=== PATIENT | female | born 1955 | race Caucasian/White ===

== ENCOUNTER → 2016-05-06 | Outpatient (CLI) | payer OTHER ==
[~2016-05-06] MED LIST: ALLE25CA OR; BACL10TA2 PO; BUPIVACAINE HCL 0.25% 10 ML VIAL As Ordered ONE; BUPIVACAINE HCL 0.25% 30 ML VIAL As Ordered ONE; CALC500T49 OR; CARI350T; CRANBERRY TABLETS PO; DESONIDE TOP; IBUP800T OR; IBUP80TA PO; LIDO5DIS; LIDO5DIS TD; Nasonex; Omega 3 PO; RED RICE YEAST; SING10TA31 PO; SING10TA32 PO; SOMA250T; THERGRAN; TRIAMCINOLONE ACETONIDE SUSP 40 MG/ML VIAL (J3301) As Ordered ONE; VIT D 2000 PO; [UNRECOGNIZED DRUG - OTHER]; [UNRECOGNIZED DRUG - OTHER] PO; patanol OU
--- NOTE | 2016-05-17 00:13 | ECWPNPC ---
PATIENT NAME: ZAKIA BLAKE : 1955 GENDER: FEMALE VISIT DATE: 05/06/2016 DISCHARGE DATE: 05/06/16 1117 VISIT LOCKED DATE TIME: PHYSICIAN: JAVAD VILLALOBOS RESOURCE: JAVAD VILLALOBOS REASON FOR APPOINTMENT 1. TPI W/C HISTORY OF PRESENT ILLNESS HISTORY OF PRESENT ILLNESS: PAIN THE PATIENT DESCRIBES THE PAIN... FALL RISK SCREENING: SCREENING :NO FALLS IN THE PAST YEAR CURRENT MEDICATIONS TAKING CALCIUM 500 MG TABLET ORALLY DAILY, NOTES: 05-05-16699 TAKING BENADRYL 25 MG TABLET 1 TABLET NEEDED ORALLY EVERY 6 HRS, NOTES: NONE LATELY TAKING IBUPROFEN 800 MG TABLET 1 TABLET NEEDED ORALLY THREE TIMES A DAY, NOTES: 1NONE LATELY TAKING SINGULAIR 10 MG TABLET 1 TABLET ORALLY ONCE A DAY, NOTES: 05-06-16529 TAKING VITAMIN D 1000 UNIT CAPSULE 1 CAPSULE ORALLY ONCE A DAY, NOTES: 05-05-16699 TAKING CRANBERRY TABLET 1 TAB ORALLY DAILY, NOTES: 05-05-16699 TAKING DESONIDE CREAM 1 APPLICATION TO AFFECTED AREA EXTERNALLY TWICE A DAY, NOTES: 05-05-16699 TAKING PATANOL SOLUTION 1 DROP INTO AFFECTED EYE OPHTHALMIC DIRECTED, NOTES: NONE LATELY TAKING ST [place] WORT TABLET 2 TABLET ORALLY ONCE A DAY, NOTES: 05-05-16699 TAKING BACLOFEN 10 MG TABLET ORALLY BID PRN FOR SPASMS, NOTES: NONE LATELY NOT-TAKING BACLOFEN 10 MG TABLET 1 TAB ORALLY THREE TIMES A DAY MEDICATION LIST REVIEWED AND RECONCILED WITH THE PATIENT PAST MEDICAL HISTORY ASTHMA GERD ALLERGIES WHEAT: NAUSEA/VOMITING LACTOSE: NAUSEA/VOMITING: ALLERGY BANDAIDS: RASH: ALLERGY FLEXERIL: HIVES: ALLERGY ANTIBIOTIC: RASH: ALLERGY NITROFURANTOIN: RASH: ALLERGY SOCIAL HISTORY GENERAL: TOBACCO USE ARE YOU A:NONSMOKER LEARNING BARRIERS / SPECIAL NEEDS ORIENTED TO PLAN OF CARE: PATIENT, PAIN MANAGEMENT PATIENT, ORIENTED TO PLAN OF CARE: PATIENT, PAIN MANAGEMENT PATIENT. NEW PATIENT PAIN DIARY TODAY'S VISITNOTES FROM 0-10, WHAT LEVEL IS YOUR PAIN TODAY?0 PAIN CLINIC PFS, CLERGY, PUBLIC HEALTH REFERRALS PFS REFERRAL NEEDED?NO CLERGY REFERRAL NEEDED?NO PUBLIC HEALTH REFERRAL NEEDED?NO WAS THE PROVIDER NOTIFIED OF ANY PERTINENT INFO?NO PFS REFERRAL NEEDED?NO CLERGY REFERRAL NEEDED?NO PUBLIC HEALTH REFERRAL NEEDED?NO WAS THE PROVIDER NOTIFIED OF ANY PERTINENT INFO?NO REVIEW OF SYSTEMS CONSTITUTIONAL: ANY CHANGE IN YOUR MEDICAL CONDITION? NO . CHILLS NO . FEVER NO . INFECTION: DO YOU HAVE NEW INFECTIONS? NO . DO YOU HAVE HISTORY OF MRSA? NO . MUSCULOSKELETAL: ANY NEW PATTERNS OF PAIN OR NUMBNESS? NO . GASTROENTEROLOGY: ANY NEW CHANGE IN BOWEL CONTROL? NO . GENITOURINARY: ANY NEW CHANGE IN BLADDER CONTROL? NO . IS THERE A CHANCE YOU COULD BE ? NO . HEMATOLOGY/LYMPH: DO YOU TAKE ANY BLOOD THINNERS? (FOR EXAMPLE- COUMADIN, PLAVIX, AGGRENOX, PLATEL, PRADAXA, OR XARELTO) NO . WHEN WAS YOUR LAST DOSE? DATE: TIME: . NEUROLOGY: HAVE YOU FALLEN IN THE PAST 6 MONTHS? NO . ANY NEW EXTREMITY NUMBNESS OR WEAKNESS? NO . CARDIOLOGY: DO YOU HAVE A PACEMAKER OR DEFIBRILLATOR? NO . RESPIRATORY: HAVE YOU BEEN SICK IN THE PAST WEEK? NO . FEVER NO . FLU LIKE SYMPTOMS? NO . COUGH NO . INTEGUMENTARY: DO YOU HAVE ANY RASHES OR OPEN SORES? NO . ALLERGIC/IMMUNO: ARE YOU ALLERGIC TO SHELLFISH OR IV DYE? NO . ANY NEW ALLERGIES? NO . PSYCHIATRIC: DO YOU HAVE THOUGHTS OF HURTING YOURSELF OR SOMEONE ELSE? NO . ARE YOU ABUSED, NEGLECTED, OR IN AN UNSAFE ENVIRONMENT? NO . ENDOCRINOLOGY: ARE YOU DIABETIC? NO . OTHER: DO YOU NEED ANY PRESCRIPTIONS? NO . IF YES, PLEASE LIST: ____ . ANY NEW PROBLEMS WITH YOUR MEDICATIONS? NO . WHEN DID YOU LAST EAT? ____1900 05-05-16 . WHEN DID YOU LAST DRINK? ____0530 05-06-16 WATER . WHAT DID YOU LAST DRINK? ____WATER . NAME OF PERSON DRIVING YOU HOME? ____ . DO YOU HAVE ANY OTHER QUESTIONS OR CONCERNS NO . REVIEWED BY: PROVIDER: . VITAL SIGNS WT 149 LBS, HT 61 1/2, BMI 27.69 INDEX, BP 134/65 MM HG, HR 59 /MIN, RR 16 /MIN, TEMP 97.9 F, OXYGEN SAT % 96%, NA INITIALS SC 09:55, REVIEWED BY: KG. ASSESSMENTS MYALGIA - M79.1 (PRIMARY) PROCEDURES PN TRIGGER POINT INJECTION WITH STEROIDS PRE PROCEDURE DIAGNOSIS 1. MYALGIA 2. PAIN AT BILATERAL THORACIC AREA AND BILATERAL LOW BACK AREA POST PROCEDURE DIAGNOSIS 1. MYALGIA 2. PAIN AT BILATERAL THORACIC AREA AND BILATERAL LOW BACK AREA PROCEDURE TRIGGER POINT INJECTION AT BILATERAL THORACIC AREA AND BILATERAL LOW BACK AREA SURGEON DR. JAVAD VILLALOBOS PROCESSING SUPERVISOR NONE ANESTHESIA LOCAL PRE PROCEDURE NOTE THE PATIENT HAS A HISTORY OF CHRONIC PAIN AT THE BILATERAL THORACIC AREA AND BILATERAL LOW BACK AREA. I EVALUATE THE PATIENT AND REVIEWED THE CHART. THERE IS EVIDENCE OF BANDS OF TISSUE WITH RESTRICTION OF MOVEMENT AND PRESENCE OF TRIGGER POINT AT THE AFFECTED AREA. I WENT OVER THE RISKS, ALTERNATIVES, AND BENEFITS ASSOCIATED WITH THIS PROCEDURE. THE PATIENT WOULD LIKE TO PROCEED AND GIVE CONSENT TO PERFORMED THE PROCEDURE. THE PATIENT DENIES UNEXPLAINABLE WEIGHT LOSS, FEVER, CHILLS, OR NEW CHANGES IN URINARY OR BOWEL CONTROL DESCRIPTION OF PROCEDURE THE PATIENT WAS BROUGHT TO THE PROCEDURE ROOM AND PLACED IN THE SITTING POSITION. THE AREA WAS CLEANED WITH ALCOHOL. THE PROCEDURE WAS DONE USING ASEPTIC STERILE TECHNIQUE. I CHECKED LATERALITY AND THE LEVEL WHERE THE PROCEDURE WAS GOING TO BE PERFORMED WITH THE PATIENT AND THE SUPPORTING STAFF AT THE MOMENT OF THE TIME OUT IN THE PROCEDURE ROOM. USING A 25-GAUGE NEEDLE, TRIGGER POINTS WERE INJECTED AT THE BILATERAL THORACIC AREA AND BILATERAL LOW BACK AREA WITH A TOTAL OF 40 ML OF BUPIVACAINE 0.25% AND KENALOG 40 MG. THERE WAS NO EVIDENCE OF BLOOD, PARESTHESIA OR CEREBROSPINAL FLUID DURING THE PROCEDURE. THE PATIENT WAS SENT TO THE RECOVERY ROOM. THE PATIENT WAS MOVING THE EXTREMITIES AND DOING WELL. THERE WAS NO COMPLICATION DURING THE PROCEDURE POST PROCEDURE NOTE THE PATIENT WILL BE SEEN IN A FOLLOW UP IN THE NEXT FEW WEEKS. INSTRUCTIONS WERE GIVEN, QUESTIONS WERE ANSWERED, AND THE PATIENT EXPRESSED UNDERSTANDING AND AGREES WITH THE PLAN. INSTRUCTIONS WERE GIVEN, QUESTIONS WERE ANSWERED, PATIENT REPORTS UNDERSTANDING AND AGREES WITH THE PLAN. I, MICHAEL QUINONEZ, DOCUMENTED THE ABOVE INFORMATION ACTING A SCRIBE FOR DR. VILLALOBOS. I HAVE REVIEWED THE ABOVE DOCUMENT, WRITTEN BY MICHAEL QUINONEZ SCRIBArchana AND I VERIFY THAT IT IS ACCURATE. PROCEDURE CODES 81625 INJECT TRIGGER POINTS 3/> FOLLOW UP 3 WEEKS ELECTRONICALLY SIGNED BY JAVAD VILLALOBOS MD ON 05/16/2016 AT 07:42 PM EST DISCLAIMER : THIS IS A VISIT SUMMARY EXTRACTED FROM THE [employer] CHART. IT IS NOT A COPY OF THE [employer] PROGRESS NOTE. [facility]
== END ==
LOC: M PAIN 10:00
PROVIDERS: ATTEND Anesthesiology
DX: G89.29 Other chronic pain (principal); M79.1 Myalgia; M54.6 Pain in thoracic spine; M54.5 Low back pain; K21.9 Gastro-esophageal reflux disease without esophagitis; J45.909 Unspecified asthma, uncomplicated; E73.9 Lactose intolerance, unspecified; L23.1 Allergic contact dermatitis due to adhesives; Z91.018 Allergy to other foods; Z88.1 Allergy status to other antibiotic agents; Z88.8 Allergy status to other drugs, medicaments and biological substances; Z79.1 Long term (current) use of non-steroidal anti-inflammatories (NSAID); Z79.899 Other long term (current) drug therapy
CPT/HCPCS: 20553; J3301

== ENCOUNTER → 2016-06-17 | Outpatient (CLI) | payer OTHER ==
[~2016-06-17] MED LIST changes: -BUPIVACAINE HCL 0.25% 10 ML VIAL As Ordered ONE; -BUPIVACAINE HCL 0.25% 30 ML VIAL As Ordered ONE; -TRIAMCINOLONE ACETONIDE SUSP 40 MG/ML VIAL (J3301) As Ordered ONE
--- NOTE | 2016-06-26 23:25 | ECWPNPC ---
PATIENT NAME: ZAKIA BLAKE : 1955 GENDER: FEMALE VISIT DATE: 06/17/2016 DISCHARGE DATE: 06/17/16 1504 VISIT LOCKED DATE TIME: PHYSICIAN: JAVAD VILLALOBOS RESOURCE: JAVAD VILLALOBOS REASON FOR APPOINTMENT 1. W/C POST PROCEDURE HISTORY OF PRESENT ILLNESS HISTORY OF PRESENT ILLNESS: PAIN THE PATIENT DESCRIBES THE PAIN... 60 YEAR OLD FEMALE PATIENT WITH HISTORY OF CHRONIC THORACIC AND LUMBAR PAIN. PATIENT DESCRIBES THE PAIN ACHING AND THROBBING WITH A PAIN SCORE OF 3/10 ON TODAY'S VISIT. PATIENT WAS INJURED IN A WORK RELATED ACCIDENT ON 07-28-1998 WORKING FOR [employer]. 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 PATIENT RECEIVED A TPI ON 05-06-2016 AND REPORTS OF GETTING GOOD PAIN RELIEF FROM THE INJECTION, BUT THE PAIN IS SLOWLY STARTING TO COME BACK. PATIENT REPORTS THAT SHE DOES HAVE DIFFICULTIES SLEEPING AT NIGHT DUE TO THE DISCOMFORT FROM THE PAIN. PATIENT STATES THAT SOMETIMES SHE GETS A JERKING FEELING FROM HER LEGS AND THE LEFT LEG WOULD BE THE WORST. PATIENT STATES THAT TODAY SHE HAS RADIATING PAIN FROM HER GOING DOWN HER LEFT LEG, SOMETIMES IT WOULD BE BOTH LEGS, BUT MOSTLY IS OCCURS ON THE LEFT LEG. PATIENT STATES THAT HER LOW BACK HURTS THE MOST TODAY. PATIENT STATES THAT WEARING A BRA IS PAINFUL AND CAUSES HER PAIN IN HER MID BACK. PATIENT DENIES UNEXPLAINABLE WEIGHT LOSS, FEVER, CHILLS, NEW CHANGES ON HER URINARY OR BOWEL CONTROL. FALL RISK SCREENING: SCREENING :NO FALLS IN THE PAST YEAR CURRENT MEDICATIONS TAKING CALCIUM 500 MG TABLET ORALLY DAILY, NOTES: 05-05-16699 TAKING BENADRYL 25 MG TABLET 1 TABLET NEEDED ORALLY EVERY 6 HRS, NOTES: NONE LATELY TAKING IBUPROFEN 800 MG TABLET 1 TABLET NEEDED ORALLY THREE TIMES A DAY, NOTES: 1NONE LATELY TAKING SINGULAIR 10 MG TABLET 1 TABLET ORALLY ONCE A DAY, NOTES: 05-06-16529 TAKING VITAMIN D 1000 UNIT CAPSULE 1 CAPSULE ORALLY ONCE A DAY, NOTES: 05-05-16699 TAKING CRANBERRY TABLET 1 TAB ORALLY DAILY, NOTES: 05-05-16699 TAKING DESONIDE CREAM 1 APPLICATION TO AFFECTED AREA EXTERNALLY TWICE A DAY, NOTES: 05-05-16699 TAKING PATANOL SOLUTION 1 DROP INTO AFFECTED EYE OPHTHALMIC DIRECTED, NOTES: NONE LATELY TAKING ST [place] WORT TABLET 2 TABLET ORALLY ONCE A DAY, NOTES: 05-05-16699 TAKING BACLOFEN 10 MG TABLET ORALLY BID PRN FOR SPASMS, NOTES: NONE LATELY NOT-TAKING BACLOFEN 10 MG TABLET 1 TAB ORALLY THREE TIMES A DAY MEDICATION LIST REVIEWED AND RECONCILED WITH THE PATIENT PAST MEDICAL HISTORY ASTHMA GERD ALLERGIES WHEAT: NAUSEA/VOMITING LACTOSE: NAUSEA/VOMITING: ALLERGY BANDAIDS: RASH: ALLERGY FLEXERIL: HIVES: ALLERGY ANTIBIOTIC: RASH: ALLERGY NITROFURANTOIN: RASH: ALLERGY SURGICAL HISTORY CHOLECYSTECTOMY 2004 CYSTOCELE / RECTOCELE 2007 TUBAL LIGATION 1989 SPLEENECTOMY 1977 FAMILY HISTORY NO FAMILY HISTORY DOCUMENTED. SOCIAL HISTORY GENERAL: TOBACCO USE ARE YOU A:NONSMOKER LEARNING BARRIERS / SPECIAL NEEDS ORIENTED TO PLAN OF CARE: PATIENT, PAIN MANAGEMENT PATIENT, ORIENTED TO PLAN OF CARE: PATIENT, PAIN MANAGEMENT PATIENT. NEW PATIENT PAIN DIARY TODAY'S VISITNOTES FROM 0-10, WHAT LEVEL IS YOUR PAIN TODAY?0 PAIN CLINIC PFS, CLERGY, PUBLIC HEALTH REFERRALS PFS REFERRAL NEEDED?NO CLERGY REFERRAL NEEDED?NO PUBLIC HEALTH REFERRAL NEEDED?NO WAS THE PROVIDER NOTIFIED OF ANY PERTINENT INFO?NO PFS REFERRAL NEEDED?NO CLERGY REFERRAL NEEDED?NO PUBLIC HEALTH REFERRAL NEEDED?NO WAS THE PROVIDER NOTIFIED OF ANY PERTINENT INFO?NO HOSPITALIZATION/MAJOR DIAGNOSTIC PROCEDURE NO HOSPITALIZATION HISTORY. REVIEW OF SYSTEMS CONSTITUTIONAL: ANY CHANGE IN YOUR MEDICAL CONDITION? NO . CHILLS NO . FEVER NO . INFECTION: DO YOU HAVE NEW INFECTIONS? NO . DO YOU HAVE HISTORY OF MRSA? NO . MUSCULOSKELETAL: ANY NEW PATTERNS OF PAIN OR NUMBNESS? NO . GASTROENTEROLOGY: ANY NEW CHANGE IN BOWEL CONTROL? NO . GENITOURINARY: ANY NEW CHANGE IN BLADDER CONTROL? NO . IS THERE A CHANCE YOU COULD BE ? NO . HEMATOLOGY/LYMPH: DO YOU TAKE ANY BLOOD THINNERS? (FOR EXAMPLE- COUMADIN, PLAVIX, AGGRENOX, PLATEL, PRADAXA, OR XARELTO) NO . WHEN WAS YOUR LAST DOSE? DATE: TIME: . NEUROLOGY: HAVE YOU FALLEN IN THE PAST 6 MONTHS? NO . ANY NEW EXTREMITY NUMBNESS OR WEAKNESS? NO . CARDIOLOGY: DO YOU HAVE A PACEMAKER OR DEFIBRILLATOR? NO . RESPIRATORY: HAVE YOU BEEN SICK IN THE PAST WEEK? NO . FEVER NO . FLU LIKE SYMPTOMS? NO . COUGH NO . INTEGUMENTARY: DO YOU HAVE ANY RASHES OR OPEN SORES? NO . ALLERGIC/IMMUNO: ARE YOU ALLERGIC TO SHELLFISH OR IV DYE? NO . ANY NEW ALLERGIES? NO . PSYCHIATRIC: DO YOU HAVE THOUGHTS OF HURTING YOURSELF OR SOMEONE ELSE? NO . ARE YOU ABUSED, NEGLECTED, OR IN AN UNSAFE ENVIRONMENT? NO . ENDOCRINOLOGY: ARE YOU DIABETIC? NO . OTHER: DO YOU NEED ANY PRESCRIPTIONS? NO . IF YES, PLEASE LIST: ____ . ANY NEW PROBLEMS WITH YOUR MEDICATIONS? NO . WHEN DID YOU LAST EAT? ____ . WHEN DID YOU LAST DRINK? ____ . WHAT DID YOU LAST DRINK? ____ . NAME OF PERSON DRIVING YOU HOME? ____ . DO YOU HAVE ANY OTHER QUESTIONS OR CONCERNS NO . REVIEWED BY: PROVIDER: JAVAD VILLALOBOS MD . VITAL SIGNS WT 153.6 LBS, HT 61 1/2, BMI 28.55 INDEX, BP 141/66 MM HG, HR 60 /MIN, RR 16 /MIN, TEMP 98.1 F, OXYGEN SAT % 96, NA INITIALS TL 1315, REVIEWED BY: VD. EXAMINATION : PATIENT IS ALERT O X 3 AND COOPERATIVE. PATIENT LEFT LEG IS WEAKER AT FLEXION AND EXTENSION COMPARED TO THE RIGHT LEG. THERE IS TENDERNESS AND PAIN IN THE FACET JOINTS IN THE LUMBAR PARASPINAL MUSCLE GROUP. THERE IS AN INDENTATION IN THE LEFT THORACIC AREA IN THE T5. MRI OF THE LUMBAR SPINE DONE ON 10-17-2012 SHOWS DISC BULGING. 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 BLAKE'S PAIN MANAGEMENT CASE. AT THIS TIME I WILL REFILL BACLOFEN TODAY. I DISCUSSED WITH THE PATIENT THAT I WILL LIKE TO TALK TO DR. SPENCER ABOUT THE READINGS ON HER THORACIC MRI. AFTER REVIEWING THE LUMBAR MRI AND THE EXAMINATION OF THE PATIENT, SHE IS A GOOD CANDIDATE FOR A LUMBAR EPIDURAL AT L5-S1. WE DISCUSSED THE RISK, BENEFITS, AND ALTERNATIVES AND THE PATIENT WOULD LIKE TO PROCEED. PATIENT WILL BE BOOKED PENDING APPROVAL. PATIENT TO FOLLOW UP WITH ME IN 2 MONTHS. INSTRUCTIONS WERE GIVEN, QUESTIONS WERE ANSWERED, PATIENT REPORTS UNDERSTANDING AND AGREES WITH THE PLAN. IMICHAEL, DOCUMENTED THE ABOVE INFORMATION ACTING A SCRIBE FOR DR. VILLALOBOS. I HAVE REVIEWED THE ABOVE DOCUMENT, WRITTEN BY MICHAEL QUINONEZ SCRIBE AND I VERIFY THAT IT IS ACCURATE. OTHERS REFILL BACLOFEN TABLET, 10 MG, 1 TAB, ORALLY, BID PRN FOR SPASMS AND PAIN, 30 DAY(S), 60, REFILLS 2, NOTES: NONE LATELY PROCEDURES PN WORKMANS' COMP OPINION IN YOUR OPINION, WAS THE INCIDENT THAT THE PATIENT DESCRIBED THE COMPETENT MEDICAL CAUSE OF THIS INJURY/ILLNESS? YES ARE THE PATIENT'S COMPLAINTS CONSISTENT WITH HIS/HER HISTORY OF THE INJURY/ILLNESS? YES IS THE PATIENT'S HISTORY OF THE INJURY/ILLNESS CONSISTENT WITH YOUR OBJECTIVE FINDING? YES WHAT IS THE PERCENTAGE OF TEMPORARY IMPAIRMENT? MODERATE TO MARKED = 66.7% IS THE PATIENT WORKING? 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 IT IS NOT A COPY OF THE [employer] PROGRESS NOTE. MTDD
== END ==
LOC: M PAIN 13:20
PROVIDERS: ATTEND Anesthesiology
DX: Z09 Encounter for follow-up examination after completed treatment for conditions other than malignant neoplasm (principal); G89.29 Other chronic pain; M51.16 Intervertebral disc disorders with radiculopathy, lumbar region; M51.17 Intervertebral disc disorders with radiculopathy, lumbosacral region; K21.9 Gastro-esophageal reflux disease without esophagitis; J45.909 Unspecified asthma, uncomplicated; Z91.018 Allergy to other foods; E73.9 Lactose intolerance, unspecified; L23.1 Allergic contact dermatitis due to adhesives; Z88.8 Allergy status to other drugs, medicaments and biological substances; Z88.1 Allergy status to other antibiotic agents; Z79.1 Long term (current) use of non-steroidal anti-inflammatories (NSAID); Z79.899 Other long term (current) drug therapy

== ENCOUNTER → 2016-08-10 | Outpatient (CLI) | payer OTHER ==
[~2016-08-10] MED LIST changes: +ISOVUE-M 300 61% 15ML VIAL (Q9967) As Ordered ONE; +LIDOCAINE 1% SDV INJ 30 ML VIAL As Ordered ONE; +diazePAM 5 MG TAB As Ordered ONE; +methylPREDNISolone SUSP 40 MG/ML (DEPO-medrol) VIAL (J1030) As Ordered ONE; +oxyCODONE 5MG TAB As Ordered ONE
--- NOTE | 2016-08-10 18:11 | REP ---
FLUOROSCOPIC GUIDED SPINAL INJECTION: The films were reviewed with Dr. Coleman. The patient has a history of back pain. The portable C-Arm is provided in the OR for Dr. Harris for fluoroscopic guidance. Four intraoperative spot films were obtained for needle placement verification for lumbar epidural injection. The films are on the PACs system and are available for review. 12 seconds of fluoroscopy time was utilized for this procedure. Reviewed by LOI Lopes 08/11/2016 09:43 AEdited and Signed by Polo Coleman MD 08/11/2016 04:42 P
--- NOTE | 2016-08-15 23:54 | ECWPNPC ---
PATIENT NAME: ZAKIA BLAKE : 1955 GENDER: FEMALE VISIT DATE: 08/10/2016 DISCHARGE DATE: 08/10/16 1228 VISIT LOCKED DATE TIME: PHYSICIAN: JAVAD VILLALOBOS RESOURCE: JAVAD VILLALOBOS REASON FOR APPOINTMENT 1. W/C LESI HISTORY OF PRESENT ILLNESS HISTORY OF PRESENT ILLNESS: PAIN THE PATIENT DESCRIBES THE PAIN... FALL RISK SCREENING: SCREENING :NO FALLS IN THE PAST YEAR CURRENT MEDICATIONS TAKING BACLOFEN 10 MG TABLET 1 TAB ORALLY BID PRN FOR SPASMS AND PAIN, NOTES: 08/09 9PM TAKING CALCIUM 500 MG TABLET ORALLY DAILY, NOTES: 08/09 7AM TAKING BENADRYL 25 MG TABLET 1 TABLET NEEDED ORALLY EVERY 6 HRS, NOTES: NONE LATELY TAKING IBUPROFEN 800 MG TABLET 1 TABLET NEEDED ORALLY THREE TIMES A DAY, NOTES: 08/10 2AM TAKING SINGULAIR 10 MG TABLET 1 TABLET ORALLY ONCE A DAY, NOTES: 08/09 7AM TAKING VITAMIN D 1000 UNIT CAPSULE 1 CAPSULE ORALLY ONCE A DAY, NOTES: 08/09 7AM TAKING CRANBERRY TABLET 1 TAB ORALLY DAILY, NOTES: 2 WEEKS TAKING DESONIDE CREAM 1 APPLICATION TO AFFECTED AREA EXTERNALLY TWICE A DAY, NOTES: 08/10 7AM TAKING PATANOL SOLUTION 1 DROP INTO AFFECTED EYE OPHTHALMIC DIRECTED, NOTES: 08/[address] [place] WORT TABLET 2 TABLET ORALLY ONCE A DAY, NOTES: 08/09 7AM NOT-TAKING BACLOFEN 10 MG TABLET 1 TAB ORALLY THREE TIMES A DAY MEDICATION LIST REVIEWED AND RECONCILED WITH THE PATIENT PAST MEDICAL HISTORY ASTHMA GERD ALLERGIES WHEAT: NAUSEA/VOMITING LACTOSE: NAUSEA/VOMITING: ALLERGY BANDAIDS: RASH: ALLERGY FLEXERIL: HIVES: ALLERGY ANTIBIOTIC: RASH: ALLERGY NITROFURANTOIN: RASH: ALLERGY REVIEW OF SYSTEMS CONSTITUTIONAL: ANY CHANGE IN YOUR MEDICAL CONDITION? NO . CHILLS NO . FEVER NO . INFECTION: DO YOU HAVE NEW INFECTIONS? NO . DO YOU HAVE HISTORY OF MRSA? NO . MUSCULOSKELETAL: ANY NEW PATTERNS OF PAIN OR NUMBNESS? NO . GASTROENTEROLOGY: ANY NEW CHANGE IN BOWEL CONTROL? NO . GENITOURINARY: ANY NEW CHANGE IN BLADDER CONTROL? NO . IS THERE A CHANCE YOU COULD BE ? NO . HEMATOLOGY/LYMPH: DO YOU TAKE ANY BLOOD THINNERS? (FOR EXAMPLE- COUMADIN, PLAVIX, AGGRENOX, PLATEL, PRADAXA, OR XARELTO) NO . WHEN WAS YOUR LAST DOSE? DATE: TIME: . NEUROLOGY: HAVE YOU FALLEN IN THE PAST 6 MONTHS? NO . ANY NEW EXTREMITY NUMBNESS OR WEAKNESS? NO . CARDIOLOGY: DO YOU HAVE A PACEMAKER OR DEFIBRILLATOR? NO . RESPIRATORY: HAVE YOU BEEN SICK IN THE PAST WEEK? NO . FEVER NO . FLU LIKE SYMPTOMS? NO . COUGH NO . INTEGUMENTARY: DO YOU HAVE ANY RASHES OR OPEN SORES? NO . ALLERGIC/IMMUNO: ARE YOU ALLERGIC TO SHELLFISH OR IV DYE? NO . ANY NEW ALLERGIES? NO . PSYCHIATRIC: DO YOU HAVE THOUGHTS OF HURTING YOURSELF OR SOMEONE ELSE? NO . ARE YOU ABUSED, NEGLECTED, OR IN AN UNSAFE ENVIRONMENT? NO . ENDOCRINOLOGY: ARE YOU DIABETIC? NO . OTHER: DO YOU NEED ANY PRESCRIPTIONS? NO . IF YES, PLEASE LIST: ____ . ANY NEW PROBLEMS WITH YOUR MEDICATIONS? NO . WHEN DID YOU LAST EAT? 08/09 6PM . WHEN DID YOU LAST DRINK? 08/10 7AM . WHAT DID YOU LAST DRINK? WATER . NAME OF PERSON DRIVING YOU HOME? CHARBEL HADLEY . DO YOU HAVE ANY OTHER QUESTIONS OR CONCERNS NO . REVIEWED BY: PROVIDER: . VITAL SIGNS WT 153.0 LBS, HT 61 1/2, BMI 28.44 INDEX, BP 140/67 MM HG, HR 59 /MIN, RR 16 /MIN, TEMP 97.1 F, OXYGEN SAT % 96%, SAFE IN ENV? (Y/N) Y, NA INITIALS TL 1020, REVIEWED BY: DS. ASSESSMENTS INTERVERTEBRAL DISC DISORDERS WITH RADICULOPATHY, LUMBOSACRAL REGION - M51.17 (PRIMARY) PROCEDURES PRE PROCEDURE DIAGNOSIS LUMBOSACRAL RADICULOPATHY, LUMBOSACRAL DISC DISORDER WITH RADICULOPATHY POST PROCEDURE DIAGNOSIS LUMBOSACRAL RADICULOPATHY , LUMBOSACRAL DISC DISORDER WITH RADICULOPATHY PROCEDURE LUMBAR EPIDURAL STEROID INJECTION UNDER FLUOROSCOPIC GUIDANCE SURGEON DR. JAVAD VILLALOBOS CASING FINISHER AND STUFFER NONE ANESTHESIA LOCAL PRE PROCEDURE NOTE THE PATIENT HAS A HISTORY OF CHRONIC LOW BACK PAIN. I EVALUATE THE PATIENT AND REVIEWED THE CHART. I WENT OVER THE RISKS, ALTERNATIVES, AND BENEFITS ASSOCIATED WITH THIS PROCEDURE. THE PATIENT WOULD LIKE TO PROCEED AND GIVE CONSENT TO PERFORMED THE PROCEDURE. THE PATIENT DENIES UNEXPLAINABLE WEIGHT LOSS, FEVER, CHILLS, OR NEW CHANGES IN URINARY OR BOWEL CONTROL. DESCRIPTION OF PROCEDURE THE PATIENT WAS BROUGHT TO THE PROCEDURE ROOM AND PLACED IN THE PRONE POSITION. THE LUMBOSACRAL AREA WAS CLEANED WITH BETADINE SOLUTION AND DRAPED ASEPTICALLY. THE PROCEDURE WAS DONE UNDER STERILE CONDITIONS. I CHECKED LATERALITY AND THE LEVEL WHERE THE PROCEDURE WAS GOING TO BE PERFORMED WITH THE PATIENT AND THE SUPPORTING STAFF AT THE MOMENT OF THE TIME OUT IN THE PROCEDURE ROOM. UNDER FLUOROSCOPIC GUIDANCE, THE TARGET POINT WAS SELECTED AT THE INTERLAMINAR LEVEL OF L5-S1. LIDOCAINE WAS USED TO NUMB THE SKIN AND THE SUBCUTANEOUS TISSUE BELOW IT. EPIDURAL TUOHY NEEDLE, 17-GAUGE, WAS ADVANCED UNDER FLUOROSCOPIC GUIDANCE AND FOLLOWING PATIENT FEEDBACK UNTIL THE EPIDURAL SPACE WAS REACHED, 7 CM DEEP INTO THE SKIN BY THE LOSS OF RESISTANCE TECHNIQUE. ISOVUE M DYE 30%, 0.25 ML, WAS INJECTED SHOWING ADEQUATE SPREAD OF THE DYE. THEN, A SOLUTION OF 3 ML OF NORMAL SALINE WITH DEPO-MEDROL 60 MG WAS INJECTED SLOWLY FOLLOWING PATIENT FEEDBACK. THERE WAS NO EVIDENCE OF BLOOD, PARESTHESIA OR CEREBROSPINAL FLUID DURING THE PROCEDURE. THE PATIENT WAS SENT TO THE RECOVERY ROOM. THE PATIENT WAS MOVING THE EXTREMITIES AND DOING WELL. THERE WAS NO COMPLICATION DURING THE PROCEDURE. FLUOROSCOPY TIME WAS 12 SECONDS. POST PROCEDURE NOTE THE PATIENT WILL BE SEEN IN A FOLLOW UP IN THE NEXT FEW WEEKS. INSTRUCTIONS WERE GIVEN, QUESTIONS WERE ANSWERED, AND THE PATIENT EXPRESSED UNDERSTANDING AND AGREES WITH THE PLAN. I, MICHAEL QUINONEZ, DOCUMENTED THE ABOVE INFORMATION ACTING A SCRIBE FOR DR. VILLALOBOS. I HAVE REVIEWED THE ABOVE DOCUMENT, WRITTEN BY MICHAEL QUINONEZ SCRIBArchana AND I VERIFY THAT IT IS ACCURATE. PN WORKMANS' COMP OPINION IN YOUR OPINION, WAS THE INCIDENT THAT THE PATIENT DESCRIBED THE COMPETENT MEDICAL CAUSE OF THIS INJURY/ILLNESS? YES ARE THE PATIENT'S COMPLAINTS CONSISTENT WITH HIS/HER HISTORY OF THE INJURY/ILLNESS? YES IS THE PATIENT'S HISTORY OF THE INJURY/ILLNESS CONSISTENT WITH YOUR OBJECTIVE FINDING? YES WHAT IS THE PERCENTAGE OF TEMPORARY IMPAIRMENT? MODERATE TO MARKED = 66.7% IS THE PATIENT WORKING? YES DOCTOR ON SITE: JAVAD HATHAWAY MD DIAGNOSTIC IMAGING [facility] FLUORO GUIDE SPINE INJECTION (PAIN)[id number] PROCEDURE CODES 19900 LUMBAR/SACRAL W/ IMAGING [id number] RADXPS IN END [id number] PXD DISPOSITION & COMMUNICATION FOLLOW UP 3 WEEKS ELECTRONICALLY SIGNED BY JAVAD VILLALOBOS MD ON 08/15/2016 AT 05:34 PM EDT DISCLAIMER : THIS IS A VISIT SUMMARY EXTRACTED FROM THE [employer] CHART. IT IS NOT A COPY OF THE [employer] PROGRESS NOTE. SACHA
== END | disposition home or self-care (01) ==
LOC: M PAIN 10:20
PROVIDERS: ATTEND Anesthesiology
DX: G89.29 Other chronic pain (principal); M51.17 Intervertebral disc disorders with radiculopathy, lumbosacral region; J45.909 Unspecified asthma, uncomplicated; K21.9 Gastro-esophageal reflux disease without esophagitis; Z79.899 Other long term (current) drug therapy; Z88.1 Allergy status to other antibiotic agents; Z88.8 Allergy status to other drugs, medicaments and biological substances; L23.1 Allergic contact dermatitis due to adhesives; Z91.018 Allergy to other foods; E73.9 Lactose intolerance, unspecified
CPT/HCPCS: 62323; J1030; Q9967

== ENCOUNTER → 2016-09-10 | Outpatient (CLI) | payer OTHER ==
[~2016-09-10] MED LIST changes: -ISOVUE-M 300 61% 15ML VIAL (Q9967) As Ordered ONE; -LIDOCAINE 1% SDV INJ 30 ML VIAL As Ordered ONE; -diazePAM 5 MG TAB As Ordered ONE; -methylPREDNISolone SUSP 40 MG/ML (DEPO-medrol) VIAL (J1030) As Ordered ONE; -oxyCODONE 5MG TAB As Ordered ONE
--- NOTE | 2016-09-21 02:19 | ECWPNPC ---
PATIENT NAME: ZAKIA BLAKE : 1955 GENDER: FEMALE VISIT DATE: 09/10/2016 DISCHARGE DATE: 09/10/16 1518 VISIT LOCKED DATE TIME: PHYSICIAN: JAVAD VILLALOBOS RESOURCE: JAVAD VILLALOBOS REASON FOR APPOINTMENT 1. POST PROCEDURE HISTORY OF PRESENT ILLNESS HISTORY OF PRESENT ILLNESS: PAIN THE PATIENT DESCRIBES THE PAIN... 61 YEAR OLD FEMALE PATIENT WITH HISTORY OF CHRONIC THORACIC AND LUMBAR PAIN. PATIENT DESCRIBES THE PAIN ACHING, STABBING, TENDER, THROBBING, AND HAVING IT ALL THE TIME WITH A PAIN SCORE OF 5/10 ON TODAY'S VISIT. PATIENT WAS INJURED IN A WORK RELATED ACCIDENT ON 07-28-1998 WORKING FOR [employer]. 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 PATIENT RECEIVED A LUMBER EPIDURAL ON 08-10-2016 AND STATES THAT THE INJECTION ONLY WORK FOR A DAY OR TWO WITH COMPLETE PAIN RELIEF, BUT THE PAIN RETURNED ON THE THIRD DAY. PATIENT REPORTS THAT HER BACK HURTS THE MOST TODAY. PATIENT REPORTS THAT SHE HAS HAD TRIGGER POINT INJECTIONS IN THE PAST AND IT PROVIDED GOOD PAIN RELIEF FOR 3 TO 4 MONTHS WITH INCREASED MOBILITY AND FUNCTIONALITY. PATIENT DENIES UNEXPLAINABLE WEIGHT LOSS, FEVER, CHILLS, NEW CHANGES ON HER URINARY OR BOWEL CONTROL. FALL RISK SCREENING: SCREENING :NO FALLS IN THE PAST YEAR CURRENT MEDICATIONS TAKING BACLOFEN 10 MG TABLET 1 TAB ORALLY BID PRN FOR SPASMS AND PAIN, NOTES: 08/09 9PM TAKING CALCIUM 500 MG TABLET ORALLY DAILY, NOTES: 08/09 7AM TAKING BENADRYL 25 MG TABLET 1 TABLET NEEDED ORALLY EVERY 6 HRS, NOTES: NONE LATELY TAKING IBUPROFEN 800 MG TABLET 1 TABLET NEEDED ORALLY THREE TIMES A DAY, NOTES: 08/10 2AM TAKING SINGULAIR 10 MG TABLET 1 TABLET ORALLY ONCE A DAY, NOTES: 08/09 7AM TAKING VITAMIN D 1000 UNIT CAPSULE 1 CAPSULE ORALLY ONCE A DAY, NOTES: 08/09 7AM TAKING CRANBERRY TABLET 1 TAB ORALLY DAILY, NOTES: 2 WEEKS TAKING DESONIDE CREAM 1 APPLICATION TO AFFECTED AREA EXTERNALLY TWICE A DAY, NOTES: 08/10 7AM TAKING PATANOL SOLUTION 1 DROP INTO AFFECTED EYE OPHTHALMIC DIRECTED, NOTES: 08/[address] [place] WORT TABLET 2 TABLET ORALLY ONCE A DAY, NOTES: 08/09 7AM NOT-TAKING BACLOFEN 10 MG TABLET 1 TAB ORALLY THREE TIMES A DAY MEDICATION LIST REVIEWED AND RECONCILED WITH THE PATIENT PAST MEDICAL HISTORY ASTHMA GERD ALLERGIES WHEAT: NAUSEA/VOMITING LACTOSE: NAUSEA/VOMITING: ALLERGY BANDAIDS: RASH: ALLERGY FLEXERIL: HIVES: ALLERGY ANTIBIOTIC: RASH: ALLERGY NITROFURANTOIN: RASH: ALLERGY SURGICAL HISTORY NO SURGICAL HISTORY DOCUMENTED. FAMILY HISTORY NO FAMILY HISTORY DOCUMENTED. SOCIAL HISTORY GENERAL: TOBACCO USE ARE YOU A:NONSMOKER LEARNING BARRIERS / SPECIAL NEEDS ORIENTED TO PLAN OF CARE: PATIENT, PAIN MANAGEMENT PATIENT, ORIENTED TO PLAN OF CARE: PATIENT, PAIN MANAGEMENT PATIENT. NEW PATIENT PAIN DIARY TODAY'S VISITNOTES FROM 0-10, WHAT LEVEL IS YOUR PAIN TODAY?0 PAIN CLINIC PFS, CLERGY, PUBLIC HEALTH REFERRALS PFS REFERRAL NEEDED?NO CLERGY REFERRAL NEEDED?NO PUBLIC HEALTH REFERRAL NEEDED?NO WAS THE PROVIDER NOTIFIED OF ANY PERTINENT INFO?NO PFS REFERRAL NEEDED?NO CLERGY REFERRAL NEEDED?NO PUBLIC HEALTH REFERRAL NEEDED?NO WAS THE PROVIDER NOTIFIED OF ANY PERTINENT INFO?NO HOSPITALIZATION/MAJOR DIAGNOSTIC PROCEDURE NO HOSPITALIZATION HISTORY. REVIEW OF SYSTEMS CONSTITUTIONAL: ANY CHANGE IN YOUR MEDICAL CONDITION? NO . CHILLS NO . FEVER NO . INFECTION: DO YOU HAVE NEW INFECTIONS? NO . DO YOU HAVE HISTORY OF MRSA? NO . MUSCULOSKELETAL: ANY NEW PATTERNS OF PAIN OR NUMBNESS? NO . GASTROENTEROLOGY: ANY NEW CHANGE IN BOWEL CONTROL? NO . GENITOURINARY: ANY NEW CHANGE IN BLADDER CONTROL? NO . IS THERE A CHANCE YOU COULD BE ? NO . HEMATOLOGY/LYMPH: DO YOU TAKE ANY BLOOD THINNERS? (FOR EXAMPLE- COUMADIN, PLAVIX, AGGRENOX, PLATEL, PRADAXA, OR XARELTO) NO . WHEN WAS YOUR LAST DOSE? DATE: TIME: . NEUROLOGY: HAVE YOU FALLEN IN THE PAST 6 MONTHS? NO . ANY NEW EXTREMITY NUMBNESS OR WEAKNESS? NO . CARDIOLOGY: DO YOU HAVE A PACEMAKER OR DEFIBRILLATOR? NO . RESPIRATORY: HAVE YOU BEEN SICK IN THE PAST WEEK? NO . FEVER NO . FLU LIKE SYMPTOMS? NO . COUGH NO . INTEGUMENTARY: DO YOU HAVE ANY RASHES OR OPEN SORES? NO . ALLERGIC/IMMUNO: ARE YOU ALLERGIC TO SHELLFISH OR IV DYE? NO . ANY NEW ALLERGIES? NO . PSYCHIATRIC: DO YOU HAVE THOUGHTS OF HURTING YOURSELF OR SOMEONE ELSE? NO . ARE YOU ABUSED, NEGLECTED, OR IN AN UNSAFE ENVIRONMENT? NO . ENDOCRINOLOGY: ARE YOU DIABETIC? NO . OTHER: DO YOU NEED ANY PRESCRIPTIONS? NO . IF YES, PLEASE LIST: ____ . ANY NEW PROBLEMS WITH YOUR MEDICATIONS? NO . WHEN DID YOU LAST EAT? ____ . WHEN DID YOU LAST DRINK? ____ . WHAT DID YOU LAST DRINK? ____ . NAME OF PERSON DRIVING YOU HOME? ____ . DO YOU HAVE ANY OTHER QUESTIONS OR CONCERNS NO . REVIEWED BY: PROVIDER: JAVAD VILLALOBOS MD . VITAL SIGNS WT 162.4 LBS, HT 61 1/2, BMI 30.18 INDEX, BP 130/59 MM HG, HR 84 /MIN, RR 16 /MIN, TEMP 97.7 F, OXYGEN SAT % 96%, NA INITIALS TL 1411, REVIEWED BY: KGPATIENT WAS WEIGHED ON PMC SCALE- TL. EXAMINATION : PATIENT IS ALERT O X 3 AND COOPERATIVE. THERE IS TENDERNESS IN THE LOW BACK AND MID BACK WITH BANDS OF TISSUES, RESTRICTION OF MOVEMENT, AND PRESENCE OF TRIGGER POINTS. MRI OF THE LUMBAR SPINE DONE ON 10-17-2012 SHOWS DISC. ASSESSMENTS MYALGIA - M79.1 (PRIMARY) TREATMENT MYALGIA NOTES: WE DISCUSSED SEVERAL ISSUES WITH MS. BLAKE'S PAIN MANAGEMENT CASE. AT THIS TIME THE PATIENT WILL CONTINUE ON THE SAME MEDICATION REGIMEN BEFORE. AFTER EXAMINING THE PATIENT, SHE IS A GOOD CANDIDATE FOR A BILATERAL THORACIC AND LOW BACK TRIGGER POINT INJECTION. WE DISCUSSED THE RISK, BENEFITS, AND ALTERNATIVES AND THE PATIENT WOULD LIKE TO PROCEED. PATIENT WILL BE BOOKED PENDING APPROVAL. PATIENT WILL FOLLOW UP WITH ME IN 3 MONTHS. INSTRUCTIONS WERE GIVEN, QUESTIONS WERE ANSWERED, PATIENT REPORTS UNDERSTANDING AND AGREES WITH THE PLAN. I, MICHAEL QUINONEZ, DOCUMENTED THE ABOVE INFORMATION ACTING A SCRIBE FOR DR. VILLALOBOS. I HAVE REVIEWED THE ABOVE DOCUMENT, WRITTEN BY MICHAEL JESSICA AND I VERIFY THAT IT IS ACCURATE. OTHERS NOTES: TRIGGER POINT INJECTION MATERIAL WAS PRINTED,TRIGGER POINT INJECTION: YOUR EXPERIENCE MATERIAL WAS PRINTED. PROCEDURES PN WORKMANS' COMP OPINION IN YOUR OPINION, WAS THE INCIDENT THAT THE PATIENT DESCRIBED THE COMPETENT MEDICAL CAUSE OF THIS INJURY/ILLNESS? YES ARE THE PATIENT'S COMPLAINTS CONSISTENT WITH HIS/HER HISTORY OF THE INJURY/ILLNESS? YES IS THE PATIENT'S HISTORY OF THE INJURY/ILLNESS CONSISTENT WITH YOUR OBJECTIVE FINDING? YES WHAT IS THE PERCENTAGE OF TEMPORARY IMPAIRMENT? MODERATE TO MARKED = 66.7% IS THE PATIENT WORKING? YES , ANY RESTRICTIONS? COMPLIANCE INVESTIGATOR DOCTOR ON SITE: JAVAD HATHAWAY MD PREVENTIVE MEDICINE PAIN CLINIC TEACHING: PROCEDURE TEACHING PRINTED INFORMATION ON TPI'S GIVEN TO AND REVIEWED WITH PT. ALONG WITH PRE-PROCEDURE INSTRUCTIONS AND SHE VERBALIZED UNDERSTANDING. AD. PROCEDURE CODES FA211 ESTABILISHED PATIENT [facility] FACILITY CHARGE G8730 PAIN ASSESS POS TOOL F/U PLAN DOC G8427 DOC MEDS VERIFIED W/PT OR RE DISPOSITION & COMMUNICATION FOLLOW UP 3 MONTHS ELECTRONICALLY SIGNED BY JAVAD VILLALOBOS MD ON 09/20/2016 AT 07:52 PM EDT DISCLAIMER : THIS IS A VISIT SUMMARY EXTRACTED FROM THE [employer] CHART. IT IS NOT A COPY OF THE [employer] PROGRESS NOTE. SACHA
== END | disposition home or self-care (01) ==
LOC: M PAIN 14:20
PROVIDERS: ATTEND Anesthesiology
DX: G89.29 Other chronic pain (principal); M79.1 Myalgia; J45.909 Unspecified asthma, uncomplicated; K21.9 Gastro-esophageal reflux disease without esophagitis; Z79.899 Other long term (current) drug therapy; E73.9 Lactose intolerance, unspecified; Z91.018 Allergy to other foods; Z88.1 Allergy status to other antibiotic agents; Z88.8 Allergy status to other drugs, medicaments and biological substances; L23.1 Allergic contact dermatitis due to adhesives

== ENCOUNTER → 2016-10-01 | Outpatient (CLI) | payer OTHER ==
[~2016-10-01] MED LIST changes: +BUPIVACAINE HCL 0.25% 10 ML VIAL As Ordered ONE; +BUPIVACAINE HCL 0.25% 30 ML VIAL As Ordered ONE; +TRIAMCINOLONE ACETONIDE SUSP 40 MG/ML VIAL (J3301) As Ordered ONE
--- NOTE | 2016-10-12 23:05 | ECWPNPC ---
PATIENT NAME: ZAKIA BLAKE : 1955 GENDER: FEMALE VISIT DATE: 10/01/2016 DISCHARGE DATE: 10/01/16945 VISIT LOCKED DATE TIME: PHYSICIAN: JAVAD VILLALOBOS RESOURCE: JAVAD VILLALOBOS REASON FOR APPOINTMENT 1. THOR AND LUM BAR HISTORY OF PRESENT ILLNESS HISTORY OF PRESENT ILLNESS: PAIN THE PATIENT DESCRIBES THE PAIN... FALL RISK SCREENING: SCREENING :NO FALLS IN THE PAST YEAR CURRENT MEDICATIONS TAKING BACLOFEN 10 MG TABLET 1 TAB ORALLY BID PRN FOR SPASMS AND PAIN, NOTES: 09/30/162099 TAKING CALCIUM 500 MG TABLET ORALLY DAILY, NOTES: 09/30/16599 TAKING BENADRYL 25 MG TABLET 1 TABLET NEEDED ORALLY EVERY 6 HRS, NOTES: NONE LATELY TAKING IBUPROFEN 800 MG TABLET 1 TABLET NEEDED ORALLY THREE TIMES A DAY, NOTES: TUESDAY TAKING SINGULAIR 10 MG TABLET 1 TABLET ORALLY ONCE A DAY, NOTES: 10/01/16599 TAKING VITAMIN D 1000 UNIT CAPSULE 1 CAPSULE ORALLY ONCE A DAY, NOTES: 09/30/16599 TAKING CRANBERRY TABLET 1 TAB ORALLY DAILY, NOTES: 09/30/16599 TAKING DESONIDE CREAM 1 APPLICATION TO AFFECTED AREA EXTERNALLY TWICE A DAY, NOTES: 10/01/16629 TAKING PATANOL SOLUTION 1 DROP INTO AFFECTED EYE OPHTHALMIC DIRECTED, NOTES: [address] [place] WORT TABLET 2 TABLET ORALLY ONCE A DAY, NOTES: 09/30/16599 NOT-TAKING BACLOFEN 10 MG TABLET 1 TAB ORALLY THREE TIMES A DAY MEDICATION LIST REVIEWED AND RECONCILED WITH THE PATIENT PAST MEDICAL HISTORY ASTHMA GERD DISCOID LUPUS ALLERGIES WHEAT: NAUSEA/VOMITING LACTOSE: NAUSEA/VOMITING: ALLERGY BANDAIDS: RASH: ALLERGY FLEXERIL: HIVES: ALLERGY ANTIBIOTIC: RASH: ALLERGY NITROFURANTOIN: RASH: ALLERGY SURGICAL HISTORY SPLENECTOMY CHOLECYSTECTOMY HYSTERECTOMY REVIEW OF SYSTEMS REVIEWED BY: PROVIDER: . CONSTITUTIONAL: ANY CHANGE IN YOUR MEDICAL CONDITION? NO . CHILLS NO . FEVER NO . INFECTION: DO YOU HAVE NEW INFECTIONS? NO . DO YOU HAVE HISTORY OF MRSA? NO . MUSCULOSKELETAL: ANY NEW PATTERNS OF PAIN OR NUMBNESS? NO . GASTROENTEROLOGY: ANY NEW CHANGE IN BOWEL CONTROL? NO . GENITOURINARY: ANY NEW CHANGE IN BLADDER CONTROL? NO . IS THERE A CHANCE YOU COULD BE ? NO . HEMATOLOGY/LYMPH: DO YOU TAKE ANY BLOOD THINNERS? (FOR EXAMPLE- COUMADIN, PLAVIX, AGGRENOX, PLATEL, PRADAXA, OR XARELTO) NO . WHEN WAS YOUR LAST DOSE? DATE: TIME: . NEUROLOGY: HAVE YOU FALLEN IN THE PAST 6 MONTHS? NO . ANY NEW EXTREMITY NUMBNESS OR WEAKNESS? NO . CARDIOLOGY: DO YOU HAVE A PACEMAKER OR DEFIBRILLATOR? NO . RESPIRATORY: HAVE YOU BEEN SICK IN THE PAST WEEK? NO . FEVER NO . FLU LIKE SYMPTOMS? NO . COUGH NO . INTEGUMENTARY: DO YOU HAVE ANY RASHES OR OPEN SORES? NO . ALLERGIC/IMMUNO: ARE YOU ALLERGIC TO SHELLFISH OR IV DYE? NO . ANY NEW ALLERGIES? NO . PSYCHIATRIC: DO YOU HAVE THOUGHTS OF HURTING YOURSELF OR SOMEONE ELSE? NO . ARE YOU ABUSED, NEGLECTED, OR IN AN UNSAFE ENVIRONMENT? NO . ENDOCRINOLOGY: ARE YOU DIABETIC? NO . OTHER: DO YOU NEED ANY PRESCRIPTIONS? NO . IF YES, PLEASE LIST: ____ . ANY NEW PROBLEMS WITH YOUR MEDICATIONS? NO . WHEN DID YOU LAST EAT? 09/30/16 1730 . WHEN DID YOU LAST DRINK? 10/01/16 0600A . WHAT DID YOU LAST DRINK? WATER . NAME OF PERSON DRIVING YOU HOME? CHARBEL HADLEY . DO YOU HAVE ANY OTHER QUESTIONS OR CONCERNS NO . VITAL SIGNS WT 158 LBS, HT 61 1/2, BMI 29.37 INDEX, BP 131/65 MM HG, HR 55 /MIN, RR 16 /MIN, TEMP 96.6 F, OXYGEN SAT % 97, SAFE IN ENV? (Y/N) Y, REVIEWED BY: EM. ASSESSMENTS MYALGIA - M79.1 (PRIMARY) PROCEDURES PN TRIGGER POINT INJECTION WITH STEROIDS PRE PROCEDURE DIAGNOSIS 1. MYALGIA 2. PAIN AT BILATERAL THORACIC AREA AND BILATERAL LOWER BACK AREA POST PROCEDURE DIAGNOSIS 1. MYALGIA 2. PAIN AT BILATERAL THORACIC AREA AND BILATERAL LOWER BACK AREA PROCEDURE TRIGGER POINT INJECTION AT BILATERAL THORACIC AREA AND BILATERAL LOWER BACK AREA SURGEON DR. JAVAD VILLALOBOS FRENCH WEAVER NONE ANESTHESIA LOCAL PRE PROCEDURE NOTE THE PATIENT HAS A HISTORY OF CHRONIC PAIN AT THE RIGHT AND LEFT THORACIC AREA AND RIGHT AND LEFT LOWER BACK AREA. I EVALUATE THE PATIENT AND REVIEWED THE CHART. THERE IS EVIDENCE OF BANDS OF TISSUE WITH RESTRICTION OF MOVEMENT AND PRESENCE OF TRIGGER POINT AT THE AFFECTED AREA. I WENT OVER THE RISKS, ALTERNATIVES, AND BENEFITS ASSOCIATED WITH THIS PROCEDURE. THE PATIENT WOULD LIKE TO PROCEED AND GIVE CONSENT TO PERFORMED THE PROCEDURE. THE PATIENT DENIES UNEXPLAINABLE WEIGHT LOSS, FEVER, CHILLS, OR NEW CHANGES IN URINARY OR BOWEL CONTROL DESCRIPTION OF PROCEDURE THE PATIENT WAS BROUGHT TO THE PROCEDURE ROOM AND PLACED IN THE SITTING POSITION. THE AREA WAS CLEANED WITH ALCOHOL. THE PROCEDURE WAS DONE USING ASEPTIC STERILE TECHNIQUE. I CHECKED LATERALITY AND THE LEVEL WHERE THE PROCEDURE WAS GOING TO BE PERFORMED WITH THE PATIENT AND THE SUPPORTING STAFF AT THE MOMENT OF THE TIME OUT IN THE PROCEDURE ROOM. USING A 25-GAUGE NEEDLE, TRIGGER POINTS WERE INJECTED AT THE RIGHT AND LEFT THORACIC AREA AND RIGHT AND LEFT LOWER BACK AREA WITH A TOTAL OF 40 ML OF BUPIVACAINE 0.25% AND KENALOG 40 MG. THERE WAS NO EVIDENCE OF BLOOD, PARESTHESIA OR CEREBROSPINAL FLUID DURING THE PROCEDURE. THE PATIENT WAS SENT TO THE RECOVERY ROOM. THE PATIENT WAS MOVING THE EXTREMITIES AND DOING WELL. THERE WAS NO COMPLICATION DURING THE PROCEDURE POST PROCEDURE NOTE THE PATIENT WILL BE SEEN IN A FOLLOW UP IN THE NEXT FEW WEEKS. INSTRUCTIONS WERE GIVEN, QUESTIONS WERE ANSWERED, AND THE PATIENT EXPRESSED UNDERSTANDING AND AGREES WITH THE PLAN. I, NEERAJ HEATON, DOCUMENTED THE ABOVE INFORMATION ACTING A SCRIBE FOR DR. VILLALOBOS. I HAVE REVIEWED THE ABOVE DOCUMENT, WRITTEN BY NEERAJ JESSICA AND I VERIFY THAT IT IS ACCURATE PN WORKMANS' COMP OPINION IN YOUR OPINION, WAS THE INCIDENT THAT THE PATIENT DESCRIBED THE COMPETENT MEDICAL CAUSE OF THIS INJURY/ILLNESS? YES ARE THE PATIENT'S COMPLAINTS CONSISTENT WITH HIS/HER HISTORY OF THE INJURY/ILLNESS? YES IS THE PATIENT'S HISTORY OF THE INJURY/ILLNESS CONSISTENT WITH YOUR OBJECTIVE FINDING? YES WHAT IS THE PERCENTAGE OF TEMPORARY IMPAIRMENT? MODERATE TO MARKED = 66.7% IS THE PATIENT WORKING? NO DOCTOR ON SITE: JAVAD HATHAWAY MD PROCEDURE CODES 36151 INJECT TRIGGER POINTS 3/> DISPOSITION & COMMUNICATION FOLLOW UP 3 WEEKS ELECTRONICALLY SIGNED BY JAVAD VILLALOBOS MD ON 10/12/2016 AT 08:49 PM EDT DISCLAIMER : THIS IS A VISIT SUMMARY EXTRACTED FROM THE [employer] CHART. IT IS NOT A COPY OF THE [employer] PROGRESS NOTE. SACHA
== END | disposition home or self-care (01) ==
LOC: M PAIN 08:30
PROVIDERS: ATTEND Anesthesiology
DX: G89.29 Other chronic pain (principal); M79.1 Myalgia; J45.909 Unspecified asthma, uncomplicated; K21.9 Gastro-esophageal reflux disease without esophagitis; L93.0 Discoid lupus erythematosus; Z79.899 Other long term (current) drug therapy; Z88.1 Allergy status to other antibiotic agents; Z88.8 Allergy status to other drugs, medicaments and biological substances; Z91.018 Allergy to other foods; E73.9 Lactose intolerance, unspecified; L23.1 Allergic contact dermatitis due to adhesives
CPT/HCPCS: 20553; J3301

== ENCOUNTER → 2016-10-22 | Outpatient (CLI) | payer OTHER ==
[~2016-10-22] MED LIST changes: -BUPIVACAINE HCL 0.25% 10 ML VIAL As Ordered ONE; -BUPIVACAINE HCL 0.25% 30 ML VIAL As Ordered ONE; -TRIAMCINOLONE ACETONIDE SUSP 40 MG/ML VIAL (J3301) As Ordered ONE
--- NOTE | 2016-11-04 00:40 | ECWPNPC ---
PATIENT NAME: ZAKIA BLAKE : 1955 GENDER: FEMALE VISIT DATE: 10/22/2016 DISCHARGE DATE: 10/22/16 1504 VISIT LOCKED DATE TIME: PHYSICIAN: JAVDA VILLALOBOS RESOURCE: JAVAD VILLALOBOS REASON FOR APPOINTMENT 1. THORACIC AND LOW BACK PAIN HISTORY OF PRESENT ILLNESS HISTORY OF PRESENT ILLNESS: PAIN THE PATIENT DESCRIBES THE PAIN... 61 YEAR OLD FEMALE PATIENT WITH HISTORY OF CHRONIC LOW BACK AND THORACIC PAIN. PATIENT DESCRIBES THE PAIN ACHING AND TENDER WITH THE PAIN COMING AND GOING WITH A CURRENT PAIN SCORE OF 2/10. PATIENT RECEIVED TRIGGER POINT INJECTIONS ON 10/01/16 AND REPORTS DOING VERY WELL FROM THE INJECTION. PATIENT STATES SHE HAS HAD OVER 50% RELIEF FROM THE INJECTION WITH AN INCREASE IN MOBILITY AND FUNCTIONALITY. PATIENT IS CURRENTLY USING BACLOFEN AND IBUPROFEN WHICH SHE HAS DECREASED IN USE SINCE THE INJECTION. PATIENT DENIES UNEXPLAINABLE WEIGHT LOSS, FEVER, CHILLS, NEW CHANGES ON HER URINARY OR BOWEL CONTROL. FALL RISK SCREENING: SCREENING :NO FALLS IN THE PAST YEAR CURRENT MEDICATIONS TAKING BACLOFEN 10 MG TABLET 1 TAB ORALLY BID PRN FOR SPASMS AND PAIN TAKING CALCIUM 500 MG TABLET ORALLY DAILY TAKING BENADRYL 25 MG TABLET 1 TABLET NEEDED ORALLY EVERY 6 HRS TAKING IBUPROFEN 800 MG TABLET 1 TABLET NEEDED ORALLY THREE TIMES A DAY TAKING SINGULAIR 10 MG TABLET 1 TABLET ORALLY ONCE A DAY TAKING VITAMIN D 1000 UNIT CAPSULE 1 CAPSULE ORALLY ONCE A DAY TAKING CRANBERRY TABLET 1 TAB ORALLY DAILY TAKING DESONIDE CREAM 1 APPLICATION TO AFFECTED AREA EXTERNALLY TWICE A DAY TAKING PATANOL SOLUTION 1 DROP INTO AFFECTED EYE OPHTHALMIC DIRECTED TAKING ST [place] WORT TABLET 2 TABLET ORALLY ONCE A DAY NOT-TAKING BACLOFEN 10 MG TABLET 1 TAB ORALLY THREE TIMES A DAY MEDICATION LIST REVIEWED AND RECONCILED WITH THE PATIENT PAST MEDICAL HISTORY ASTHMA GERD DISCOID LUPUS ALLERGIES WHEAT: NAUSEA/VOMITING LACTOSE: NAUSEA/VOMITING: ALLERGY BANDAIDS: RASH: ALLERGY FLEXERIL: HIVES: ALLERGY ANTIBIOTIC: RASH: ALLERGY NITROFURANTOIN: RASH: ALLERGY REVIEW OF SYSTEMS REVIEWED BY: PROVIDER: JAVAD VILLALOBOS MD . CONSTITUTIONAL: ANY CHANGE IN YOUR MEDICAL CONDITION? NO . CHILLS NO . FEVER NO . INFECTION: DO YOU HAVE NEW INFECTIONS? NO . DO YOU HAVE HISTORY OF MRSA? NO . MUSCULOSKELETAL: ANY NEW PATTERNS OF PAIN OR NUMBNESS? NO . GASTROENTEROLOGY: ANY NEW CHANGE IN BOWEL CONTROL? NO . GENITOURINARY: ANY NEW CHANGE IN BLADDER CONTROL? NO . IS THERE A CHANCE YOU COULD BE ? NO . HEMATOLOGY/LYMPH: DO YOU TAKE ANY BLOOD THINNERS? (FOR EXAMPLE- COUMADIN, PLAVIX, AGGRENOX, PLATEL, PRADAXA, OR XARELTO) NO . WHEN WAS YOUR LAST DOSE? DATE: TIME: . NEUROLOGY: HAVE YOU FALLEN IN THE PAST 6 MONTHS? NO . ANY NEW EXTREMITY NUMBNESS OR WEAKNESS? NO . CARDIOLOGY: DO YOU HAVE A PACEMAKER OR DEFIBRILLATOR? NO . RESPIRATORY: HAVE YOU BEEN SICK IN THE PAST WEEK? NO . FEVER NO . FLU LIKE SYMPTOMS? NO . COUGH YES . INTEGUMENTARY: DO YOU HAVE ANY RASHES OR OPEN SORES? NO . ALLERGIC/IMMUNO: ARE YOU ALLERGIC TO SHELLFISH OR IV DYE? NO . ANY NEW ALLERGIES? NO . PSYCHIATRIC: DO YOU HAVE THOUGHTS OF HURTING YOURSELF OR SOMEONE ELSE? NO . ARE YOU ABUSED, NEGLECTED, OR IN AN UNSAFE ENVIRONMENT? NO . ENDOCRINOLOGY: ARE YOU DIABETIC? NO . OTHER: DO YOU NEED ANY PRESCRIPTIONS? NO . IF YES, PLEASE LIST: ____ . ANY NEW PROBLEMS WITH YOUR MEDICATIONS? NO . WHEN DID YOU LAST EAT? ____ . WHEN DID YOU LAST DRINK? ____ . WHAT DID YOU LAST DRINK? ____ . NAME OF PERSON DRIVING YOU HOME? ____ . DO YOU HAVE ANY OTHER QUESTIONS OR CONCERNS NO . VITAL SIGNS WT 157.0 LBS, HT 61 1/2, BMI 29.18 INDEX, BP 140/67 MM HG, HR 81 /MIN, RR 16 /MIN, TEMP 97.7 F, OXYGEN SAT % 96%, NA INITIALS TL 1428, REVIEWED BY: CM. EXAMINATION : PATIENT IS ALERT O X 3 AND COOPERATIVE. THERE IS TENDERNESS IN THE LOW BACK AND MID BACK WITH BANDS OF TISSUES, RESTRICTION OF MOVEMENT, AND PRESENCE OF TRIGGER POINTS. MRI OF THE LUMBAR SPINE DONE ON 10/17/2012 SHOWS DISC BULGING AT L4-L5. ASSESSMENTS MYALGIA - M79.1 (PRIMARY) INTERVERTEBRAL DISC DISORDERS WITH RADICULOPATHY, LUMBAR REGION - M51.16 INTERVERTEBRAL DISC DISORDERS WITH RADICULOPATHY, LUMBOSACRAL REGION - M51.17 TREATMENT MYALGIA NOTES: WE DISCUSSED SEVERAL ISSUES WITH MRS. BLAKE'S PAIN MANAGEMENT CASE. AT THIS TIME THE PATIENT WILL CONTINUE WITH THE SAME MEDICATION REGIME BEFORE. PATIENT IS USING BACLOFEN FOR THE MUSCLE SPASMS AND IBUPROFEN FOR THE INFLAMMATION. PATIENT IS DOING VERY WELL FROM THE TRIGGER POINT INJECTION DONE ONE 10/01/16 AND REPORTS SHE DOES NOT NEED ANY INTERVENTIONS AT THIS TIME. PATIENT STATES SHE HAS DECREASED THE USE OF MEDICATION DUE TO THE PAIN RELIEF. PATIENT WILL RETURN TO THE CLINIC IN 2 MONTHS. INSTRUCTIONS WERE GIVEN, QUESTIONS WERE ANSWERED, PATIENT REPORTS UNDERSTANDING AND AGREES WITH THE PLAN. I, NEERAJ HEATON, DOCUMENTED THE ABOVE INFORMATION ACTING A SCRIBE FOR DR. VILLALOBOS. I HAVE REVIEWED THE ABOVE DOCUMENT, WRITTEN BY NEERAJ SANDYIBArchana AND I VERIFY THAT IT IS ACCURATE. OTHERS REFILL BACLOFEN TABLET, 10 MG, 1 TAB, ORALLY, BID PRN FOR SPASMS AND PAIN, 30 DAY(S), 60, REFILLS 2, NOTES: 09/30/16 2100 PROCEDURES PN WORKMANS' COMP OPINION IN YOUR OPINION, WAS THE INCIDENT THAT THE PATIENT DESCRIBED THE COMPETENT MEDICAL CAUSE OF THIS INJURY/ILLNESS? YES ARE THE PATIENT'S COMPLAINTS CONSISTENT WITH HIS/HER HISTORY OF THE INJURY/ILLNESS? YES IS THE PATIENT'S HISTORY OF THE INJURY/ILLNESS CONSISTENT WITH YOUR OBJECTIVE FINDING? YES WHAT IS THE PERCENTAGE OF TEMPORARY IMPAIRMENT? MODERATE TO MARKED = 66.7% IS THE PATIENT WORKING? NO DOCTOR ON SITE: JAVAD HATHAWAY MD PROCEDURE CODES FA211 ESTABILISHED PATIENT [facility] FACILITY CHARGE G8427 DOC MEDS VERIFIED W/PT OR RE G8730 PAIN ASSESS POS TOOL F/U PLAN DOC DISPOSITION & COMMUNICATION FOLLOW UP 6 WEEKS ELECTRONICALLY SIGNED BY JAVAD VILLALOBOS MD ON 11/03/2016 AT 08:38 PM EDT DISCLAIMER : THIS IS A VISIT SUMMARY EXTRACTED FROM THE [employer] CHART. IT IS NOT A COPY OF THE [employer] PROGRESS NOTE. SACHA
== END | disposition home or self-care (01) ==
LOC: M PAIN 14:20
PROVIDERS: ATTEND Anesthesiology
DX: G89.29 Other chronic pain (principal); M79.1 Myalgia; M51.16 Intervertebral disc disorders with radiculopathy, lumbar region; M51.17 Intervertebral disc disorders with radiculopathy, lumbosacral region; J45.909 Unspecified asthma, uncomplicated; K21.9 Gastro-esophageal reflux disease without esophagitis; L93.0 Discoid lupus erythematosus; Z79.899 Other long term (current) drug therapy; Z91.018 Allergy to other foods; Z88.1 Allergy status to other antibiotic agents; Z88.8 Allergy status to other drugs, medicaments and biological substances

== ENCOUNTER → 2017-01-07 | Outpatient (CLI) | payer OTHER ==
--- NOTE | 2017-01-27 00:45 | ECWPNPC ---
PATIENT NAME: ZAKIA BLAKE : 1955 GENDER: FEMALE VISIT DATE: 01/07/2017 DISCHARGE DATE: 01/07/17 1419 VISIT LOCKED DATE TIME: PHYSICIAN: KEN CASTELLANO RESOURCE: KEN CASTELLANO REASON FOR APPOINTMENT 1. MEDS HISTORY OF PRESENT ILLNESS HISTORY OF PRESENT ILLNESS: HERE FOR POST PROCEDURE F/U.HAD TPI 623-16 OF LUMBAR SPINE. REPORTED >75 % IMPROVEMENT IN PAIN FOR ONE MOS. THEN PAIN HAS GRADUALLY INCREASED.CHIEF AREA OF PAIN IS LEFT LOW BACK W RADIATION INTO LEFT THIGH. WE ARE TREATING CHRONIC PAIN ASSOCIATED W WORK RELATED INJURRY 1998.USING BACLOFEN 10MG PRN AND IBUPROFEN FOR SEVERE INTENSE PAIN WITH GOOD EFFECT.WORSE AREA OF PAIN IS THORACIC AND LUMBAR SPINE.RATING PAIN VAS 3/10. PAIN THE PATIENT DESCRIBES THE PAIN... THE PATIENT DESCRIBES THE PAIN... THE PATIENT DESCRIBES THE PAIN... FALL RISK SCREENING: SCREENING :NO FALLS IN THE PAST YEAR CURRENT MEDICATIONS TAKING BACLOFEN 10 MG TABLET 1 TAB ORALLY BID PRN FOR SPASMS AND PAIN, NOTES: 09/30/16 2100 TAKING CALCIUM 500 MG TABLET ORALLY DAILY TAKING BENADRYL 25 MG TABLET 1 TABLET NEEDED ORALLY EVERY 6 HRS TAKING IBUPROFEN 800 MG TABLET 1 TABLET NEEDED ORALLY THREE TIMES A DAY TAKING SINGULAIR 10 MG TABLET 1 TABLET ORALLY ONCE A DAY TAKING VITAMIN D 1000 UNIT CAPSULE 1 CAPSULE ORALLY ONCE A DAY TAKING DESONIDE CREAM 1 APPLICATION TO AFFECTED AREA EXTERNALLY TWICE A DAY TAKING PATANOL SOLUTION 1 DROP INTO AFFECTED EYE OPHTHALMIC DIRECTED TAKING ST [place] WORT TABLET 2 TABLET ORALLY ONCE A DAY NOT-TAKING CRANBERRY TABLET 1 TAB ORALLY DAILY NOT-TAKING BACLOFEN 10 MG TABLET 1 TAB ORALLY THREE TIMES A DAY MEDICATION LIST REVIEWED AND RECONCILED WITH THE PATIENT PAST MEDICAL HISTORY ASTHMA GERD DISCOID LUPUS ALLERGIES WHEAT: NAUSEA/VOMITING LACTOSE: NAUSEA/VOMITING: ALLERGY BANDAIDS: RASH: ALLERGY FLEXERIL: HIVES: ALLERGY NITROFURANTOIN: RASH: ALLERGY SOCIAL HISTORY GENERAL: TOBACCO USE ARE YOU A:NONSMOKER ADDITIONAL FINDINGS: TOBACCO [id number] FOR PERSONAL REASONS LEARNING BARRIERS / SPECIAL NEEDS ORIENTED TO PLAN OF CARE: PATIENT, PAIN MANAGEMENT PATIENT, ORIENTED TO PLAN OF CARE: PATIENT, PAIN MANAGEMENT PATIENT. NEW PATIENT PAIN DIARY TODAY'S VISIT NOTES, FROM 0-10, WHAT LEVEL IS YOUR PAIN TODAY? 0. PAIN CLINIC PFS, CLERGY, PUBLIC HEALTH REFERRALS PFS REFERRAL NEEDED?NO CLERGY REFERRAL NEEDED?NO PUBLIC HEALTH REFERRAL NEEDED?NO WAS THE PROVIDER NOTIFIED OF ANY PERTINENT INFO?YES HAS THE PATIENT BEEN EDUCATED REGARDING HIS/HER PLAN OF CARE?YES HAS THE PATIENT BEEN EDUCATED REGARDING PAIN, THE RISK FOR PAIN, THE IMPORTANCE OF EFFECTIVE PAIN MANAGEMENT, AND THE PAIN ASSESSMENT PROCESS?YES REVIEW OF SYSTEMS REVIEWED BY: PROVIDER: KEN LEO . CONSTITUTIONAL: ANY CHANGE IN YOUR MEDICAL CONDITION? NO . CHILLS NO . FEVER NO . INFECTION: DO YOU HAVE NEW INFECTIONS? NO . DO YOU HAVE HISTORY OF MRSA? NO . MUSCULOSKELETAL: ANY NEW PATTERNS OF PAIN OR NUMBNESS? NO . GASTROENTEROLOGY: ANY NEW CHANGE IN BOWEL CONTROL? NO . GENITOURINARY: ANY NEW CHANGE IN BLADDER CONTROL? NO . IS THERE A CHANCE YOU COULD BE ? NO . HEMATOLOGY/LYMPH: DO YOU TAKE ANY BLOOD THINNERS? (FOR EXAMPLE- COUMADIN, PLAVIX, AGGRENOX, PLATEL, PRADAXA, OR XARELTO) NO . WHEN WAS YOUR LAST DOSE? DATE: TIME: . NEUROLOGY: HAVE YOU FALLEN IN THE PAST 6 MONTHS? NO . ANY NEW EXTREMITY NUMBNESS OR WEAKNESS? NO . CARDIOLOGY: DO YOU HAVE A PACEMAKER OR DEFIBRILLATOR? NO . RESPIRATORY: HAVE YOU BEEN SICK IN THE PAST WEEK? NO . FEVER NO . FLU LIKE SYMPTOMS? NO . COUGH NO . INTEGUMENTARY: DO YOU HAVE ANY RASHES OR OPEN SORES? NO . ALLERGIC/IMMUNO: ARE YOU ALLERGIC TO SHELLFISH OR IV DYE? NO . ANY NEW ALLERGIES? NO . PSYCHIATRIC: DO YOU HAVE THOUGHTS OF HURTING YOURSELF OR SOMEONE ELSE? NO . ARE YOU ABUSED, NEGLECTED, OR IN AN UNSAFE ENVIRONMENT? NO . ENDOCRINOLOGY: ARE YOU DIABETIC? NO . OTHER: DO YOU NEED ANY PRESCRIPTIONS? NO . IF YES, PLEASE LIST: ____ . ANY NEW PROBLEMS WITH YOUR MEDICATIONS? NO . WHEN DID YOU LAST EAT? ____ . WHEN DID YOU LAST DRINK? ____ . WHAT DID YOU LAST DRINK? ____ . NAME OF PERSON DRIVING YOU HOME? ____ . DO YOU HAVE ANY OTHER QUESTIONS OR CONCERNS NO . VITAL SIGNS WT 154 LBS, HT 61 1/2, BMI 28.62 INDEX, BP 115/62 MM HG, HR 74 /MIN, RR 16 /MIN, TEMP 98.9 F, OXYGEN SAT % 97%, SAFE IN ENV? (Y/N) Y, REVIEWED BY: EILEEN. EXAMINATION GENERAL EXAMINATION: LUNGS:LUNG SOUNDS ARE CLEAR . HEART:HEART RATE REGULAR . MUSCULOSKELETAL:*, MUSCLE STRENGTH TESTING 5/5 BILATERAL, PALPATION: POSITIVE FOR PAIN OVER L/S SPINE. POSITIVE FOR PAIN OVER L/S PARSPINALS, TRIGGER POINTS:, ELICITED WITH PALPATION OVER MID THORACIC MUSCLES .TRIGGER POINTS , ELICITED WITH PALPATION OVER LUMBAR PARAVERTEBRAL MUSCLES . . ASSESSMENTS CHRONIC BILATERAL LOW BACK PAIN WITHOUT SCIATICA - M54.5 (PRIMARY) CHRONIC BILATERAL THORACIC BACK PAIN - M54.6 TREATMENT CHRONIC BILATERAL LOW BACK PAIN WITHOUT SCIATICA NOTES: W/C REQUEST TPI-THORACIC/LUMBAR. PROCEDURES PN WORKMANS' COMP OPINION IN YOUR OPINION, WAS THE INCIDENT THAT THE PATIENT DESCRIBED THE COMPETENT MEDICAL CAUSE OF THIS INJURY/ILLNESS? YES IN YOUR OPINION, WAS THE INCIDENT THAT THE PATIENT DESCRIBED THE COMPETENT MEDICAL CAUSE OF THIS INJURY/ILLNESS? YES ARE THE PATIENT'S COMPLAINTS CONSISTENT WITH HIS/HER HISTORY OF THE INJURY/ILLNESS? YES ARE THE PATIENT'S COMPLAINTS CONSISTENT WITH HIS/HER HISTORY OF THE INJURY/ILLNESS? YES IS THE PATIENT'S HISTORY OF THE INJURY/ILLNESS CONSISTENT WITH YOUR OBJECTIVE FINDING? YES IS THE PATIENT'S HISTORY OF THE INJURY/ILLNESS CONSISTENT WITH YOUR OBJECTIVE FINDING? YES WHAT IS THE PERCENTAGE OF TEMPORARY IMPAIRMENT? MODERATE TO MARKED = 66.7% , MODERATE TO MARKED = 66.7% WHAT IS THE PERCENTAGE OF TEMPORARY IMPAIRMENT? MODERATE TO MARKED = 66.7% , MODERATE TO MARKED = 66.7% IS THE PATIENT WORKING? NO , NO IS THE PATIENT WORKING? NO , NO DOCTOR ON SITE: JAVAD HATHAWAY MD DOCTOR ON SITE: JAVAD HATHAWAY MD PROCEDURE CODES FA211 ESTABILISHED PATIENT [facility] CHARGE DISPOSITION & COMMUNICATION FOLLOW UP 2WK POST (REASON: W/C REQUEST TPI-THORACIC/LUMBAR) ELECTRONICALLY SIGNED BY FELIPA HARRISON ON 01/26/2017 AT 07:52 PM EDT DISCLAIMER : THIS IS A VISIT SUMMARY EXTRACTED FROM THE [employer] CHART. IT IS NOT A COPY OF THE [employer] PROGRESS NOTE. SACHA
== END ==
LOC: M PAIN 13:45
PROVIDERS: ATTEND Nurse Practitioner Family
DX: M54.5 Low back pain (principal); M54.6 Pain in thoracic spine; G89.29 Other chronic pain; Z79.899 Other long term (current) drug therapy

== ENCOUNTER → 2017-02-24 | Outpatient (CLI) | payer OTHER ==
--- NOTE | 2017-03-15 00:45 | ECWPNPC ---
PATIENT NAME: ZAKIA BLAKE : 1955 GENDER: FEMALE VISIT DATE: 02/24/2017 DISCHARGE DATE: 02/24/17921 VISIT LOCKED DATE TIME: PHYSICIAN: JAVAD VILLALOBOS RESOURCE: JAVAD VILLALOBOS REASON FOR APPOINTMENT 1. BACK PAIN W/C HISTORY OF PRESENT ILLNESS HISTORY OF PRESENT ILLNESS: PAIN THE PATIENT DESCRIBES THE PAIN... 61 YEAR OLD FEMALE PATIENT WITH HISTORY OF CHRONIC THORACIC AND LOW BACK PAIN. PATIENT DESCRIBES THE PAIN ACHING, SHARP, TENDER, THROBBING, SHOOTING, AND HAVING IT ALL THE TIME WITH A PAIN SCORE OF 6/10. PATIENT WAS HURT IN A WORK RELATED INJURY ON 07/28/1998 WHILE WORKING AT [employer]. PATIENT RECEIVED A TRIGGER POINT INJECTION ON 10/01/16 AND REPORTS HAVING 4 MONTHS OF OVER 50% RELIEF FROM THE PAIN WITH INCREASED MOBILITY AND FUNCTIONALITY BUT THE PAIN IS STARTING TO RETURN AT THIS TIME. PATIENT REPORTS IT WAS EASIER TO DO THINGS ABOUT THE HOUSE SUCH CLEANING, DISHES, AND SWEEPING. CURRENTLY THE PATIENT IS USING IBUPROFEN AND BACLOFEN FOR PAIN MANAGEMENT AND STATES THAT THE MEDICATION AIDS IN PAIN RELIEF AT THIS TIME. PATIENT DENIES UNEXPLAINABLE WEIGHT LOSS, FEVER, CHILLS, NEW CHANGES ON HER URINARY OR BOWEL CONTROL. FALL RISK SCREENING: SCREENING :NO FALLS IN THE PAST YEAR CURRENT MEDICATIONS TAKING BACLOFEN 10 MG TABLET 1 TAB ORALLY BID PRN FOR SPASMS AND PAIN, NOTES: 09/30/16 2100 TAKING CALCIUM 500 MG TABLET ORALLY DAILY TAKING BENADRYL 25 MG TABLET 1 TABLET NEEDED ORALLY EVERY 6 HRS TAKING IBUPROFEN 800 MG TABLET 1 TABLET NEEDED ORALLY THREE TIMES A DAY TAKING SINGULAIR 10 MG TABLET 1 TABLET ORALLY ONCE A DAY TAKING VITAMIN D 1000 UNIT CAPSULE 1 CAPSULE ORALLY ONCE A DAY TAKING DESONIDE CREAM 1 APPLICATION TO AFFECTED AREA EXTERNALLY TWICE A DAY TAKING PATANOL SOLUTION 1 DROP INTO AFFECTED EYE OPHTHALMIC DIRECTED TAKING ST [place] WORT TABLET 2 TABLET ORALLY ONCE A DAY DISCONTINUED CRANBERRY TABLET 1 TAB ORALLY DAILY DISCONTINUED BACLOFEN 10 MG TABLET 1 TAB ORALLY THREE TIMES A DAY MEDICATION LIST REVIEWED AND RECONCILED WITH THE PATIENT PAST MEDICAL HISTORY ASTHMA GERD DISCOID LUPUS ALLERGIES WHEAT: NAUSEA/VOMITING LACTOSE: NAUSEA/VOMITING: ALLERGY BANDAIDS: RASH: ALLERGY FLEXERIL: HIVES: ALLERGY NITROFURANTOIN: RASH: ALLERGY SOCIAL HISTORY GENERAL: TOBACCO USE ARE YOU A:NONSMOKER ADDITIONAL FINDINGS: TOBACCO [id number] FOR PERSONAL REASONS LEARNING BARRIERS / SPECIAL NEEDS ORIENTED TO PLAN OF CARE: PATIENT, PAIN MANAGEMENT PATIENT, ORIENTED TO PLAN OF CARE: PATIENT, PAIN MANAGEMENT PATIENT. NEW PATIENT PAIN DIARY TODAY'S VISIT NOTES, FROM 0-10, WHAT LEVEL IS YOUR PAIN TODAY? 0. PAIN CLINIC PFS, CLERGY, PUBLIC HEALTH REFERRALS PFS REFERRAL NEEDED?NO CLERGY REFERRAL NEEDED?NO PUBLIC HEALTH REFERRAL NEEDED?NO WAS THE PROVIDER NOTIFIED OF ANY PERTINENT INFO?YES HAS THE PATIENT BEEN EDUCATED REGARDING HIS/HER PLAN OF CARE?YES HAS THE PATIENT BEEN EDUCATED REGARDING PAIN, THE RISK FOR PAIN, THE IMPORTANCE OF EFFECTIVE PAIN MANAGEMENT, AND THE PAIN ASSESSMENT PROCESS?YES REVIEW OF SYSTEMS REVIEWED BY: PROVIDER: JAVAD VILLALOBOS MD . CONSTITUTIONAL: ANY CHANGE IN YOUR MEDICAL CONDITION? NO . CHILLS NO . FEVER NO . INFECTION: DO YOU HAVE NEW INFECTIONS? NO . DO YOU HAVE HISTORY OF MRSA? NO . MUSCULOSKELETAL: ANY NEW PATTERNS OF PAIN OR NUMBNESS? NO . GASTROENTEROLOGY: ANY NEW CHANGE IN BOWEL CONTROL? NO . GENITOURINARY: ANY NEW CHANGE IN BLADDER CONTROL? YES . IS THERE A CHANCE YOU COULD BE ? NO . HEMATOLOGY/LYMPH: DO YOU TAKE ANY BLOOD THINNERS? (FOR EXAMPLE- COUMADIN, PLAVIX, AGGRENOX, PLATEL, PRADAXA, OR XARELTO) NO . WHEN WAS YOUR LAST DOSE? DATE: TIME: . NEUROLOGY: HAVE YOU FALLEN IN THE PAST 6 MONTHS? NO . ANY NEW EXTREMITY NUMBNESS OR WEAKNESS? NO . CARDIOLOGY: DO YOU HAVE A PACEMAKER OR DEFIBRILLATOR? NO . RESPIRATORY: HAVE YOU BEEN SICK IN THE PAST WEEK? NO . FEVER NO . FLU LIKE SYMPTOMS? NO . COUGH NO . INTEGUMENTARY: DO YOU HAVE ANY RASHES OR OPEN SORES? NO . ALLERGIC/IMMUNO: ARE YOU ALLERGIC TO SHELLFISH OR IV DYE? NO . ANY NEW ALLERGIES? NO . PSYCHIATRIC: DO YOU HAVE THOUGHTS OF HURTING YOURSELF OR SOMEONE ELSE? NO . ARE YOU ABUSED, NEGLECTED, OR IN AN UNSAFE ENVIRONMENT? NO . ENDOCRINOLOGY: ARE YOU DIABETIC? NO . OTHER: DO YOU NEED ANY PRESCRIPTIONS? NO . IF YES, PLEASE LIST: ____ . ANY NEW PROBLEMS WITH YOUR MEDICATIONS? NO . WHEN DID YOU LAST EAT? ____ . WHEN DID YOU LAST DRINK? ____ . WHAT DID YOU LAST DRINK? ____ . NAME OF PERSON DRIVING YOU HOME? ____ . DO YOU HAVE ANY OTHER QUESTIONS OR CONCERNS NO . VITAL SIGNS WT 157.0 LBS, HT 61 1/2, BMI 29.18 INDEX, BP 128/65 MM HG, HR 77 /MIN, RR 16 /MIN, TEMP 97.2 F, OXYGEN SAT % 96%, SAFE IN ENV? (Y/N) YES, NA INITIALS TL 1537, REVIEWED BY: ALEJANDRA. EXAMINATION : PATIENT IS ALERT O X 3 AND COOPERATIVE. THERE IS TENDERNESS IN THE LOW BACK AND MID BACK WITH BANDS OF TISSUES, RESTRICTION OF MOVEMENT, AND PRESENCE OF TRIGGER POINTS. PATIENT ABLE TO BEND TO 30 DEGREES AND FLEX 5 DEGREES WITH DISCOMFORT. MRI OF THE LUMBAR SPINE DONE ON 10/17/2012 SHOWS DISC BULGING AT L4-L5. 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 BLAKE'S PAIN MANAGEMENT CASE. AT THIS TIME THE PATIENT WILL CONTINUE TO USE THE BACLOFEN FOR MUSCLE SPASMS AND IBUPROFEN FOR INFLAMMATION. PATIENT WAS REMINDED TO USE THE IBUPROFEN WITH FOOD TO AVOID GASTROINTESTINAL ISSUES. DUE TO THE PATIENT HAVING LONG LASTING RELIEF FROM THE TRIGGER POINT INJECTION I WOULD LIEK TO REPEAT THE INJECTION. PATIENT HAS OVER 4 MONTHS OF OVER 50% RELIEF FROM THE INJECTION WITH INCREASED MOBILITY AND FUNCTIONALITY AND WAS ABLE TO REDUCE THE USE OF MEDICATION DURING THAT TIME. WE DISCUSSED THE RISKS, BENENFITS, AND ALTNERATIVES OF THE INJECTION AND THE PATIENT WOULD LIKE TO PROCEED. INSTRUCTIONS WERE GIVEN, QUESTIONS WERE ANSWERED, PATIENT REPORTS UNDERSTANDING AND AGREES WITH THE PLAN. I, NEERAJ HEATON, DOCUMENTED THE ABOVE INFORMATION ACTING A SCRIBE FOR DR. VILLALOBOS. I HAVE REVIEWED THE ABOVE DOCUMENT, WRITTEN BY NEERAJ JESSICA AND I VERIFY THAT IT IS ACCURATE. PROCEDURE CODES G8427 DOC MEDS VERIFIED W/PT OR RE G8730 PAIN ASSESS POS TOOL F/U PLAN DOC DISPOSITION & COMMUNICATION FOLLOW UP TPI AFTER APPROVAL ELECTRONICALLY SIGNED BY JAVAD VILLALOBOS MD ON 03/14/2017 AT 06:34 PM EST DISCLAIMER : THIS IS A VISIT SUMMARY EXTRACTED FROM THE [employer] CHART. IT IS NOT A COPY OF THE [employer] PROGRESS NOTE. MTDD
== END ==
LOC: M PAIN 15:00
PROVIDERS: ATTEND Anesthesiology
DX: M79.1 Myalgia (principal); M51.17 Intervertebral disc disorders with radiculopathy, lumbosacral region; M51.16 Intervertebral disc disorders with radiculopathy, lumbar region; G89.29 Other chronic pain; Z79.899 Other long term (current) drug therapy; Z88.8 Allergy status to other drugs, medicaments and biological substances; Z91.018 Allergy to other foods; Z91.011 Allergy to milk products; Z91.048 Other nonmedicinal substance allergy status

== ENCOUNTER → 2017-03-30 | Outpatient (CLI) | payer OTHER | LOC: M PAIN 14:45 | DX: G89.29 Other chronic pain (principal); M51.16 Intervertebral disc disorders with radiculopathy, lumbar region; M51.17 Intervertebral disc disorders with radiculopathy, lumbosacral region; M79.1 Myalgia; J45.909 Unspecified asthma, uncomplicated; L23.1 Allergic contact dermatitis due to adhesives; Z88.8 Allergy status to other drugs, medicaments and biological substances; Z91.011 Allergy to milk products; Z91.018 Allergy to other foods; Z79.1 Long term (current) use of non-steroidal anti-inflammatories (NSAID); Z79.899 Other long term (current) drug therapy | CPT/HCPCS: G0463 ==

== ENCOUNTER → 2017-04-22 | Outpatient (CLI) | payer OTHER ==
[~2017-04-22] MED LIST changes: -ALLE25CA OR; -BACL10TA2 PO; +BUPIVACAINE HCL 0.25% 10 ML VIAL As Ordered; +BUPIVACAINE HCL 0.25% 30 ML VIAL As Ordered; -CALC500T49 OR; -CARI350T; -CRANBERRY TABLETS PO; -DESONIDE TOP; -IBUP800T OR; -IBUP80TA PO; -LIDO5DIS; -LIDO5DIS TD; -Nasonex; -Omega 3 PO; -RED RICE YEAST; -SING10TA31 PO; -SING10TA32 PO; -SOMA250T; -THERGRAN; +TRIAMCINOLONE ACETONIDE SUSP 40 MG/ML VIAL (J3301) As Ordered; -VIT D 2000 PO; -[UNRECOGNIZED DRUG - OTHER]; -[UNRECOGNIZED DRUG - OTHER] PO; -patanol OU
== END ==
LOC: M PAIN 10:20
DX: G89.29 Other chronic pain (principal); M54.6 Pain in thoracic spine; M54.5 Low back pain; M79.1 Myalgia; L93.0 Discoid lupus erythematosus; E73.9 Lactose intolerance, unspecified; Z88.8 Allergy status to other drugs, medicaments and biological substances; Z91.048 Other nonmedicinal substance allergy status; Z91.018 Allergy to other foods; Z79.899 Other long term (current) drug therapy
CPT/HCPCS: J3301

== ENCOUNTER → 2017-05-13 | Outpatient (CLI) | payer OTHER | LOC: M PAIN 10:15 | DX: M54.5 Low back pain (principal); M54.6 Pain in thoracic spine; J45.909 Unspecified asthma, uncomplicated; L93.0 Discoid lupus erythematosus; E73.9 Lactose intolerance, unspecified; Z79.899 Other long term (current) drug therapy; Z88.8 Allergy status to other drugs, medicaments and biological substances; Z91.018 Allergy to other foods; Z91.048 Other nonmedicinal substance allergy status | CPT/HCPCS: G0463 ==

== ENCOUNTER → 2017-07-15 | Outpatient (CLI) | payer OTHER | LOC: M PAIN 10:30 | DX: M54.5 Low back pain (principal); M54.6 Pain in thoracic spine; J45.909 Unspecified asthma, uncomplicated; M32.9 Systemic lupus erythematosus, unspecified; E73.9 Lactose intolerance, unspecified; Z88.8 Allergy status to other drugs, medicaments and biological substances; Z91.018 Allergy to other foods; Z91.09 Other allergy status, other than to drugs and biological substances | CPT/HCPCS: G0463 ==

== ENCOUNTER → 2017-09-12 | Outpatient (CLI) | payer OTHER | LOC: M PAIN 11:00 | DX: M54.5 Low back pain (principal); M54.6 Pain in thoracic spine; G89.29 Other chronic pain; J45.909 Unspecified asthma, uncomplicated; L93.0 Discoid lupus erythematosus; E73.9 Lactose intolerance, unspecified; Z79.899 Other long term (current) drug therapy; Z88.2 Allergy status to sulfonamides; Z88.8 Allergy status to other drugs, medicaments and biological substances; Z91.09 Other allergy status, other than to drugs and biological substances; Z91.018 Allergy to other foods | CPT/HCPCS: G0463 ==

== ENCOUNTER → 2017-10-05 | Outpatient (CLI) | payer OTHER | LOC: M PAIN 12:45 | DX: G89.29 Other chronic pain (principal); M79.1 Myalgia; K21.9 Gastro-esophageal reflux disease without esophagitis; J45.909 Unspecified asthma, uncomplicated; Z79.899 Other long term (current) drug therapy; Z88.8 Allergy status to other drugs, medicaments and biological substances; Z91.018 Allergy to other foods; Z91.048 Other nonmedicinal substance allergy status; Z91.011 Allergy to milk products | CPT/HCPCS: J3301 ==

== ENCOUNTER → 2017-10-21 | Outpatient (CLI) | payer OTHER | LOC: M PAIN 08:30 | DX: M54.5 Low back pain (principal); M54.6 Pain in thoracic spine; J45.909 Unspecified asthma, uncomplicated; K29.70 Gastritis, unspecified, without bleeding; Z79.899 Other long term (current) drug therapy; Z88.2 Allergy status to sulfonamides; Z88.3 Allergy status to other anti-infective agents; Z88.8 Allergy status to other drugs, medicaments and biological substances; Z91.018 Allergy to other foods; Z90.49 Acquired absence of other specified parts of digestive tract; Z90.710 Acquired absence of both cervix and uterus | CPT/HCPCS: G0463 ==

== ENCOUNTER → 2018-01-13 | Outpatient (CLI) | payer OTHER | LOC: M PAIN 09:15 | DX: M54.5 Low back pain (principal); M54.6 Pain in thoracic spine; J45.909 Unspecified asthma, uncomplicated; K21.9 Gastro-esophageal reflux disease without esophagitis; F44.9 Dissociative and conversion disorder, unspecified; L93.0 Discoid lupus erythematosus; Z79.899 Other long term (current) drug therapy; Z88.2 Allergy status to sulfonamides; Z88.8 Allergy status to other drugs, medicaments and biological substances; Z91.048 Other nonmedicinal substance allergy status | CPT/HCPCS: G0463 ==

== ENCOUNTER → 2018-02-28 | Outpatient (CLI) | payer OTHER | LOC: M PAIN 10:00 | DX: M79.18 Myalgia, other site (principal); J45.909 Unspecified asthma, uncomplicated; K21.9 Gastro-esophageal reflux disease without esophagitis; L93.0 Discoid lupus erythematosus; K51.90 Ulcerative colitis, unspecified, without complications; K44.9 Diaphragmatic hernia without obstruction or gangrene; K29.70 Gastritis, unspecified, without bleeding; K57.92 Diverticulitis of intestine, part unspecified, without perforation or abscess without bleeding; Z90.49 Acquired absence of other specified parts of digestive tract; Z90.710 Acquired absence of both cervix and uterus; Z79.899 Other long term (current) drug therapy; Z88.2 Allergy status to sulfonamides; Z88.8 Allergy status to other drugs, medicaments and biological substances; Z91.048 Other nonmedicinal substance allergy status; Z91.018 Allergy to other foods | CPT/HCPCS: J3301 ==

== ENCOUNTER → 2018-05-16 | Outpatient (CLI) | payer OTHER ==
[~2018-05-16] MED LIST changes: +ALLE25CA OR; +BACL10TA2 PO; -BUPIVACAINE HCL 0.25% 10 ML VIAL As Ordered; -BUPIVACAINE HCL 0.25% 30 ML VIAL As Ordered; +CALC500T49 OR; +CARI350T; +CRANBERRY TABLETS PO; +DESONIDE TOP; +IBUP800T OR; +IBUP80TA PO; +LIDO5DIS; +LIDO5DIS TD; +Nasonex; +Omega 3 PO; +RED RICE YEAST; +SING10TA31 PO; +SING10TA32 PO; +SOMA250T; +THERGRAN; -TRIAMCINOLONE ACETONIDE SUSP 40 MG/ML VIAL (J3301) As Ordered; +VIT D 2000 PO; +[UNRECOGNIZED DRUG - OTHER]; +[UNRECOGNIZED DRUG - OTHER] PO; +patanol OU
--- NOTE | 2018-06-01 00:25 | ECWPNPC ---
PATIENT NAME: ZAKIA BLAKE : 1955 GENDER: FEMALE VISIT DATE: 05/16/2018 DISCHARGE DATE: 05/16/18 1205 VISIT LOCKED DATE TIME: PHYSICIAN: KEN CASTELLANO RESOURCE: KEN CASTELLANO REASON FOR APPOINTMENT 1. WC POST TPI HISTORY OF PRESENT ILLNESS HISTORY OF PRESENT ILLNESS: HERE FOR EXACERBATION OF LOW BACK PAIN.THIS BEGAN A FEW WEEKS AGO AND HAS PROGRESSIVELY GOTTEN WORSE.RATING PAIN VAS 8/10.PAIN IS LOCATED ACROSS LOW BACK R>L.THIS IS A WORK RELATED INJURY WITH DOI:[id number].HAS RESPONDED WELL TO TPI IN PAST. PAIN THE PATIENT DESCRIBES THE PAIN... THE PATIENT DESCRIBES THE PAIN... THE PATIENT DESCRIBES THE PAIN... PAIN THE PATIENT DESCRIBES THE PAIN... THE PATIENT DESCRIBES THE PAIN... THE PATIENT DESCRIBES THE PAIN... FALL RISK SCREENING: SCREENING :NO FALLS IN THE PAST YEAR CURRENT MEDICATIONS TAKING BENADRYL 25 MG TABLET 1 TABLET NEEDED ORALLY EVERY 6 HRS, NOTES: NONE RECENTLY TAKING CALCIUM 500 MG TABLET 1 TABLET ORALLY DAILY, NOTES: 02/27 1200 TAKING VITAMIN D 1000 UNIT CAPSULE 1 CAPSULE ORALLY ONCE A DAY, NOTES: 02/27 1200 TAKING PATANOL SOLUTION 1 DROP INTO AFFECTED EYE OPHTHALMIC DIRECTED, NOTES: NONE RECENT TAKING ST [place] WORT TABLET 2 TABLET ORALLY ONCE A DAY, NOTES: 02/27 08 TAKING DESONIDE CREAM 1 APPLICATION TO AFFECTED AREA EXTERNALLY TWICE A DAY, NOTES: 02/28 0730 TAKING RANITIDINE HCL 150 MG CAPSULE 1 CAP ORALLY TWICE A DAY, NOTES: 02/27 2830 TAKING BACLOFEN 10 MG TABLET 1 TAB ORALLY BID PRN FOR SPASMS AND PAIN, NOTES: 02/280 TAKING SINGULAIR 10 MG TABLET 1 TABLET ORALLY ONCE A DAY, NOTES: 02/28 06 TAKING CLARITIN 10 MG TABLET 1 TABLET ORALLY ONCE A DAY NEEDED, NOTES: 02/28 800 MEDICATION LIST REVIEWED AND RECONCILED WITH THE PATIENT PAST MEDICAL HISTORY ASTHMA GERD DISCOID LUPUS DIVERTICULITIS ULCERATIVE COLITIS HIATAL HERNIA GASTRITIS THORACIC AND LUMBAR PAIN ALLERGIES WHEAT: NAUSEA/VOMITING LACTOSE: NAUSEA/VOMITING: ALLERGY BANDAIDS: RASH: ALLERGY FLEXERIL: HIVES: ALLERGY NITROFURANTOIN: RASH: ALLERGY SULFA (FOR ALLERGY USE ONLY): RASH: ALLERGY SURGICAL HISTORY SPLENECTOMY 1978 CHOLECYSTECTOMY 2006 HYSTERECTOMY AND BLADDER SUSPENSION 2004 FAMILY HISTORY FATHER: , DIAGNOSED WITH DIABETES, HYPERTENSION, OTHER MOTHER: 90 YRS, CONGESTIVE HEART FAILURE, DIAGNOSED WITH HEART DISEASE 1 SON(S) , 1 DAUGHTER(S) - HEALTHY. DAD-PARKINSONS. SOCIAL HISTORY GENERAL: TOBACCO USE ARE YOU A:NONSMOKER ADDITIONAL FINDINGS: TOBACCO [id number] FOR PERSONAL REASONS ALCOHOL SCREENING DID YOU HAVE A DRINK CONTAINING ALCOHOL IN THE PAST YEAR?NO POINTS0 INTERPRETATIONNEGATIVE RECREATIONAL DRUG USE DRUG USE?NO CAFFEINE CAFFEINE USE?YES HOW OFTEN AND HOW MUCH? 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 EXERCISE: STRETCHES, WALKS. NEW PATIENT PAIN DIARY FROM 0-10, WHAT LEVEL IS YOUR PAIN TODAY?8 PAIN CLINIC PFS, CLERGY, PUBLIC HEALTH REFERRALS PFS REFERRAL NEEDED?NO CLERGY REFERRAL NEEDED?NO PUBLIC HEALTH REFERRAL NEEDED?NO WAS THE PROVIDER NOTIFIED OF ANY PERTINENT INFO? N/A HAS THE PATIENT BEEN EDUCATED REGARDING HIS/HER PLAN OF CARE?YES HAS THE PATIENT BEEN EDUCATED REGARDING PAIN, THE RISK FOR PAIN, THE IMPORTANCE OF EFFECTIVE PAIN MANAGEMENT, AND THE PAIN ASSESSMENT PROCESS?YES ADVANCE DIRECTIVE ADVANCE DIRECTIVE DISCUSSED WITH PATIENT:YES 05/16/18 PT HAS HCP [facility] [phone] [facility] 01/13/18 REVIEWED WITH PT. AD02/28/18 REVIEWED WITH PT. AD05/16/18 1140 REVIEWED WITH PT LAS. HOSPITALIZATION/MAJOR DIAGNOSTIC PROCEDURE SURGERIES/CHILDBIRTH REVIEW OF SYSTEMS REVIEWED BY: PROVIDER: KEN LEO . CONSTITUTIONAL: ANY CHANGE IN YOUR MEDICAL CONDITION? NO . CHILLS NO . FEVER NO . INFECTION: DO YOU HAVE NEW INFECTIONS? NO . DO YOU HAVE HISTORY OF MRSA? NO . MUSCULOSKELETAL: ANY NEW PATTERNS OF PAIN OR NUMBNESS? NO . GASTROENTEROLOGY: ANY NEW CHANGE IN BOWEL CONTROL? NO . GENITOURINARY: ANY NEW CHANGE IN BLADDER CONTROL? NO . IS THERE A CHANCE YOU COULD BE ? NO . HEMATOLOGY/LYMPH: DO YOU TAKE ANY BLOOD THINNERS? (FOR EXAMPLE- COUMADIN, PLAVIX, AGGRENOX, PLATEL, PRADAXA, OR XARELTO) NO . WHEN WAS YOUR LAST DOSE? DATE: TIME: . NEUROLOGY: HAVE YOU FALLEN IN THE PAST 12 MONTHS? NO . ANY NEW EXTREMITY NUMBNESS OR WEAKNESS? NO . CARDIOLOGY: DO YOU HAVE A PACEMAKER OR DEFIBRILLATOR? NO . RESPIRATORY: HAVE YOU BEEN SICK IN THE PAST WEEK? NO . FEVER NO . FLU LIKE SYMPTOMS? NO . COUGH NO . INTEGUMENTARY: DO YOU HAVE ANY RASHES OR OPEN SORES? NO . ALLERGIC/IMMUNO: ARE YOU ALLERGIC TO IV DYE? NO . ANY NEW ALLERGIES? NO . PSYCHIATRIC: DO YOU HAVE THOUGHTS OF HURTING YOURSELF OR SOMEONE ELSE? NO . ARE YOU ABUSED, NEGLECTED, OR IN AN UNSAFE ENVIRONMENT? NO . ENDOCRINOLOGY: ARE YOU DIABETIC? NO . OTHER: DO YOU NEED ANY PRESCRIPTIONS? NO . IF YES, PLEASE LIST: ____ . ANY NEW PROBLEMS WITH YOUR MEDICATIONS? NO . WHEN DID YOU LAST EAT? ____ . WHEN DID YOU LAST DRINK? ____ . WHAT DID YOU LAST DRINK? ____ . NAME OF PERSON DRIVING YOU HOME? ____ . DO YOU HAVE ANY OTHER QUESTIONS OR CONCERNS NO . VITAL SIGNS WT 133 LBS, HT 61 1/2, BMI 24.72 INDEX, BP 128/64 MM HG, HR 61 /MIN, RR 16 /MIN, TEMP 98.9 F, OXYGEN SAT % 95%, SAFE IN ENV? (Y/N) YES, NA INITIALS AW 1131, REVIEWED BY: EILEEN. EXAMINATION GENERAL EXAMINATION: LUNGS:LUNG SOUNDS ARE CLEAR . HEART:HEART RATE REGULAR . MUSCULOSKELETAL:*, MUSCLE STRENGTH TESTING 5/5 BILATERAL UPPER AND LOWER EXTREMITIES, PALPATION: + FOR PAIN OVER L/S SPINE. + FOR PAIN OVER L/S PARSPINALS, . , TRIGGER POINTS: ELICITED WITH PALPATION OVER LUMBAR PARAVERTEBRAL MUSCLES. RESTRICTION OF ROM IN THIS AREA. ASSESSMENTS MYALGIA, OTHER SITE - M79.18 (PRIMARY) TREATMENT MYALGIA, OTHER SITE NOTES: W/C REQUEST TPI BILAT THORACIC /LUMBAR. PROCEDURES PN WORKMANS' COMP OPINION IN YOUR OPINION, WAS THE INCIDENT THAT THE PATIENT DESCRIBED THE COMPETENT MEDICAL CAUSE OF THIS INJURY/ILLNESS? YES ARE THE PATIENT'S COMPLAINTS CONSISTENT WITH HIS/HER HISTORY OF THE INJURY/ILLNESS? YES IS THE PATIENT'S HISTORY OF THE INJURY/ILLNESS CONSISTENT WITH YOUR OBJECTIVE FINDING? YES WHAT IS THE PERCENTAGE OF TEMPORARY IMPAIRMENT? MODERATE TO MARKED = 66.7% IS THE PATIENT WORKING? NO DOCTOR ON SITE: JAVAD HATHAWAY MD PREVENTIVE MEDICINE PAIN CLINIC TEACHING: PROCEDURE TEACHING PROCEDURE TEACHING DONE, PT VERBALIZES UNDERSTANDING. LAS 05/16/18 1200 . PROCEDURE CODES FA211 ESTABILISHED PATIENT [facility] FACILITY CHARGE DISPOSITION & COMMUNICATION FOLLOW UP POST (REASON: W/C REQUEST TPI BILAT THORACIC /LUMBAR) ELECTRONICALLY SIGNED BY FELIPA WOOD ON 05/31/2018 AT 02:05 PM EST DISCLAIMER : THIS IS A VISIT SUMMARY EXTRACTED FROM THE [employer] CHART. IT IS NOT A COPY OF THE [employer] PROGRESS NOTE. SACHA
== END ==
LOC: M PAIN 10:45
PROVIDERS: ATTEND Nurse Practitioner Family
DX: M79.18 Myalgia, other site (principal); J45.909 Unspecified asthma, uncomplicated; L93.0 Discoid lupus erythematosus; K51.90 Ulcerative colitis, unspecified, without complications; K44.9 Diaphragmatic hernia without obstruction or gangrene; K21.9 Gastro-esophageal reflux disease without esophagitis; M54.5 Low back pain; M54.6 Pain in thoracic spine; Z79.899 Other long term (current) drug therapy; Z88.2 Allergy status to sulfonamides; Z88.8 Allergy status to other drugs, medicaments and biological substances; Z91.018 Allergy to other foods; Z91.048 Other nonmedicinal substance allergy status

== ENCOUNTER → 2018-07-03 | Outpatient (CLI) | payer OTHER ==
--- NOTE | 2018-07-16 23:36 | ECWPNPC ---
PATIENT NAME: ZAKIA BLAKE : 1955 GENDER: FEMALE VISIT DATE: 07/03/2018 DISCHARGE DATE: 07/03/18 1226 VISIT LOCKED DATE TIME: PHYSICIAN: JAVAD VILLALOBOS MD RESOURCE: JAVAD VILLALOBOS MD REASON FOR APPOINTMENT 1. W/C DENIAL HISTORY OF PRESENT ILLNESS HISTORY OF PRESENT ILLNESS: PAIN THE PATIENT DESCRIBES THE PAIN... 62 YEAR OLD FEMALE PATIENT WITH A HISTORY OF CHRONIC LOW BACK AND THORACIC PAIN. THE PATIENT DESCRIBES THE PAIN ACHING, BURNING, STABBING, SHOOTING, AND CONTINUOUS WITH A PAIN SCORE OF 8-10/10 DEPENDING ON PHYSICAL ACTIVITY. 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 THE PATIENT HAS RECEIVED TRIGGER POINT INJECTIONS IN THE PAST AND REPORTS HAVING MORE THAN 4 MONTHS OF PAIN RELIEF WITH INCREASED MOBILITY AND FUNCTIONALITY FOLLOWING THE INJECTION. THE PATIENT SAYS SHE HAS DIFFICULTY DOING DAILY ACTIVITIES SUCH WORKING, COOKING, AND CLEANING DUE TO THIS PAIN. PATIENT DENIES UNEXPLAINABLE WEIGHT LOSS, FEVER, CHILLS, NEW CHANGES ON HER URINARY OR BOWEL CONTROL. FALL RISK SCREENING: SCREENING : NO FALLS IN THE PAST YEAR. CURRENT MEDICATIONS TAKING BENADRYL 25 MG TABLET 1 TABLET NEEDED ORALLY EVERY 6 HRS TAKING CALCIUM 500 MG TABLET 1 TABLET ORALLY DAILY TAKING VITAMIN D 1000 UNIT CAPSULE 1 CAPSULE ORALLY ONCE A DAY TAKING PATANOL SOLUTION 1 DROP INTO AFFECTED EYE OPHTHALMIC DIRECTED TAKING ST [place] WORT TABLET 2 TABLET ORALLY ONCE A DAY TAKING DESONIDE CREAM 1 APPLICATION TO AFFECTED AREA EXTERNALLY TWICE A DAY TAKING RANITIDINE HCL 150 MG CAPSULE 1 CAP ORALLY TWICE A DAY TAKING BACLOFEN 10 MG TABLET 1 TAB ORALLY BID PRN FOR SPASMS AND PAIN TAKING SINGULAIR 10 MG TABLET 1 TABLET ORALLY ONCE A DAY TAKING CLARITIN 10 MG TABLET 1 TABLET ORALLY ONCE A DAY NEEDED, NOTES: TAKES NEEDED TAKING CIPROFLOXACIN HCL 500 MG TABLET 1 TABLET ORALLY EVERY 12 HRS MEDICATION LIST REVIEWED AND RECONCILED WITH THE PATIENT PAST MEDICAL HISTORY ASTHMA GERD DISCOID LUPUS DIVERTICULITIS ULCERATIVE COLITIS HIATAL HERNIA GASTRITIS THORACIC AND LUMBAR PAIN ALLERGIES WHEAT: NAUSEA/VOMITING LACTOSE: NAUSEA/VOMITING - ALLERGY BANDAIDS: RASH - ALLERGY FLEXERIL: HIVES - ALLERGY NITROFURANTOIN: RASH - ALLERGY SULFA (FOR ALLERGY USE ONLY): RASH - ALLERGY SURGICAL HISTORY SPLENECTOMY 1977 CHOLECYSTECTOMY 2006 HYSTERECTOMY AND BLADDER SUSPENSION 2004 FAMILY HISTORY FATHER: , DIAGNOSED WITH DIABETES, HYPERTENSION, OTHER MOTHER: 90 YRS, CONGESTIVE HEART FAILURE, HEART DISEASE 1 SON(S) , 1 DAUGHTER(S) - HEALTHY. DAD-PARKINSONS. SOCIAL HISTORY GENERAL: TOBACCO USE ARE YOU A:NONSMOKER ADDITIONAL FINDINGS: TOBACCO [id number] FOR PERSONAL REASONS LATEX QUESTIONNAIRE LATEX ALLERGY : HAVE YOU EVER DEVELOPED ANY TYPE OF REACTION AFTER HANDLING LATEX PRODUCTS SUCH RUBBER GLOVES, CONDOMS, DIAPHRAGMS, BALLOONS, SOCKS, OR UNDERWEAR?NO LATEX ALLERGY : HAVE YOU EVER DEVELOPED ANY TYPE OF REACTION DURING OR AFTER DENTAL APPOINTMENT, VAGINAL/RECTAL EXAMINATION, SURGICAL PROCEDURE, OR ANY OTHER EXPOSURE?NO LATEX RISK : HAVE YOU EVER HAD ANY DIFFICULTY BREATHING OR HIVES AFTER EATING OR HANDLING ANY FRUITS, OR VEGETABLES; SUCH KIWI, BANANAS, STONE FRUITS, OR CHESTNUTSNO LATEX RISK : DO YOU HAVE A PREVIOUS PERSONAL HISTORY OF MORE THAN NINE SURGERIES, SPINA BIFIDA, OR REPEATED CATHERTIZATIONS? NO LATEX RISK : ARE YOU FREQUENTLY EXPOSED TO LATEX PRODUCTS IN YOUR OCCUPATION?NO DATE ASKED : 07/03/2018 ALCOHOL SCREENING DID YOU HAVE A DRINK CONTAINING ALCOHOL IN THE PAST YEAR?NO POINTS0 INTERPRETATIONNEGATIVE RECREATIONAL DRUG USE DRUG USE?NO CAFFEINE CAFFEINE USE?YES HOW OFTEN AND HOW MUCH? 0-1 CUP PER DAY WORSHIP [id number] HINDU LANGUAGE LANGUAGES SPOKEN:CHADIAN LEARNING BARRIERS / SPECIAL NEEDS BARRIERS TO LEARNING?NO HEARING IMPAIRED?NO VISION IMPAIRED?YES :CORRECTIVE LENSES COGNITIVELY IMPAIRED?NO READINESS TO LEARN?YES LEARNING PREFERENCES?YES :TAPES/VIDEOS, BOOKLETS, HANDOUTS, DEMONSTRATION/VERBAL INSTRUCTION LEARNING CAPABILITIES PRESENT?YES EMOTIONAL BARRIERS?NO SPECIAL DEVICES?NO INFANTRYMAN NEEDED?NO DOMESTIC VIOLENCE DO YOU FEEL SAFE IN YOUR ENVIRONMENT?YES DIET: GLUTEN FREE, LACTOSE FREE. EXERCISE: STRETCHES, WALKS. NEW PATIENT PAIN DIARY FROM 0-10, WHAT LEVEL IS YOUR PAIN TODAY?8 PAIN CLINIC PFS, CLERGY, PUBLIC HEALTH REFERRALS PFS REFERRAL NEEDED?NO CLERGY REFERRAL NEEDED?NO PUBLIC HEALTH REFERRAL NEEDED?NO WAS THE PROVIDER NOTIFIED OF ANY PERTINENT INFO? N/A HAS THE PATIENT BEEN EDUCATED REGARDING HIS/HER PLAN OF CARE?YES HAS THE PATIENT BEEN EDUCATED REGARDING PAIN, THE RISK FOR PAIN, THE IMPORTANCE OF EFFECTIVE PAIN MANAGEMENT, AND THE PAIN ASSESSMENT PROCESS?YES ADVANCE DIRECTIVE ADVANCE DIRECTIVE DISCUSSED WITH PATIENT:YES 05/16/18 PT HAS HCP [facility] [phone] LAS 01/13/18 REVIEWED WITH PT. AD02/28/18 REVIEWED WITH PT. AD05/16/18 1140 REVIEWED WITH PT LASREVIEWED WITH PT 07/03/18 1029 BV. HOSPITALIZATION/MAJOR DIAGNOSTIC PROCEDURE SURGERIES/CHILDBIRTH REVIEW OF SYSTEMS REVIEWED BY: PROVIDER: JAVAD VILLALOBOS MD . CONSTITUTIONAL: ANY CHANGE IN YOUR MEDICAL CONDITION? NO . CHILLS NO . FEVER NO . INFECTION: DO YOU HAVE NEW INFECTIONS? YES, PT HAS BEEN ON CIPROFLOXACIN SINCE 06/29 FOR RESPIRATORY INFECTION AND UTI . DO YOU HAVE HISTORY OF MRSA? NO . MUSCULOSKELETAL: ANY NEW PATTERNS OF PAIN OR NUMBNESS? YES, PT HAS HAD INCREASE IN MUSCLE SPASMS AND PAIN. ALSO REPORTS INCREASED "LEG TWITCHING" AT NIGHT THAT KEEPS HER AWAKE. . GASTROENTEROLOGY: ANY NEW CHANGE IN BOWEL CONTROL? YES, PT COMPLAINS OF INCREASED DIARRHEA. STATES SHE HAS BEEN TAKING THE BACLOFEN FREQUENTLY TO CONTROL HER SPASMS AND SEEMS TO INCREASE OCCURANCE OF DIARRHEA. . GENITOURINARY: ANY NEW CHANGE IN BLADDER CONTROL? YES, PT COMPLAINS OF STRESS INCONTINENCE AND FREQUENCY. PT CURRENTLY ON ANTIBIOTICS FOR UTI . IS THERE A CHANCE YOU COULD BE ? NO . HEMATOLOGY/LYMPH: DO YOU TAKE ANY BLOOD THINNERS? (FOR EXAMPLE- COUMADIN, PLAVIX, AGGRENOX, PLATEL, PRADAXA, OR XARELTO) NO . WHEN WAS YOUR LAST DOSE? DATE: TIME: . NEUROLOGY: HAVE YOU FALLEN IN THE PAST 12 MONTHS? NO . ANY NEW EXTREMITY NUMBNESS OR WEAKNESS? NO . CARDIOLOGY: DO YOU HAVE A PACEMAKER OR DEFIBRILLATOR? NO . RESPIRATORY: HAVE YOU BEEN SICK IN THE PAST WEEK? YES, PT CURRENTLY TAKING ANTIBIOTICS FOR UTI AND RESPIRATORY INFECTION . FEVER NO . FLU LIKE SYMPTOMS? NO . COUGH NO . INTEGUMENTARY: DO YOU HAVE ANY RASHES OR OPEN SORES? NO . ALLERGIC/IMMUNO: ARE YOU ALLERGIC TO IV DYE? NO . ANY NEW ALLERGIES? NO . PSYCHIATRIC: DO YOU HAVE THOUGHTS OF HURTING YOURSELF OR SOMEONE ELSE? NO . ARE YOU ABUSED, NEGLECTED, OR IN AN UNSAFE ENVIRONMENT? NO . ENDOCRINOLOGY: ARE YOU DIABETIC? NO . OTHER: DO YOU NEED ANY PRESCRIPTIONS? NO . IF YES, PLEASE LIST: ____ . ANY NEW PROBLEMS WITH YOUR MEDICATIONS? NO . WHEN DID YOU LAST EAT? ____ . WHEN DID YOU LAST DRINK? ____ . WHAT DID YOU LAST DRINK? ____ . NAME OF PERSON DRIVING YOU HOME? ____ . DO YOU HAVE ANY OTHER QUESTIONS OR CONCERNS NO . VITAL SIGNS WT 134.8 LBS, HT 61 1/2, BMI 25.06 INDEX, BP 144/58 MM HG, HR 64 /MIN, RR 16 /MIN, TEMP 98.4 F, OXYGEN SAT % 98%, NA INITIALS AW 1022, REVIEWED BY: BV. EXAMINATION GENERAL EXAMINATION: PATIENT IS ALERT O X 3 AND COOPERATIVE. TENDERNESS IN THE THORACIC AND LOW BACK AREAS. PRESENCE OF TRIGGER POINTS AND BANDS OF TISSUE WITH RESTRICTION OF MOVEMENT OF THE BACK. ASSESSMENTS MYALGIA, OTHER SITE - M79.18 (PRIMARY) TREATMENT MYALGIA, OTHER SITE CLINICAL NOTES: WE DISCUSSED SEVERAL ISSUES WITH MRS. BLAKE'S PAIN MANAGEMENT CASE. DUE TO THE TRIGGER POINTS, BANDS OF TISSUE, AND RESTRICTION OF MOVEMENT AND THE PATIENT HAVING OVER 4 MONTHS OF PAIN RELIEF IN THE PAST, I WOULD LIKE TO MOVE FORWARD WITH A TRIGGER POINT INJECTION AT THIS TIME. WE DISCUSSED THE BENEFITS, RISKS, AND ALTERNATIVES OF THE INJECTION AND THE PATIENT WOULD LIKE TO PROCEED. THE PATIENT IS CURRENTLY WORKING AND SAYS SHE IS HAVING DIFFICULTIES TO WORK DUE TO THIS PAIN, SO I AM LOOKING TO INCREASE HER MOBILITY AND FUNCTIONALITY WITH THIS INJECTION. THE PATIENT WILL FOLLOW UP WITH A NURSE PRACTITIONER A FEW WEEKS AFTER THE INJECTION. INSTRUCTIONS WERE GIVEN, QUESTIONS WERE ANSWERED, PATIENT REPORTS UNDERSTANDING AND AGREES WITH THE PLAN. I, FIFI BLACKWOOD, DOCUMENTED THE ABOVE INFORMATION ACTING A SCRIBE FOR DR. VILLALOBOS. I HAVE REVIEWED THE ABOVE DOCUMENT, WRITTEN BY FIFI JESSICA AND I VERIFY THAT IT IS ACCURATE. . PROCEDURES PN WORKMANS' COMP OPINION IN YOUR OPINION, WAS THE INCIDENT THAT THE PATIENT DESCRIBED THE COMPETENT MEDICAL CAUSE OF THIS INJURY/ILLNESS? YES ARE THE PATIENT'S COMPLAINTS CONSISTENT WITH HIS/HER HISTORY OF THE INJURY/ILLNESS? YES IS THE PATIENT'S HISTORY OF THE INJURY/ILLNESS CONSISTENT WITH YOUR OBJECTIVE FINDING? YES WHAT IS THE PERCENTAGE OF TEMPORARY IMPAIRMENT? MODERATE TO MARKED = 66.7% IS THE PATIENT WORKING? YES DOCTOR ON SITE: JAVAD HATHAWAY MD PROCEDURE CODES FA211 ESTABILISHED PATIENT [facility] FACILITY CHARGE G8427 CURRENT MEDS W/DOSAGES DOCUMENTED G8730 PAIN ASSESS POS TOOL F/U PLAN DOC DISPOSITION & COMMUNICATION FOLLOW UP 3 WEEKS ELECTRONICALLY SIGNED BY JAVAD VILLALOBOS MD, ON 07/16/2018 AT 03:38 PM EDT DISCLAIMER : THIS IS A VISIT SUMMARY EXTRACTED FROM THE [employer] CHART. IT IS NOT A COPY OF THE [employer] PROGRESS NOTE. FELAD
== END ==
LOC: M PAIN 10:15
PROVIDERS: ATTEND Anesthesiology
DX: M79.18 Myalgia, other site (principal); M54.5 Low back pain; M54.6 Pain in thoracic spine; Z79.899 Other long term (current) drug therapy; Z88.8 Allergy status to other drugs, medicaments and biological substances; Z88.2 Allergy status to sulfonamides; Z91.048 Other nonmedicinal substance allergy status; Z91.018 Allergy to other foods; N39.3 Stress incontinence (female) (male); R35.0 Frequency of micturition

== ENCOUNTER → 2018-09-22 | Outpatient (CLI) | payer OTHER ==
--- NOTE | 2018-09-29 02:19 | ECWPNPC ---
PATIENT NAME: ZAKIA BLAKE : 1955 GENDER: FEMALE VISIT DATE: 09/22/2018 DISCHARGE DATE: 09/22/18 1209 VISIT LOCKED DATE TIME: PHYSICIAN: JAVAD VILLALOBOS MD RESOURCE: JAVAD VILLALOBOS MD REASON FOR APPOINTMENT 1. LOW BACK-WC HISTORY OF PRESENT ILLNESS HISTORY OF PRESENT ILLNESS: PAIN THE PATIENT DESCRIBES THE PAIN... 63 YEAR OLD FEMALE PATIENT WITH A HISTORY OF CHRONIC THORACIC AND LOW BACK PAIN. THE PATIENT DESCRIBES THE PAIN ACHING, BURNING, TENDER, STABBING, SHOOTING, AND CONTINUOUS WITH A PAIN SCORE OF 7-10/10 DEPENDING ON PHYSICAL ACTIVITY. 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 THE PATIENT SAYS THE PAIN IN HER LOW BACK IS CURRENTLY THE WORST. THE PATIENT SAYS THAT AFTER SHE SITS FOR A LONG PERIOD OF TIME SHE FEELS A "DISCONNECT" FROM HER LEGS AND HAS DIFFICULTY WALKING CAUSING HER TO STUMBLE INTO THINGS. THE PATIENT SAYS THAT SHE ALWAYS HAS TO MASSAGE HER BACK BECAUSE IT HELPS WITH SOME OF THE PAIN. THE PATIENT SAYS THAT SHE HAS DIFFICULTY WORKING BECAUSE SHE HAS TO SIT A DESK DURING THE DAY AND IS ONLY ABLE TO SIT FOR 5 MINUTES BEFORE SHE HAS TO GET UP AND MOVE AROUND, SO SHE HAS HAD TO PLACE ITEMS AWAY FROM HER DESK TO GIVE HER A REASON TO WALK AROUND. THE PATIENT STATES SHE ALSO HAS DIFFICULTY SLEEPING BECAUSE THE PAIN CAUSES HER TO WAKE UP EVERY HOUR. THE PATIENT EXPRESSES THAT SHE IS VERY ANXIOUS, FRUSTRATED, AND UNABLE TO CONCENTRATE BECAUSE HER PAIN HAS BEEN WORSENING. PATIENT DENIES UNEXPLAINABLE WEIGHT LOSS, FEVER, CHILLS, NEW CHANGES ON HER URINARY OR BOWEL CONTROL. FALL RISK SCREENING: SCREENING :NO FALLS REPORTED IN THE LAST YEAR CURRENT MEDICATIONS TAKING BENADRYL 25 MG TABLET 1 TABLET NEEDED ORALLY EVERY 6 HRS TAKING CALCIUM 500 MG TABLET 1 TABLET ORALLY DAILY TAKING VITAMIN D 1000 UNIT CAPSULE 1 CAPSULE ORALLY ONCE A DAY TAKING PATANOL SOLUTION 1 DROP INTO AFFECTED EYE OPHTHALMIC DIRECTED TAKING ST [place] WORT TABLET 2 TABLET ORALLY ONCE A DAY TAKING DESONIDE CREAM 1 APPLICATION TO AFFECTED AREA EXTERNALLY TWICE A DAY TAKING RANITIDINE HCL 150 MG CAPSULE 1 CAP ORALLY TWICE A DAY TAKING BACLOFEN 10 MG TABLET 1 TAB ORALLY BID PRN FOR SPASMS AND PAIN TAKING SINGULAIR 10 MG TABLET 1 TABLET ORALLY ONCE A DAY TAKING CLARITIN 10 MG TABLET 1 TABLET ORALLY ONCE A DAY NEEDED, NOTES: TAKES NEEDED TAKING MAY HAVE - - CBD OIL NOT-TAKING CIPROFLOXACIN HCL 500 MG TABLET 1 TABLET ORALLY EVERY 12 HRS MEDICATION LIST REVIEWED AND RECONCILED WITH THE PATIENT PAST MEDICAL HISTORY ASTHMA GERD DISCOID LUPUS DIVERTICULITIS ULCERATIVE COLITIS HIATAL HERNIA GASTRITIS THORACIC AND LUMBAR PAIN ALLERGIES WHEAT: NAUSEA/VOMITING LACTOSE: NAUSEA/VOMITING - ALLERGY BANDAIDS: RASH - ALLERGY FLEXERIL: HIVES - ALLERGY NITROFURANTOIN: RASH - ALLERGY SULFA (FOR ALLERGY USE ONLY): RASH - ALLERGY SURGICAL HISTORY SPLENECTOMY 1977 CHOLECYSTECTOMY 2006 HYSTERECTOMY AND BLADDER SUSPENSION 2004 FAMILY HISTORY FATHER: , DIAGNOSED WITH DIABETES, HYPERTENSION, OTHER MOTHER: 90 YRS, CONGESTIVE HEART FAILURE, HEART DISEASE 1 SON(S) , 1 DAUGHTER(S) - HEALTHY. DAD-PARKINSONS. SOCIAL HISTORY GENERAL: TOBACCO USE ARE YOU A:NONSMOKER ADDITIONAL FINDINGS: TOBACCO [id number] FOR PERSONAL REASONS DIET: GLUTEN FREE, LACTOSE FREE. LANGUAGE LANGUAGES SPOKEN:BRUNEIAN DOMESTIC VIOLENCE DO YOU FEEL SAFE IN YOUR ENVIRONMENT?YES NEW PATIENT PAIN DIARY FROM 0-10, WHAT LEVEL IS YOUR PAIN TODAY?8 RECREATIONAL DRUG USE DRUG USE?NO EXERCISE: STRETCHES, WALKS. LEARNING BARRIERS / SPECIAL NEEDS BARRIERS TO LEARNING?NO HEARING IMPAIRED?NO VISION IMPAIRED?YES :CORRECTIVE LENSES COGNITIVELY IMPAIRED?NO READINESS TO LEARN?YES LEARNING PREFERENCES?YES :TAPES/VIDEOS, BOOKLETS, HANDOUTS, DEMONSTRATION/VERBAL INSTRUCTION LEARNING CAPABILITIES PRESENT?YES EMOTIONAL BARRIERS?NO SPECIAL DEVICES?NO LEAD WEB APPLICATION DEVELOPER NEEDED?NO PAIN CLINIC PFS, CLERGY, PUBLIC HEALTH REFERRALS PFS REFERRAL NEEDED?NO CLERGY REFERRAL NEEDED?NO PUBLIC HEALTH REFERRAL NEEDED?NO WAS THE PROVIDER NOTIFIED OF ANY PERTINENT INFO? N/A HAS THE PATIENT BEEN EDUCATED REGARDING HIS/HER PLAN OF CARE?YES HAS THE PATIENT BEEN EDUCATED REGARDING PAIN, THE RISK FOR PAIN, THE IMPORTANCE OF EFFECTIVE PAIN MANAGEMENT, AND THE PAIN ASSESSMENT PROCESS?YES LATEX QUESTIONNAIRE LATEX ALLERGY : HAVE YOU EVER DEVELOPED ANY TYPE OF REACTION AFTER HANDLING LATEX PRODUCTS SUCH RUBBER GLOVES, CONDOMS, DIAPHRAGMS, BALLOONS, SOCKS, OR UNDERWEAR?NO LATEX ALLERGY : HAVE YOU EVER DEVELOPED ANY TYPE OF REACTION DURING OR AFTER DENTAL APPOINTMENT, VAGINAL/RECTAL EXAMINATION, SURGICAL PROCEDURE, OR ANY OTHER EXPOSURE?NO LATEX RISK : HAVE YOU EVER HAD ANY DIFFICULTY BREATHING OR HIVES AFTER EATING OR HANDLING ANY FRUITS, OR VEGETABLES; SUCH KIWI, BANANAS, STONE FRUITS, OR CHESTNUTSNO LATEX RISK : DO YOU HAVE A PREVIOUS PERSONAL HISTORY OF MORE THAN NINE SURGERIES, SPINA BIFIDA, OR REPEATED CATHERTIZATIONS? NO LATEX RISK : ARE YOU FREQUENTLY EXPOSED TO LATEX PRODUCTS IN YOUR OCCUPATION?NO DATE ASKED : 07/03/2018 CAFFEINE CAFFEINE USE?YES HOW OFTEN AND HOW MUCH? 0-1 CUP PER DAY ADVANCE DIRECTIVE ADVANCE DIRECTIVE DISCUSSED WITH PATIENT:YES 05/16/18 PT HAS HCP [facility] [phone] EILEEN DAHL [id number] ALEVISM ALCOHOL SCREENING DID YOU HAVE A DRINK CONTAINING ALCOHOL IN THE PAST YEAR?NO POINTS0 INTERPRETATIONNEGATIVE 01/13/18 REVIEWED WITH PT. AD02/28/18 REVIEWED WITH PT. AD05/16/18 1140 REVIEWED WITH PT LASREVIEWED WITH PT 07/03/18 1029 BVREVIEWED WITH PT 09/22/18 1055 BV. HOSPITALIZATION/MAJOR DIAGNOSTIC PROCEDURE SURGERIES/CHILDBIRTH REVIEW OF SYSTEMS REVIEWED BY: PROVIDER: JAVAD VILLALOBOS MD . CONSTITUTIONAL: ANY CHANGE IN YOUR MEDICAL CONDITION? NO . CHILLS NO . FEVER NO . INFECTION: DO YOU HAVE NEW INFECTIONS? NO . DO YOU HAVE HISTORY OF MRSA? NO . MUSCULOSKELETAL: ANY NEW PATTERNS OF PAIN OR NUMBNESS? INCREASING NUMBNESS AND WEAKNESS IN LEGS, LEFT>RIGHT. STATES THIS IS WORSE AT NIGHT. . GASTROENTEROLOGY: ANY NEW CHANGE IN BOWEL CONTROL? NO . GENITOURINARY: ANY NEW CHANGE IN BLADDER CONTROL? NO . IS THERE A CHANCE YOU COULD BE ? NO . HEMATOLOGY/LYMPH: DO YOU TAKE ANY BLOOD THINNERS? (FOR EXAMPLE- COUMADIN, PLAVIX, AGGRENOX, PLATEL, PRADAXA, OR XARELTO) NO . WHEN WAS YOUR LAST DOSE? DATE: TIME: . NEUROLOGY: HAVE YOU FALLEN IN THE PAST 12 MONTHS? YES, PT HAS HAD 2 FALLS SINCE LAST VISIT WITH US. STATES BOTH FALLS WERE DUE TO WEAKNESS IN LEGS. DENIES ANY INJURIES OR ED VISIT WITH EITHER FALL. . ANY NEW EXTREMITY NUMBNESS OR WEAKNESS? NO . CARDIOLOGY: DO YOU HAVE A PACEMAKER OR DEFIBRILLATOR? NO . RESPIRATORY: HAVE YOU BEEN SICK IN THE PAST WEEK? NO . FEVER NO . FLU LIKE SYMPTOMS? NO . COUGH NO . INTEGUMENTARY: DO YOU HAVE ANY RASHES OR OPEN SORES? NO . ALLERGIC/IMMUNO: ARE YOU ALLERGIC TO IV DYE? NO . ANY NEW ALLERGIES? NO . PSYCHIATRIC: DO YOU HAVE THOUGHTS OF HURTING YOURSELF OR SOMEONE ELSE? NO . ARE YOU ABUSED, NEGLECTED, OR IN AN UNSAFE ENVIRONMENT? NO . ENDOCRINOLOGY: ARE YOU DIABETIC? NO . OTHER: DO YOU NEED ANY PRESCRIPTIONS? YES, BACLOFEN . IF YES, PLEASE LIST: ____ . ANY NEW PROBLEMS WITH YOUR MEDICATIONS? NO . WHEN DID YOU LAST EAT? ____ . WHEN DID YOU LAST DRINK? ____ . WHAT DID YOU LAST DRINK? ____ . NAME OF PERSON DRIVING YOU HOME? ____ . DO YOU HAVE ANY OTHER QUESTIONS OR CONCERNS YES, PT WOULD LIKE TO DISCUSS DENIAL OF TRIGGER POINT INJECTIONS. . VITAL SIGNS WT 135.6 LBS, HT 61 1/2, BMI 25.20 INDEX, BP 130/59 MM HG, HR 58 /MIN, RR 16 /MIN, TEMP 97.3 F, OXYGEN SAT % 99%, NA INITIALS SC 10:44, REVIEWED BY: BV. EXAMINATION GENERAL EXAMINATION: PATIENT IS ALERT O X 3 AND COOPERATIVE. SEVERE TENDERNESS OVER THE LOW BACK AREA IN THE PARASPINAL MUSCLE GROUP. PRESENCE OF TRIGGER POINTS AND BANDS OF TISSUE WITH RESTRICTION OF MOVEMENT OF THE BACK. ASSESSMENTS LOW BACK PAIN - M54.5 (PRIMARY) MYALGIA, OTHER SITE - M79.18 OTHER CHRONIC PAIN - G89.29 THORACIC SPINE PAIN - M54.6 TREATMENT LOW BACK PAIN CLINICAL NOTES: WE DISCUSSED SEVERAL ISSUES WITH MRS. BLAKE'S PAIN MANAGEMENT CASE. I WILL ORDER A NEW LUMBAR MRI TO GET A BETTER IDEA OF WHERE THE PATIENT'S PAIN IS COMING FROM. THE PATIENT'S PREVIOUS MRI IS OVER 6 YEARS OLD AND HER PAIN HAS BEEN GETTING WORSE, SO I BELIEVE A NEW MRI IS NECESSARY. THE PATIENT WILL FOLLOW UP IN 1 MONTH. INSTRUCTIONS WERE GIVEN, QUESTIONS WERE ANSWERED, PATIENT REPORTS UNDERSTANDING AND AGREES WITH THE PLAN. I, FIFI BLACKWOOD, DOCUMENTED THE ABOVE INFORMATION ACTING A SCRIBE FOR DR. VILLALOBOS. I HAVE REVIEWED THE ABOVE DOCUMENT, WRITTEN BY FIFI JESSICA AND I VERIFY THAT IT IS ACCURATE. . PROCEDURES PN WORKMANS' COMP OPINION IN YOUR OPINION, WAS THE INCIDENT THAT THE PATIENT DESCRIBED THE COMPETENT MEDICAL CAUSE OF THIS INJURY/ILLNESS? YES ARE THE PATIENT'S COMPLAINTS CONSISTENT WITH HIS/HER HISTORY OF THE INJURY/ILLNESS? YES IS THE PATIENT'S HISTORY OF THE INJURY/ILLNESS CONSISTENT WITH YOUR OBJECTIVE FINDING? YES WHAT IS THE PERCENTAGE OF TEMPORARY IMPAIRMENT? MODERATE TO MARKED = 66.7% IS THE PATIENT WORKING? YES DOCTOR ON SITE: JAVAD HATHAWAY MD PROCEDURE CODES FA211 ESTABILISHED PATIENT [facility] FACILITY CHARGE G8427 CURRENT MEDS W/DOSAGES DOCUMENTED G8730 PAIN ASSESS POS TOOL F/U PLAN DOC DISPOSITION & COMMUNICATION FOLLOW UP 4 WEEKS (REASON: W/C LOW BACK AND THORACIC) ELECTRONICALLY SIGNED BY JAVAD VILLALOBOS MD, MD ON 09/26/2018 AT 05:26 PM EDT DISCLAIMER : THIS IS A VISIT SUMMARY EXTRACTED FROM THE [employer] CHART. IT IS NOT A COPY OF THE [employer] PROGRESS NOTE. SACHA
== END ==
LOC: M PAIN 10:45
PROVIDERS: ATTEND Anesthesiology
DX: M54.5 Low back pain (principal); M79.18 Myalgia, other site; G89.29 Other chronic pain; M54.6 Pain in thoracic spine; Z88.2 Allergy status to sulfonamides; Z88.8 Allergy status to other drugs, medicaments and biological substances; Z91.048 Other nonmedicinal substance allergy status; Z91.018 Allergy to other foods

== ENCOUNTER → 2018-10-20 | Outpatient (CLI) | payer OTHER ==
--- NOTE | 2018-10-24 00:47 | ECWPNPC ---
PATIENT NAME: ZAKIA BLAKE : 1955 GENDER: FEMALE VISIT DATE: 10/20/2018 DISCHARGE DATE: 10/20/18 1339 VISIT LOCKED DATE TIME: PHYSICIAN: JAVAD VILLALOBOS MD RESOURCE: JAVAD VILLALOBOS MD REASON FOR APPOINTMENT 1. W/C LOW BACK AND THORACIC HISTORY OF PRESENT ILLNESS HISTORY OF PRESENT ILLNESS: PAIN THE PATIENT DESCRIBES THE PAIN... 63 YEAR OLD FEMALE PATIENT WITH A HISTORY OF CHRONIC THORACIC AND LOW BACK PAIN. THE PATIENT DESCRIBES THE PAIN ACHING, STABBING, SHOOTING, AND CONTINUOUS WITH A PAIN SCORE OF 7-10/10 DEPENDING ON PHYSICAL ACTIVITY. 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 THE PATIENT SAYS THAT SHE HAS HAD SEVERE PAIN IN HER LOW BACK AREA FOR THE PAST COUPLE MONTHS. THE PATIENT SAYS THAT SHE CAN ONLY SIT FOR LESS THAN 5 MINUTES BEFORE SHE HAS TO STAND UP AND MOVE DUE TO HER PAIN. THE PATIENT SAYS THAT SHE CAN ONLY WALK FOR 10 MINUTES BEFORE SHE HAS TO TAKE A BREAK DUE TO HER PAIN. THE PATIENT REPORTS THAT SHE IS NOT SLEEPING AT NIGHT BECAUSE HER PAIN HAS WORSENED SO MUCH. THE PATIENT SAYS SHE SLEEPS FOR LESS THAN AN HOUR AT A TIME DUE TO THE PAIN. PATIENT DENIES UNEXPLAINABLE WEIGHT LOSS, FEVER, CHILLS, NEW CHANGES ON HER URINARY OR BOWEL CONTROL. FALL RISK SCREENING: SCREENING :NO FALLS REPORTED IN THE LAST YEAR CURRENT MEDICATIONS TAKING BACLOFEN 10 MG TABLET 1 TAB ORALLY BID PRN FOR SPASMS AND PAIN TAKING BENADRYL 25 MG TABLET 1 TABLET NEEDED ORALLY EVERY 6 HRS TAKING CALCIUM 500 MG TABLET 1 TABLET ORALLY DAILY TAKING VITAMIN D 1000 UNIT CAPSULE 1 CAPSULE ORALLY ONCE A DAY TAKING PATANOL SOLUTION 1 DROP INTO AFFECTED EYE OPHTHALMIC DIRECTED TAKING ST [place] WORT TABLET 2 TABLET ORALLY ONCE A DAY TAKING DESONIDE CREAM 1 APPLICATION TO AFFECTED AREA EXTERNALLY TWICE A DAY TAKING RANITIDINE HCL 150 MG CAPSULE 1 CAP ORALLY TWICE A DAY TAKING SINGULAIR 10 MG TABLET 1 TABLET ORALLY ONCE A DAY TAKING CLARITIN 10 MG TABLET 1 TABLET ORALLY ONCE A DAY NEEDED, NOTES: TAKES NEEDED TAKING MAY HAVE - - CBD OIL TAKING AUGMENTIN 500-125 MG TABLET 1 TABLET ORALLY EVERY 8 HRS NOT-TAKING CIPROFLOXACIN HCL 500 MG TABLET 1 TABLET ORALLY EVERY 12 HRS MEDICATION LIST REVIEWED AND RECONCILED WITH THE PATIENT PAST MEDICAL HISTORY ASTHMA GERD DISCOID LUPUS DIVERTICULITIS ULCERATIVE COLITIS HIATAL HERNIA GASTRITIS THORACIC AND LUMBAR PAIN ALLERGIES WHEAT: NAUSEA/VOMITING LACTOSE: NAUSEA/VOMITING - ALLERGY BANDAIDS: RASH - ALLERGY FLEXERIL: HIVES - ALLERGY NITROFURANTOIN: RASH - ALLERGY SULFA (FOR ALLERGY USE ONLY): RASH - ALLERGY SURGICAL HISTORY SPLENECTOMY 1977 CHOLECYSTECTOMY 2006 HYSTERECTOMY AND BLADDER SUSPENSION 2004 FAMILY HISTORY FATHER: , DIAGNOSED WITH DIABETES, HYPERTENSION, OTHER MOTHER: 90 YRS, CONGESTIVE HEART FAILURE, HEART DISEASE 1 SON(S) , 1 DAUGHTER(S) - HEALTHY. DAD-PARKINSONS. SOCIAL HISTORY GENERAL: TOBACCO USE ARE YOU A:NONSMOKER ADDITIONAL FINDINGS: TOBACCO [id number] FOR PERSONAL REASONS DIET: GLUTEN FREE, LACTOSE FREE. LANGUAGE LANGUAGES SPOKEN:EGYPTIAN DOMESTIC VIOLENCE DO YOU FEEL SAFE IN YOUR ENVIRONMENT?YES NEW PATIENT PAIN DIARY FROM 0-10, WHAT LEVEL IS YOUR PAIN TODAY?8 RECREATIONAL DRUG USE DRUG USE?NO EXERCISE: STRETCHES, WALKS. LEARNING BARRIERS / SPECIAL NEEDS BARRIERS TO LEARNING?NO HEARING IMPAIRED?NO VISION IMPAIRED?YES :CORRECTIVE LENSES COGNITIVELY IMPAIRED?NO READINESS TO LEARN?YES LEARNING PREFERENCES?YES :TAPES/VIDEOS, BOOKLETS, HANDOUTS, DEMONSTRATION/VERBAL INSTRUCTION LEARNING CAPABILITIES PRESENT?YES EMOTIONAL BARRIERS?NO SPECIAL DEVICES?NO CIGAR PACKER AND GRADER NEEDED?NO PAIN CLINIC PFS, CLERGY, PUBLIC HEALTH REFERRALS PFS REFERRAL NEEDED?NO CLERGY REFERRAL NEEDED?NO PUBLIC HEALTH REFERRAL NEEDED?NO WAS THE PROVIDER NOTIFIED OF ANY PERTINENT INFO? N/A HAS THE PATIENT BEEN EDUCATED REGARDING HIS/HER PLAN OF CARE?YES HAS THE PATIENT BEEN EDUCATED REGARDING PAIN, THE RISK FOR PAIN, THE IMPORTANCE OF EFFECTIVE PAIN MANAGEMENT, AND THE PAIN ASSESSMENT PROCESS?YES LATEX QUESTIONNAIRE LATEX ALLERGY : HAVE YOU EVER DEVELOPED ANY TYPE OF REACTION AFTER HANDLING LATEX PRODUCTS SUCH RUBBER GLOVES, CONDOMS, DIAPHRAGMS, BALLOONS, SOCKS, OR UNDERWEAR?NO LATEX ALLERGY : HAVE YOU EVER DEVELOPED ANY TYPE OF REACTION DURING OR AFTER DENTAL APPOINTMENT, VAGINAL/RECTAL EXAMINATION, SURGICAL PROCEDURE, OR ANY OTHER EXPOSURE?NO LATEX RISK : HAVE YOU EVER HAD ANY DIFFICULTY BREATHING OR HIVES AFTER EATING OR HANDLING ANY FRUITS, OR VEGETABLES; SUCH KIWI, BANANAS, STONE FRUITS, OR CHESTNUTSNO LATEX RISK : DO YOU HAVE A PREVIOUS PERSONAL HISTORY OF MORE THAN NINE SURGERIES, SPINA BIFIDA, OR REPEATED CATHERTIZATIONS? NO LATEX RISK : ARE YOU FREQUENTLY EXPOSED TO LATEX PRODUCTS IN YOUR OCCUPATION?NO DATE ASKED : 07/03/2018 CAFFEINE CAFFEINE USE?YES HOW OFTEN AND HOW MUCH? 0-1 CUP PER DAY ADVANCE DIRECTIVE ADVANCE DIRECTIVE DISCUSSED WITH PATIENT:YES 05/16/18 PT HAS HCP CHARBEL SANCHEZX [phone] EILEEN DAHL [id number] RELIGIOUS ALCOHOL SCREENING DID YOU HAVE A DRINK CONTAINING ALCOHOL IN THE PAST YEAR?NO POINTS0 INTERPRETATIONNEGATIVE 01/13/18 REVIEWED WITH PT. AD02/28/18 REVIEWED WITH PT. AD05/16/18 1140 REVIEWED WITH PT LASREVIEWED WITH PT 07/03/18 1029 BVREVIEWED WITH PT 09/22/18 1055 BV. HOSPITALIZATION/MAJOR DIAGNOSTIC PROCEDURE SURGERIES/CHILDBIRTH REVIEW OF SYSTEMS REVIEWED BY: PROVIDER: JAVAD VILLALOBOS MD . CONSTITUTIONAL: ANY CHANGE IN YOUR MEDICAL CONDITION? NO . CHILLS NO . FEVER NO . INFECTION: DO YOU HAVE NEW INFECTIONS? NO . DO YOU HAVE HISTORY OF MRSA? NO . MUSCULOSKELETAL: ANY NEW PATTERNS OF PAIN OR NUMBNESS? YES PT REPORTS SHE HAS INCREASED NUMBNESS/CRAMPING AND SPASMS DOWN BOTH LEGS . GASTROENTEROLOGY: ANY NEW CHANGE IN BOWEL CONTROL? NO . GENITOURINARY: ANY NEW CHANGE IN BLADDER CONTROL? NO . IS THERE A CHANCE YOU COULD BE ? NO . HEMATOLOGY/LYMPH: DO YOU TAKE ANY BLOOD THINNERS? (FOR EXAMPLE- COUMADIN, PLAVIX, AGGRENOX, PLATEL, PRADAXA, OR XARELTO) NO . WHEN WAS YOUR LAST DOSE? DATE: TIME: . NEUROLOGY: HAVE YOU FALLEN IN THE PAST 12 MONTHS? YES PT REPORTS SHE FELL IN JUNE DOWN, SHE WAS DESCENDING STAIRS, LEFT LEG "GAVE OUT" AND SHE FELL DOWN BOTTOM TWO STEPS TO THE LANDING. DENIES INJURY . ANY NEW EXTREMITY NUMBNESS OR WEAKNESS? NO . CARDIOLOGY: DO YOU HAVE A PACEMAKER OR DEFIBRILLATOR? NO . RESPIRATORY: HAVE YOU BEEN SICK IN THE PAST WEEK? NO . FEVER NO . FLU LIKE SYMPTOMS? NO . COUGH NO . INTEGUMENTARY: DO YOU HAVE ANY RASHES OR OPEN SORES? NO . ALLERGIC/IMMUNO: ARE YOU ALLERGIC TO IV DYE? NO . ANY NEW ALLERGIES? NO . PSYCHIATRIC: DO YOU HAVE THOUGHTS OF HURTING YOURSELF OR SOMEONE ELSE? NO . ARE YOU ABUSED, NEGLECTED, OR IN AN UNSAFE ENVIRONMENT? NO . ENDOCRINOLOGY: ARE YOU DIABETIC? NO . OTHER: DO YOU NEED ANY PRESCRIPTIONS? NO . IF YES, PLEASE LIST: ____ . ANY NEW PROBLEMS WITH YOUR MEDICATIONS? NO . WHEN DID YOU LAST EAT? ____ . WHEN DID YOU LAST DRINK? ____ . WHAT DID YOU LAST DRINK? ____ . NAME OF PERSON DRIVING YOU HOME? ____ . DO YOU HAVE ANY OTHER QUESTIONS OR CONCERNS NO . VITAL SIGNS WT 135.6 LBS, HT 61 1/2, BMI 25.20 INDEX, BP 122/58 MM HG, HR 58 /MIN, RR 16 /MIN, TEMP 97.7 F, OXYGEN SAT % 99%, NA INITIALS SC 12:26. EXAMINATION GENERAL EXAMINATION: PATIENT IS ALERT O X 3 AND COOPERATIVE. TENDERNESS OVER THE LOW BACK AREA IN THE PARASPINAL MUSCLE GROUP. PAIN INCREASES OVER THE LUMBAR FACET JOINTS WITH EXTENSION AND LATERAL ROTATION OF THE BACK. MRI OF THE LUMBAR SPINE DONE ON 10/10/2018 SHOWS FACET ARTHROPATHY CHANGES AT L4-L5 AND L5-S1. ASSESSMENTS SPONDYLOSIS OF LUMBAR REGION WITHOUT MYELOPATHY OR RADICULOPATHY - M47.816 (PRIMARY) TREATMENT SPONDYLOSIS OF LUMBAR REGION WITHOUT MYELOPATHY OR RADICULOPATHY CLINICAL NOTES: WE DISCUSSED SEVERAL ISSUES WITH MRS. BLAKE'S PAIN MANAGEMENT CASE. DUE TO THE LUMBAR SPONDYLOSIS AND THE PATIENT HAVING AN ACUTE EXACERBATION OF HER CHRONIC PAIN CONDITION, I WOULD LIKE TO MOVE FORWARD WITH A BILATERAL L4-L5, L5-S1 LUMBAR FACET THERAPEUTIC BLOCK. WE DISCUSSED THE BENEFITS, RISKS, AND ALTERNATIVES OF THE INJECTION AND THE PATIENT WOULD LIKE TO PROCEED. THE PATIENT WILL FOLLOW UP IN 2 MONTHS. INSTRUCTIONS WERE GIVEN, QUESTIONS WERE ANSWERED, PATIENT REPORTS UNDERSTANDING AND AGREES WITH THE PLAN. I, FIFI BLACKWOOD, DOCUMENTED THE ABOVE INFORMATION ACTING A SCRIBE FOR DR. VILLALOBOS. I HAVE REVIEWED THE ABOVE DOCUMENT, WRITTEN BY FIFI JESSICA AND I VERIFY THAT IT IS ACCURATE. . PROCEDURES PN WORKMANS' COMP OPINION IN YOUR OPINION, WAS THE INCIDENT THAT THE PATIENT DESCRIBED THE COMPETENT MEDICAL CAUSE OF THIS INJURY/ILLNESS? YES ARE THE PATIENT'S COMPLAINTS CONSISTENT WITH HIS/HER HISTORY OF THE INJURY/ILLNESS? YES IS THE PATIENT'S HISTORY OF THE INJURY/ILLNESS CONSISTENT WITH YOUR OBJECTIVE FINDING? YES WHAT IS THE PERCENTAGE OF TEMPORARY IMPAIRMENT? MODERATE TO MARKED = 66.7% IS THE PATIENT WORKING? YES DOCTOR ON SITE: JAVAD HATHAWAY MD PROCEDURE CODES FA211 ESTABILISHED PATIENT [facility] FACILITY CHARGE G8427 CURRENT MEDS W/DOSAGES DOCUMENTED G8730 PAIN ASSESS POS TOOL F/U PLAN DOC DISPOSITION & COMMUNICATION FOLLOW UP 2 MONTHS (REASON: W/C BACK) ELECTRONICALLY SIGNED BY JAVAD VILLALOBOS MD, MD ON 10/23/2018 AT 01:37 PM EDT DISCLAIMER : THIS IS A VISIT SUMMARY EXTRACTED FROM THE [employer] CHART. IT IS NOT A COPY OF THE [employer] PROGRESS NOTE. MTDD
== END ==
LOC: M PAIN 12:45
PROVIDERS: ATTEND Anesthesiology
DX: M47.816 Spondylosis without myelopathy or radiculopathy, lumbar region (principal); J45.909 Unspecified asthma, uncomplicated; K21.9 Gastro-esophageal reflux disease without esophagitis; L93.0 Discoid lupus erythematosus; K44.9 Diaphragmatic hernia without obstruction or gangrene; K29.70 Gastritis, unspecified, without bleeding; E73.9 Lactose intolerance, unspecified; M54.5 Low back pain; Z91.018 Allergy to other foods; M54.6 Pain in thoracic spine; Z90.49 Acquired absence of other specified parts of digestive tract; Z90.710 Acquired absence of both cervix and uterus; Z88.2 Allergy status to sulfonamides; Z88.8 Allergy status to other drugs, medicaments and biological substances; Z79.899 Other long term (current) drug therapy; Z91.048 Other nonmedicinal substance allergy status

== ENCOUNTER → 2018-12-21 | Outpatient (CLI) | payer OTHER ==
[~2018-12-21] MED LIST changes: +BUPIVACAINE HCL 0.25% 30 ML VIAL As Ordered ONE; +ISOVUE-M 300 61% 15ML VIAL (Q9967) As Ordered ONE; +LIDOCAINE 1% SDV INJ 30 ML VIAL As Ordered ONE; +TRIAMCINOLONE ACETONIDE SUSP 40 MG/ML VIAL (J3301) As Ordered ONE; +diazePAM 5 MG TAB As Ordered ONE; +oxyCODONE 5MG TAB As Ordered ONE
--- NOTE | 2018-12-21 13:22 | REP ---
Partial lumbar spine series: Three views . History: Injection procedure for pain. 42 seconds of fluoroscopy time is reported. Findings: A sequence of three fluoroscopically obtained last image hold procedural spot radiographs of the lumbar spine document needle position and contrast injection associated with injection procedure. Electronically Signed by Bertrand Johnson MD 12/21/2018 01:13 P
--- NOTE | 2018-12-30 01:18 | ECWPNPC ---
PATIENT NAME: ZAKIA BLAKE : 1955 GENDER: FEMALE VISIT DATE: 12/21/2018 DISCHARGE DATE: 12/21/18 1210 VISIT LOCKED DATE TIME: PHYSICIAN: JAVAD VILLALOBOS MD RESOURCE: JAVAD VILLALOBOS MD REASON FOR APPOINTMENT 1. BILATERAL L4-L5, L5-S1 LFBT HISTORY OF PRESENT ILLNESS HISTORY OF PRESENT ILLNESS: PAIN THE PATIENT DESCRIBES THE PAIN... FALL RISK SCREENING: SCREENING :NO FALLS REPORTED IN THE LAST YEAR CURRENT MEDICATIONS TAKING BACLOFEN 10 MG TABLET 1 TAB ORALLY BID PRN FOR SPASMS AND PAIN TAKING BENADRYL 25 MG TABLET 1 TABLET NEEDED ORALLY EVERY 6 HRS TAKING CALCIUM 500 MG TABLET 1 TABLET ORALLY DAILY TAKING VITAMIN D 1000 UNIT CAPSULE 1 CAPSULE ORALLY ONCE A DAY TAKING ST [place] WORT TABLET 2 TABLET ORALLY ONCE A DAY TAKING DESONIDE CREAM 1 APPLICATION TO AFFECTED AREA EXTERNALLY TWICE A DAY TAKING RANITIDINE HCL 150 MG CAPSULE 1 CAP ORALLY TWICE A DAY TAKING SINGULAIR 10 MG TABLET 1 TABLET ORALLY ONCE A DAY TAKING CLARITIN 10 MG TABLET 1 TABLET ORALLY ONCE A DAY NEEDED, NOTES: TAKES NEEDED DISCONTINUED PATANOL SOLUTION 1 DROP INTO AFFECTED EYE OPHTHALMIC DIRECTED DISCONTINUED MAY HAVE - - CBD OIL DISCONTINUED AUGMENTIN 500-125 MG TABLET 1 TABLET ORALLY EVERY 8 HRS DISCONTINUED CIPROFLOXACIN HCL 500 MG TABLET 1 TABLET ORALLY EVERY 12 HRS MEDICATION LIST REVIEWED AND RECONCILED WITH THE PATIENT PAST MEDICAL HISTORY ASTHMA GERD DISCOID LUPUS DIVERTICULITIS ULCERATIVE COLITIS HIATAL HERNIA GASTRITIS THORACIC AND LUMBAR PAIN ALLERGIES WHEAT: NAUSEA/VOMITING LACTOSE: NAUSEA/VOMITING - ALLERGY BANDAIDS: RASH - ALLERGY FLEXERIL: HIVES - ALLERGY NITROFURANTOIN: RASH - ALLERGY SULFA (FOR ALLERGY USE ONLY): RASH - ALLERGY SURGICAL HISTORY SPLENECTOMY 1977 CHOLECYSTECTOMY 2006 HYSTERECTOMY AND BLADDER SUSPENSION 2004 FAMILY HISTORY FATHER: , DIAGNOSED WITH DIABETES, HYPERTENSION, OTHER SPECIFIED CONDITIONS INFLUENCING HEALTH STATUS MOTHER: 90 YRS, CONGESTIVE HEART FAILURE, UNSPECIFIED HEART DISEASE 1 SON(S) , 1 DAUGHTER(S) - HEALTHY. DAD-PARKINSONS. SOCIAL HISTORY GENERAL: TOBACCO USE ARE YOU A:NONSMOKER ADDITIONAL FINDINGS: TOBACCO [id number] FOR PERSONAL REASONS DIET: GLUTEN FREE, LACTOSE FREE. LANGUAGE LANGUAGES SPOKEN:BELARUSIAN DOMESTIC VIOLENCE DO YOU FEEL SAFE IN YOUR ENVIRONMENT?YES NEW PATIENT PAIN DIARY FROM 0-10, WHAT LEVEL IS YOUR PAIN TODAY?8 RECREATIONAL DRUG USE DRUG USE?NO EXERCISE: STRETCHES, WALKS. 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 N/A HAS THE PATIENT BEEN EDUCATED REGARDING HIS/HER PLAN OF CARE?YES HAS THE PATIENT BEEN EDUCATED REGARDING PAIN, THE RISK FOR PAIN, THE IMPORTANCE OF EFFECTIVE PAIN MANAGEMENT, AND THE PAIN ASSESSMENT PROCESS?YES LATEX QUESTIONNAIRE LATEX ALLERGY : HAVE YOU EVER DEVELOPED ANY TYPE OF REACTION AFTER HANDLING LATEX PRODUCTS SUCH RUBBER GLOVES, CONDOMS, DIAPHRAGMS, BALLOONS, SOCKS, OR UNDERWEAR?NO LATEX ALLERGY : HAVE YOU EVER DEVELOPED ANY TYPE OF REACTION DURING OR AFTER DENTAL APPOINTMENT, VAGINAL/RECTAL EXAMINATION, SURGICAL PROCEDURE, OR ANY OTHER EXPOSURE?NO LATEX RISK : HAVE YOU EVER HAD ANY DIFFICULTY BREATHING OR HIVES AFTER EATING OR HANDLING ANY FRUITS, OR VEGETABLES; SUCH KIWI, BANANAS, STONE FRUITS, OR CHESTNUTSNO LATEX RISK : DO YOU HAVE A PREVIOUS PERSONAL HISTORY OF MORE THAN NINE SURGERIES, SPINA BIFIDA, OR REPEATED CATHERIZATIONS? NO LATEX RISK : ARE YOU FREQUENTLY EXPOSED TO LATEX PRODUCTS IN YOUR OCCUPATION?NO DATE ASKED : 12/21/2018 CAFFEINE CAFFEINE USE?YES HOW OFTEN AND HOW MUCH? 0-1 CUP PER DAY ADVANCE DIRECTIVE ADVANCE DIRECTIVE DISCUSSED WITH PATIENT:YES 05/16/18 PT HAS HCP CHARBEL HADLEY [phone] [facility] [id number] CHRISTIAN ALCOHOL SCREENING DID YOU HAVE A DRINK CONTAINING ALCOHOL IN THE PAST YEAR?NO POINTS0 INTERPRETATIONNEGATIVE 01/13/18 REVIEWED WITH PT. AD02/28/18 REVIEWED WITH PT. AD05/16/18 1140 REVIEWED WITH PT LASREVIEWED WITH PT 07/03/18 1029 BVREVIEWED WITH PT 09/22/18 1055 BV. HOSPITALIZATION/MAJOR DIAGNOSTIC PROCEDURE SURGERIES/CHILDBIRTH REVIEW OF SYSTEMS REVIEWED BY: PROVIDER: . CONSTITUTIONAL: ANY CHANGE IN YOUR MEDICAL CONDITION? NO . CHILLS NO . FEVER NO . INFECTION: DO YOU HAVE NEW INFECTIONS? NO . DO YOU HAVE HISTORY OF MRSA? NO . MUSCULOSKELETAL: ANY NEW PATTERNS OF PAIN OR NUMBNESS? NO . GASTROENTEROLOGY: ANY NEW CHANGE IN BOWEL CONTROL? NO . GENITOURINARY: ANY NEW CHANGE IN BLADDER CONTROL? YES,URGENCY WORSE OVER PAST FEW MONTHS. WILL DICUSS AT VISIT WITH PCP . IS THERE A CHANCE YOU COULD BE ? NO . HEMATOLOGY/LYMPH: DO YOU TAKE ANY BLOOD THINNERS? (FOR EXAMPLE- COUMADIN, PLAVIX, AGGRENOX, PLATEL, PRADAXA, OR XARELTO) NO . WHEN WAS YOUR LAST DOSE? DATE: TIME: . NEUROLOGY: HAVE YOU FALLEN IN THE PAST 12 MONTHS? NO . ANY NEW EXTREMITY NUMBNESS OR WEAKNESS? YES . CARDIOLOGY: DO YOU HAVE A PACEMAKER OR DEFIBRILLATOR? NO . RESPIRATORY: HAVE YOU BEEN SICK IN THE PAST WEEK? NO . FEVER NO . FLU LIKE SYMPTOMS? NO . COUGH NO . INTEGUMENTARY: DO YOU HAVE ANY RASHES OR OPEN SORES? NO . ALLERGIC/IMMUNO: ARE YOU ALLERGIC TO IV DYE? NO . ANY NEW ALLERGIES? NO . PSYCHIATRIC: DO YOU HAVE THOUGHTS OF HURTING YOURSELF OR SOMEONE ELSE? NO . ARE YOU ABUSED, NEGLECTED, OR IN AN UNSAFE ENVIRONMENT? NO . ENDOCRINOLOGY: ARE YOU DIABETIC? NO . OTHER: DO YOU NEED ANY PRESCRIPTIONS? NO . IF YES, PLEASE LIST: ____ . ANY NEW PROBLEMS WITH YOUR MEDICATIONS? NO . WHEN DID YOU LAST EAT? ____12/20/18 . WHEN DID YOU LAST DRINK? ____0630 . WHAT DID YOU LAST DRINK? ____WATER . NAME OF PERSON DRIVING YOU HOME? ____APR JOMAR . DO YOU HAVE ANY OTHER QUESTIONS OR CONCERNS NO . VITAL SIGNS WT 137.2 LBS, HT 61 1/2, BMI 25.50 INDEX, BP 138/65 MM HG, HR 53 /MIN, RR 16 /MIN, TEMP 97.7 F, OXYGEN SAT % 97%, SAFE IN ENV? (Y/N) YES, NA INITIALS FL 09:34, REVIEWED BY: ALEJANDRA. ASSESSMENTS SPONDYLOSIS OF LUMBAR REGION WITHOUT MYELOPATHY OR RADICULOPATHY - M47.816 (PRIMARY) SPONDYLOSIS OF LUMBOSACRAL REGION WITHOUT MYELOPATHY OR RADICULOPATHY - M47.817 TREATMENT SPONDYLOSIS OF LUMBAR REGION WITHOUT MYELOPATHY OR RADICULOPATHY [facility] FACET BLOCK (PAIN)[id number] PROCEDURES PN WORKMANS' COMP OPINION IN YOUR OPINION, WAS THE INCIDENT THAT THE PATIENT DESCRIBED THE COMPETENT MEDICAL CAUSE OF THIS INJURY/ILLNESS? YES ARE THE PATIENT'S COMPLAINTS CONSISTENT WITH HIS/HER HISTORY OF THE INJURY/ILLNESS? YES IS THE PATIENT'S HISTORY OF THE INJURY/ILLNESS CONSISTENT WITH YOUR OBJECTIVE FINDING? YES WHAT IS THE PERCENTAGE OF TEMPORARY IMPAIRMENT? MODERATE TO MARKED = 66.7% IS THE PATIENT WORKING? YES DOCTOR ON SITE: JAVAD HATHAWAY MD PN LUMBAR FACET BLOCK THERAPEUTIC PRE PROCEDURE DIAGNOSIS LUMBAR SPONDYLOSIS, LUMBOSACRAL SPONDYLOSIS POST PROCEDURE DIAGNOSIS LUMBAR SPONDYLOSIS, LUMBOSACRAL SPONDYLOSIS PROCEDURE BILATERAL L4-L5 AND L5-S1 LUMBAR FACET THERAPEUTIC BLOCK SURGEON DR. JAVAD VILLALOBOS SUPERVISING LAW ENFORCEMENT ANALYST NONE ANESTHESIA LOCAL PRE PROCEDURE NOTE THE PATIENT HAS A HISTORY OF CHRONIC LOW BACK PAIN. I EVALUATED THE PATIENT AND REVIEWED THE CHART. I WENT OVER THE RISKS, ALTERNATIVES, AND BENEFITS ASSOCIATED WITH THIS PROCEDURE. THE PATIENT WOULD LIKE TO PROCEED AND GIVES CONSENT TO PERFORM THE PROCEDURE. THE PATIENT DENIES UNEXPLAINABLE WEIGHT LOSS, FEVER, CHILLS, OR NEW CHANGES IN URINARY OR BOWEL CONTROL DESCRIPTION OF PROCEDURE THE PATIENT WAS BROUGHT TO THE PROCEDURE ROOM AND PLACED IN THE PRONE POSITION. THE LUMBOSACRAL AREA WAS CLEANED WITH CHLORAPREP SOLUTION AND DRAPED ASEPTICALLY. THE PROCEDURE WAS DONE UNDER STERILE CONDITIONS. I CHECKED LATERALITY AND THE LEVEL WHERE THE PROCEDURE WAS GOING TO BE PERFORMED WITH THE PATIENT AND THE SUPPORTING STAFF AT THE MOMENT OF THE TIME OUT IN THE PROCEDURE ROOM. UNDER FLUOROSCOPIC GUIDANCE, THE TARGET POINT WAS SELECTED AT THE RIGHT AND LEFT L4-L5 AND RIGHT AND LEFT L5-S1 FACET JOINTS. TARGET POINT WAS SELECTED AFTER LATERAL ROTATION AND TILT OF THE MAGNIFIER OF THE C-ARM. LIDOCAINE 0.5% WAS USED TO NUMB THE SKIN AND THE SUBCUTANEOUS TISSUE BELOW IT. SPINAL NEEDLES, 22-GAUGE, WERE ADVANCED UNDER FLUOROSCOPIC GUIDANCE AND FOLLOWING PATIENT FEEDBACK UNTIL THE TARGETS WERE TOUCHED. THE POSITION OF THE NEEDLES WAS VERIFIED WITH AP AND LATERAL VIEWS. AFTER PROPER POSITION OF THE NEEDLES WAS ACHIEVED, ISOVUE-M DYE 30% 0.1 ML WAS INJECTED SHOWING ADEQUATE SPREAD OF THE DYE. THEN A SOLUTION OF 1.9 ML OF BUPIVACAINE 0.125% OF KENALOG 10 MG WAS INJECTED AT EACH SITE. THERE WAS NO EVIDENCE OF BLOOD, PARESTHESIA OR CEREBROSPINAL FLUID DURING THE PROCEDURE. THE PATIENT WAS SENT TO THE RECOVERY ROOM. THE PATIENT WAS MOVING THE EXTREMITIES AND DOING WELL. THERE WAS NO COMPLICATION DURING THE PROCEDURE. FLUOROSCOPY TIME WAS 42 SECONDS POST PROCEDURE NOTE THE PATIENT WILL BE SEEN IN A FOLLOW UP IN THE NEXT FEW WEEKS. INSTRUCTIONS WERE GIVEN, QUESTIONS WERE ANSWERED, AND THE PATIENT EXPRESSED UNDERSTANDING AND AGREES WITH THE PLAN. I, LOUIE PENG, DOCUMENTED THE ABOVE INFORMATION ACTING A SCRIBE FOR DR. VILLALOBOS. I HAVE REVIEWED THE ABOVE DOCUMENT, WRITTEN BY LOUIE SANDYIBArchana AND I VERIFY THAT IT IS ACCURATE. PROCEDURE CODES [id number] INJ PARAVERT F JNT L/S 1 LEV, MODIFIERS: 50 [id number] INJ PARAVERT F JNT L/S 2 LEV, MODIFIERS: 50 [id number] RADXPS IN END [id number] PXD DISPOSITION & COMMUNICATION FOLLOW UP 3 WEEKS ELECTRONICALLY SIGNED BY JAVAD VILLALOBOS MD, MD ON 12/29/2018 AT 05:16 PM EDT DISCLAIMER : THIS IS A VISIT SUMMARY EXTRACTED FROM THE [employer] CHART. IT IS NOT A COPY OF THE [employer] PROGRESS NOTE. MTDD
== END ==
LOC: M PAIN 09:30
PROVIDERS: ATTEND Anesthesiology
DX: M47.816 Spondylosis without myelopathy or radiculopathy, lumbar region (principal); M47.817 Spondylosis without myelopathy or radiculopathy, lumbosacral region; J45.909 Unspecified asthma, uncomplicated; K21.9 Gastro-esophageal reflux disease without esophagitis; L93.0 Discoid lupus erythematosus; K44.9 Diaphragmatic hernia without obstruction or gangrene; K51.90 Ulcerative colitis, unspecified, without complications; Z90.49 Acquired absence of other specified parts of digestive tract; Z79.899 Other long term (current) drug therapy; Z88.2 Allergy status to sulfonamides; Z88.8 Allergy status to other drugs, medicaments and biological substances; Z91.048 Other nonmedicinal substance allergy status; Z91.018 Allergy to other foods
CPT/HCPCS: 64493; 64494; J3301; Q9967

== ENCOUNTER → 2019-01-10 | Outpatient (CLI) | payer OTHER ==
[~2019-01-10] MED LIST changes: -BUPIVACAINE HCL 0.25% 30 ML VIAL As Ordered ONE; -ISOVUE-M 300 61% 15ML VIAL (Q9967) As Ordered ONE; -LIDOCAINE 1% SDV INJ 30 ML VIAL As Ordered ONE; -TRIAMCINOLONE ACETONIDE SUSP 40 MG/ML VIAL (J3301) As Ordered ONE; -diazePAM 5 MG TAB As Ordered ONE; -oxyCODONE 5MG TAB As Ordered ONE
== END ==
LOC: M PAIN 10:00
PROVIDERS: ATTEND Nurse Practitioner Family
DX: M47.816 Spondylosis without myelopathy or radiculopathy, lumbar region (principal); M54.6 Pain in thoracic spine; J45.909 Unspecified asthma, uncomplicated; K21.9 Gastro-esophageal reflux disease without esophagitis; L93.0 Discoid lupus erythematosus; K44.9 Diaphragmatic hernia without obstruction or gangrene; K51.90 Ulcerative colitis, unspecified, without complications; M54.5 Low back pain; Z79.899 Other long term (current) drug therapy; Z88.2 Allergy status to sulfonamides; Z88.8 Allergy status to other drugs, medicaments and biological substances; Z91.018 Allergy to other foods; E73.9 Lactose intolerance, unspecified

== ENCOUNTER → 2019-04-20 | Outpatient (CLI) | payer OTHER ==
--- NOTE | 2019-05-02 03:21 | ECWPNPC ---
PATIENT NAME: ZAKIA BLAKE : 1955 GENDER: FEMALE VISIT DATE: 04/20/2019 DISCHARGE DATE: 04/20/19 1111 VISIT LOCKED DATE TIME: PHYSICIAN: KEN CASTELLANO RESOURCE: KEN CASTELLANO REASON FOR APPOINTMENT 1. W/C-THORACIC/LBP HISTORY OF PRESENT ILLNESS HISTORY OF PRESENT ILLNESS: HERE FOR FOLLOW-UP OF CHRONIC LOW BACK AND THORACIC PAIN. THIS IS A WORK RELATED INJURY WITH DATE OF INJURY 07/28/1998. PATIENT CONTINUES TO DO WELL. HAD BILATERAL THERAPEUTIC FACET BLOCKS ON 12/21/2018 AND ATTRIBUTES DOING WELL TO THAT PROCEDURE. CONTINUES WITH HOME EXERCISE AND STRETCHING. RATING PAIN LEVEL AT 1-2/10 VAS. PAIN THE PATIENT DESCRIBES THE PAIN... FALL RISK SCREENING: SCREENING :NO FALLS REPORTED IN THE LAST YEAR CURRENT MEDICATIONS TAKING BACLOFEN 10 MG TABLET 1 TAB ORALLY BID PRN FOR SPASMS AND PAIN TAKING BENADRYL 25 MG TABLET 1 TABLET NEEDED ORALLY EVERY 6 HRS, NOTES: TAKES NEEDED TAKING CALCIUM 500 MG TABLET 1 TABLET ORALLY DAILY TAKING VITAMIN D 1000 UNIT CAPSULE 1 CAPSULE ORALLY ONCE A DAY TAKING ST [place] WORT TABLET 2 TABLET ORALLY ONCE A DAY TAKING DESONIDE CREAM 1 APPLICATION TO AFFECTED AREA EXTERNALLY TWICE A DAY TAKING SINGULAIR 10 MG TABLET 1 TABLET ORALLY ONCE A DAY TAKING CLARITIN 10 MG TABLET 1 TABLET ORALLY ONCE A DAY NEEDED, NOTES: TAKES NEEDED TAKING TUMS 500 MG TABLET CHEWABLE 1 TABLET ORALLY ONCE A DAY, NOTES: TAKES NEEDED TAKING POTASSIUM 1 TAB ORAL OTC 1 TAB PER DAY NOT-TAKING RANITIDINE HCL 150 MG CAPSULE 1 CAP ORALLY TWICE A DAY MEDICATION LIST REVIEWED AND RECONCILED WITH THE PATIENT PAST MEDICAL HISTORY ASTHMA GERD DISCOID LUPUS DIVERTICULITIS ULCERATIVE COLITIS HIATAL HERNIA GASTRITIS THORACIC AND LUMBAR PAIN ALLERGIES WHEAT: NAUSEA/VOMITING LACTOSE: NAUSEA/VOMITING - ALLERGY BANDAIDS: RASH - ALLERGY FLEXERIL: HIVES - ALLERGY NITROFURANTOIN: RASH - ALLERGY SULFA (FOR ALLERGY USE ONLY): RASH - ALLERGY SURGICAL HISTORY SPLENECTOMY 1978 CHOLECYSTECTOMY 2006 HYSTERECTOMY AND BLADDER SUSPENSION 2004 FAMILY HISTORY FATHER: , DIAGNOSED WITH DIABETES, HYPERTENSION, OTHER SPECIFIED CONDITIONS INFLUENCING HEALTH STATUS MOTHER: 90 YRS, CONGESTIVE HEART FAILURE, UNSPECIFIED HEART DISEASE 1 SON(S) , 1 DAUGHTER(S) - HEALTHY. DAD-PARKINSONS. SOCIAL HISTORY GENERAL: TOBACCO USE ARE YOU A:NONSMOKER ADDITIONAL FINDINGS: TOBACCO [id number] FOR PERSONAL REASONS DIET: GLUTEN FREE, LACTOSE FREE. LANGUAGE LANGUAGES SPOKEN:[place] DOMESTIC VIOLENCE DO YOU FEEL SAFE IN YOUR ENVIRONMENT?YES NEW PATIENT PAIN DIARY FROM 0-10, WHAT LEVEL IS YOUR PAIN TODAY?8 RECREATIONAL DRUG USE DRUG USE?NO EXERCISE: STRETCHES, WALKS. LEARNING BARRIERS / SPECIAL NEEDS BARRIERS TO LEARNING?NO HEARING IMPAIRED?NO VISION IMPAIRED?YES COGNITIVELY IMPAIRED?NO :CORRECTIVE LENSES READINESS TO LEARN?YES LEARNING PREFERENCES?YES :TAPES/VIDEOS, BOOKLETS, HANDOUTS, DEMONSTRATION/VERBAL INSTRUCTION LEARNING CAPABILITIES PRESENT?YES EMOTIONAL BARRIERS?NO SPECIAL DEVICES?NO DOCUMENTATION MANAGER NEEDED?NO PAIN CLINIC PFS, CLERGY, PUBLIC HEALTH REFERRALS PFS REFERRAL NEEDED?NO CLERGY REFERRAL NEEDED?NO PUBLIC HEALTH REFERRAL NEEDED?NO WAS THE PROVIDER NOTIFIED OF ANY PERTINENT INFO? N/A HAS THE PATIENT BEEN EDUCATED REGARDING HIS/HER PLAN OF CARE?YES HAS THE PATIENT BEEN EDUCATED REGARDING PAIN, THE RISK FOR PAIN, THE IMPORTANCE OF EFFECTIVE PAIN MANAGEMENT, AND THE PAIN ASSESSMENT PROCESS?YES LATEX QUESTIONNAIRE LATEX ALLERGY : HAVE YOU EVER DEVELOPED ANY TYPE OF REACTION AFTER HANDLING LATEX PRODUCTS SUCH RUBBER GLOVES, CONDOMS, DIAPHRAGMS, BALLOONS, SOCKS, OR UNDERWEAR?NO LATEX ALLERGY : HAVE YOU EVER DEVELOPED ANY TYPE OF REACTION DURING OR AFTER DENTAL APPOINTMENT, VAGINAL/RECTAL EXAMINATION, SURGICAL PROCEDURE, OR ANY OTHER EXPOSURE?NO LATEX RISK : HAVE YOU EVER HAD ANY DIFFICULTY BREATHING OR HIVES AFTER EATING OR HANDLING ANY FRUITS, OR VEGETABLES; SUCH KIWI, BANANAS, STONE FRUITS, OR CHESTNUTSNO LATEX RISK : DO YOU HAVE A PREVIOUS PERSONAL HISTORY OF MORE THAN NINE SURGERIES, SPINA BIFIDA, OR REPEATED CATHERIZATIONS? NO LATEX RISK : ARE YOU FREQUENTLY EXPOSED TO LATEX PRODUCTS IN YOUR OCCUPATION?NO DATE ASKED : 12/21/2018 CAFFEINE CAFFEINE USE?YES HOW OFTEN AND HOW MUCH? 0-1 CUP PER DAY ADVANCE DIRECTIVE ADVANCE DIRECTIVE DISCUSSED WITH PATIENT:YES 04/20/2019 PT HAS HCP [facility] [phone] TAOIST [id number] QUAKER ALCOHOL SCREENING DID YOU HAVE A DRINK CONTAINING ALCOHOL IN THE PAST YEAR?NO POINTS0 INTERPRETATIONNEGATIVE 01/13/18 REVIEWED WITH PT. AD02/28/18 REVIEWED WITH PT. AD05/16/18 1140 REVIEWED WITH PT LASREVIEWED WITH PT 07/03/18 1029 BVREVIEWED WITH PT 09/22/18 1055 BVREVIEWED WITH PT 01/10/19 1006 NLJREVIEWED WITH PATIENT 04/20/2019 1051 JS. HOSPITALIZATION/MAJOR DIAGNOSTIC PROCEDURE SURGERIES/CHILDBIRTH REVIEW OF SYSTEMS REVIEWED BY: PROVIDER: KEN LEO . CONSTITUTIONAL: ANY CHANGE IN YOUR MEDICAL CONDITION? NO . CHILLS NO . FEVER NO . INFECTION: DO YOU HAVE NEW INFECTIONS? NO . DO YOU HAVE HISTORY OF MRSA? NO . MUSCULOSKELETAL: ANY NEW PATTERNS OF PAIN OR NUMBNESS? YES, STATES SHE IS STILL FEELING BETTER SINCE THE PROCEDURE BUT FEELS THAT HER LUMBAR PAIN STARTING TO RETURN AT TIMES DEPENDING ON HER ACTIVITY . GASTROENTEROLOGY: ANY NEW CHANGE IN BOWEL CONTROL? NO . GENITOURINARY: ANY NEW CHANGE IN BLADDER CONTROL? NO . IS THERE A CHANCE YOU COULD BE ? NO . HEMATOLOGY/LYMPH: DO YOU TAKE ANY BLOOD THINNERS? (FOR EXAMPLE- COUMADIN, PLAVIX, AGGRENOX, PLATEL, PRADAXA, OR XARELTO) NO . WHEN WAS YOUR LAST DOSE? DATE: TIME: . NEUROLOGY: HAVE YOU FALLEN IN THE PAST 12 MONTHS? YES, STATES FALL AROUND THANKSGIVING TIME, TRIPPED WHILE WALKING OUTSIDE TO FEED THE BIRD. STATES AN INCREASE IN LEFT SCIATIC PAIN - WENT TO [facility] AND RECEIVED AN ADJUSTMENT AND HAS BEEN DOING STRETCHES TWICE A DAY AND THE PAIN HAS IMPROVED . ANY NEW EXTREMITY NUMBNESS OR WEAKNESS? NO . CARDIOLOGY: DO YOU HAVE A PACEMAKER OR DEFIBRILLATOR? NO . RESPIRATORY: HAVE YOU BEEN SICK IN THE PAST WEEK? NO . FEVER NO . FLU LIKE SYMPTOMS? NO . COUGH NO . INTEGUMENTARY: DO YOU HAVE ANY RASHES OR OPEN SORES? NO . ALLERGIC/IMMUNO: ARE YOU ALLERGIC TO IV DYE? NO . ANY NEW ALLERGIES? NO . PSYCHIATRIC: DO YOU HAVE THOUGHTS OF HURTING YOURSELF OR SOMEONE ELSE? NO . ARE YOU ABUSED, NEGLECTED, OR IN AN UNSAFE ENVIRONMENT? NO . ENDOCRINOLOGY: ARE YOU DIABETIC? NO . OTHER: DO YOU NEED ANY PRESCRIPTIONS? NO . IF YES, PLEASE LIST: ____ . ANY NEW PROBLEMS WITH YOUR MEDICATIONS? NO . WHEN DID YOU LAST EAT? ____ . WHEN DID YOU LAST DRINK? ____ . WHAT DID YOU LAST DRINK? ____ . NAME OF PERSON DRIVING YOU HOME? ____ . DO YOU HAVE ANY OTHER QUESTIONS OR CONCERNS NO . VITAL SIGNS WT 137.4 LBS, HT 61 1/2, BMI 25.54 INDEX, BP 134/62 MM HG, HR 62 /MIN, RR 18 /MIN, TEMP 96.1 F, OXYGEN SAT % 95%, SAFE IN ENV? (Y/N) YES, NA INITIALS SC 10:48, REVIEWED BY: ESTELLE. EXAMINATION GENERAL EXAMINATION: GENERAL AWAKE,ALERT ,PLEASANT . PSYCH AFFECT NORMAL . LUNGS: LUNG ADAMS ARE CLEAR TO AUSCULTATION BILATERALLY. GOOD MOVEMENT OF AIR . HEART: S1, S2 IN A REGULAR RATE AND RHYTHM. NO SIGNIFICANT MURMURS, RUBS OR GALLOPS NOTED . ASSESSMENTS SPONDYLOSIS OF LUMBAR REGION WITHOUT MYELOPATHY OR RADICULOPATHY - M47.816 (PRIMARY) PAIN IN THORACIC SPINE - M54.6 TREATMENT SPONDYLOSIS OF LUMBAR REGION WITHOUT MYELOPATHY OR RADICULOPATHY NOTES: CONTINUE HOME EXERCISE AND STRETCHING. PROCEDURES PN WORKMANS' COMP OPINION IN YOUR OPINION, WAS THE INCIDENT THAT THE PATIENT DESCRIBED THE COMPETENT MEDICAL CAUSE OF THIS INJURY/ILLNESS? YES ARE THE PATIENT'S COMPLAINTS CONSISTENT WITH HIS/HER HISTORY OF THE INJURY/ILLNESS? YES IS THE PATIENT'S HISTORY OF THE INJURY/ILLNESS CONSISTENT WITH YOUR OBJECTIVE FINDING? YES WHAT IS THE PERCENTAGE OF TEMPORARY IMPAIRMENT? MODERATE TO MARKED = 66.7% IS THE PATIENT WORKING? YES DOCTOR ON SITE: JAVAD HATHAWAY MD PROCEDURE CODES FA211 ESTABILISHED PATIENT [facility] FACILITY CHARGE DISPOSITION & COMMUNICATION FOLLOW UP 3 MONTHS (REASON: W/C LOW BACK PAIN) ELECTRONICALLY SIGNED BY FELIPA WOOD ON 05/01/2019 AT 03:22 PM EST DISCLAIMER : THIS IS A VISIT SUMMARY EXTRACTED FROM THE [employer] CHART. IT IS NOT A COPY OF THE [employer] PROGRESS NOTE. SACHA
== END ==
LOC: M PAIN 10:30
PROVIDERS: ATTEND Nurse Practitioner Family
DX: M47.816 Spondylosis without myelopathy or radiculopathy, lumbar region (principal); M54.6 Pain in thoracic spine; G89.29 Other chronic pain; J45.909 Unspecified asthma, uncomplicated; Z88.2 Allergy status to sulfonamides; Z88.8 Allergy status to other drugs, medicaments and biological substances; Z91.018 Allergy to other foods; Z91.09 Other allergy status, other than to drugs and biological substances; Z79.899 Other long term (current) drug therapy

== ENCOUNTER → 2019-07-13 | Outpatient (CLI) | payer OTHER ==
--- NOTE | 2019-07-14 03:49 | ECWPNPC ---
PATIENT NAME: ZAKIA BLAKE : 1955 GENDER: FEMALE VISIT DATE: 07/13/2019 DISCHARGE DATE: 07/13/19 1014 VISIT LOCKED DATE TIME: PHYSICIAN: KEN CASTELLANO RESOURCE: KEN CASTELLANO REASON FOR APPOINTMENT 1. W/C, 3 MONTHS HISTORY OF PRESENT ILLNESS HISTORY OF PRESENT ILLNESS: HERE FOR FOLLOW-UP OF CHRONIC LOW BACK PAIN. THIS IS A WORK RELATED INJURY. REPORTING AN INCREASE IN LOW BACK PAIN OVER THE PAST MONTH. PAIN IS AGGRAVATED BY RANGE OF JOINT MOTION OF THE SPINE. PAIN IS LOCATED ACROSS THE LOWER BACK. REPORTS WORST PAIN ON THE LEFT LOW BACK COMPARED TO RIGHT. RATING PAIN LEVEL A 7/10 VAS. HAS RESPONDED WELL TO LUMBAR FACET BLOCK, THERAPEUTIC IN THE PAST, LAST ONE BEING DONE IN 2018. PAIN THE PATIENT DESCRIBES THE PAIN... FALL RISK SCREENING: SCREENING :NO FALLS REPORTED IN THE LAST YEAR CURRENT MEDICATIONS TAKING BACLOFEN 10 MG TABLET 1 TAB ORALLY BID PRN FOR SPASMS AND PAIN TAKING BENADRYL 25 MG TABLET 1 TABLET NEEDED ORALLY EVERY 6 HRS, NOTES: TAKES NEEDED TAKING CALCIUM 500 MG TABLET 1 TABLET ORALLY DAILY TAKING VITAMIN D 1000 UNIT CAPSULE 1 CAPSULE ORALLY ONCE A DAY TAKING ST [place] WORT TABLET 2 TABLET ORALLY ONCE A DAY TAKING DESONIDE CREAM 1 APPLICATION TO AFFECTED AREA EXTERNALLY TWICE A DAY TAKING SINGULAIR 10 MG TABLET 1 TABLET ORALLY ONCE A DAY TAKING CLARITIN 10 MG TABLET 1 TABLET ORALLY ONCE A DAY NEEDED, NOTES: TAKES NEEDED TAKING POTASSIUM 1 TAB ORAL OTC 1 TAB PER DAY TAKING FAMOTIDINE 10 MG TABLET 1 TABLET NEEDED ORALLY TWICE A DAY NOT-TAKING TUMS 500 MG TABLET CHEWABLE 1 TABLET ORALLY ONCE A DAY, NOTES: TAKES NEEDED NOT-TAKING RANITIDINE HCL 150 MG CAPSULE 1 CAP ORALLY TWICE A DAY MEDICATION LIST REVIEWED AND RECONCILED WITH THE PATIENT PAST MEDICAL HISTORY ASTHMA GERD DISCOID LUPUS DIVERTICULITIS ULCERATIVE COLITIS HIATAL HERNIA GASTRITIS THORACIC AND LUMBAR PAIN ALLERGIES WHEAT: NAUSEA/VOMITING LACTOSE: NAUSEA/VOMITING - ALLERGY BANDAIDS: RASH - ALLERGY FLEXERIL: HIVES - ALLERGY NITROFURANTOIN: RASH - ALLERGY SULFA (FOR ALLERGY USE ONLY): RASH - ALLERGY SURGICAL HISTORY SPLENECTOMY 1978 CHOLECYSTECTOMY 2006 HYSTERECTOMY AND BLADDER SUSPENSION 2004 FAMILY HISTORY FATHER: , DIAGNOSED WITH DIABETES, HYPERTENSION, OTHER SPECIFIED CONDITIONS INFLUENCING HEALTH STATUS MOTHER: 90 YRS, CONGESTIVE HEART FAILURE, UNSPECIFIED HEART DISEASE 1 SON(S) , 1 DAUGHTER(S) - HEALTHY. DAD-PARKINSONS. SOCIAL HISTORY GENERAL: TOBACCO USE ARE YOU A:NONSMOKER ADDITIONAL FINDINGS: TOBACCO [id number] FOR PERSONAL REASONS DIET: GLUTEN FREE, LACTOSE FREE. LANGUAGE LANGUAGES SPOKEN:OMANI DOMESTIC VIOLENCE DO YOU FEEL SAFE IN YOUR ENVIRONMENT?YES NEW PATIENT PAIN DIARY TODAY'S VISITNOTES PATIENT DESCRIBES PAIN :ACHING, HAVE IT ALL THE TIME, SHARP, STABBING SHARP AND STABBING WITH SOME MOVEMENTS, ACHING ALL THE TIME, WAKING UP FROM PAIN IN HER SLEEP FROM 0-10, WHAT LEVEL IS YOUR PAIN TODAY?7 PRECIPITATING FACTORS MOVEMENT MAKES IT WORSE ALLEVIATING FACTORS STRETCHING HELPS SOMETIMES, BACLOFEN DOES HELP WHEN SHE USES PRN RECREATIONAL DRUG USE DRUG USE?NO EXERCISE: STRETCHES, WALKS. 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 N/A HAS THE PATIENT BEEN EDUCATED REGARDING HIS/HER PLAN OF CARE?YES HAS THE PATIENT BEEN EDUCATED REGARDING PAIN, THE RISK FOR PAIN, THE IMPORTANCE OF EFFECTIVE PAIN MANAGEMENT, AND THE PAIN ASSESSMENT PROCESS?YES LATEX QUESTIONNAIRE LATEX ALLERGY : HAVE YOU EVER DEVELOPED ANY TYPE OF REACTION AFTER HANDLING LATEX PRODUCTS SUCH RUBBER GLOVES, CONDOMS, DIAPHRAGMS, BALLOONS, SOCKS, OR UNDERWEAR?NO LATEX ALLERGY : HAVE YOU EVER DEVELOPED ANY TYPE OF REACTION DURING OR AFTER DENTAL APPOINTMENT, VAGINAL/RECTAL EXAMINATION, SURGICAL PROCEDURE, OR ANY OTHER EXPOSURE?NO LATEX RISK : HAVE YOU EVER HAD ANY DIFFICULTY BREATHING OR HIVES AFTER EATING OR HANDLING ANY FRUITS, OR VEGETABLES; SUCH KIWI, BANANAS, STONE FRUITS, OR CHESTNUTSNO LATEX RISK : DO YOU HAVE A PREVIOUS PERSONAL HISTORY OF MORE THAN NINE SURGERIES, SPINA BIFIDA, OR REPEATED CATHERIZATIONS? NO LATEX RISK : ARE YOU FREQUENTLY EXPOSED TO LATEX PRODUCTS IN YOUR OCCUPATION?NO DATE ASKED : 07/13/2019 CAFFEINE CAFFEINE USE?YES HOW OFTEN AND HOW MUCH? 0-1 CUP PER DAY ADVANCE DIRECTIVE ADVANCE DIRECTIVE DISCUSSED WITH PATIENT:YES 04/20/2019 PT HAS HCP [facility] [phone] [id number] SPIRITISM ALCOHOL SCREENING DID YOU HAVE A DRINK CONTAINING ALCOHOL IN THE PAST YEAR?NO POINTS0 INTERPRETATIONNEGATIVE 01/13/18 REVIEWED WITH PT. AD02/28/18 REVIEWED WITH PT. AD05/16/18 1140 REVIEWED WITH PT LASREVIEWED WITH PT 07/03/18 1029 BVREVIEWED WITH PT 09/22/18 1055 BVREVIEWED WITH PT 01/10/19 1006 NLJREVIEWED WITH PATIENT 04/20/2019 1051 JS. HOSPITALIZATION/MAJOR DIAGNOSTIC PROCEDURE SURGERIES/CHILDBIRTH REVIEW OF SYSTEMS REVIEWED BY: PROVIDER: KEN LEO . CONSTITUTIONAL: ANY CHANGE IN YOUR MEDICAL CONDITION? NO . CHILLS NO . FEVER NO . INFECTION: DO YOU HAVE NEW INFECTIONS? NO . DO YOU HAVE HISTORY OF MRSA? NO . MUSCULOSKELETAL: ANY NEW PATTERNS OF PAIN OR NUMBNESS? NO . GASTROENTEROLOGY: ANY NEW CHANGE IN BOWEL CONTROL? NO . GENITOURINARY: ANY NEW CHANGE IN BLADDER CONTROL? NO . IS THERE A CHANCE YOU COULD BE ? NO . HEMATOLOGY/LYMPH: DO YOU TAKE ANY BLOOD THINNERS? (FOR EXAMPLE- COUMADIN, PLAVIX, AGGRENOX, PLATEL, PRADAXA, OR XARELTO) NO . WHEN WAS YOUR LAST DOSE? DATE: TIME: . NEUROLOGY: HAVE YOU FALLEN IN THE PAST 12 MONTHS? NO . ANY NEW EXTREMITY NUMBNESS OR WEAKNESS? NO . CARDIOLOGY: DO YOU HAVE A PACEMAKER OR DEFIBRILLATOR? NO . RESPIRATORY: HAVE YOU BEEN SICK IN THE PAST WEEK? NO . FEVER NO . FLU LIKE SYMPTOMS? NO . COUGH NO . INTEGUMENTARY: DO YOU HAVE ANY RASHES OR OPEN SORES? NO . ALLERGIC/IMMUNO: ARE YOU ALLERGIC TO IV DYE? NO . ANY NEW ALLERGIES? NO . PSYCHIATRIC: DO YOU HAVE THOUGHTS OF HURTING YOURSELF OR SOMEONE ELSE? NO . ARE YOU ABUSED, NEGLECTED, OR IN AN UNSAFE ENVIRONMENT? NO . ENDOCRINOLOGY: ARE YOU DIABETIC? NO . OTHER: DO YOU NEED ANY PRESCRIPTIONS? YES . IF YES, PLEASE LIST: BACLOFEN . ANY NEW PROBLEMS WITH YOUR MEDICATIONS? NO . WHEN DID YOU LAST EAT? ____ . WHEN DID YOU LAST DRINK? ____ . WHAT DID YOU LAST DRINK? ____ . NAME OF PERSON DRIVING YOU HOME? ____ . DO YOU HAVE ANY OTHER QUESTIONS OR CONCERNS NO . VITAL SIGNS WT 139.6 LBS, HT 61 1/2, BMI 25.95 INDEX, BP 137/63 MM HG, HR 67 /MIN, RR 18 /MIN, TEMP 97.6 F, OXYGEN SAT % 96%, SAFE IN ENV? (Y/N) YES, NA INITIALS [id number], REVIEWED BY: KERMIT. EXAMINATION GENERAL EXAMINATION: GENERAL AWAKE,ALERT ,PLEAASANT . PSYCH AFFECT NORMAL . LUNGS: LUNG ADAMS ARE CLEAR TO AUSCULTATION BILATERALLY. GOOD MOVEMENT OF AIR . HEART: S1, S2 IN A REGULAR RATE AND RHYTHM. NO SIGNIFICANT MURMURS, RUBS OR GALLOPS NOTED . LUMBAR:PALPATION:TENDER OVER BILAT. L4/5-L5/S1 LUMBAR FACETS WITH FACET LOADING.. DIAGNOSTIC TESTS REVIEWEDMRI L/S SPINE 10/2018 . ASSESSMENTS SPONDYLOSIS OF LUMBAR REGION WITHOUT MYELOPATHY OR RADICULOPATHY - M47.816 (PRIMARY) TREATMENT SPONDYLOSIS OF LUMBAR REGION WITHOUT MYELOPATHY OR RADICULOPATHY REFILL BACLOFEN TABLET, 10 MG, 1 TAB, ORALLY, BID PRN FOR SPASMS AND PAIN, 30 DAY(S), 60, REFILLS 1 NOTES: BILATERAL L4-5, L5-S1 LUMBAR FACET BLOCK, THERAPEUTIC-WORKMEN'S COMP. OTHERS NOTES: FACET JOINT INJECTION MATERIAL WAS PRINTED. PROCEDURES PN WORKMANS' COMP OPINION IN YOUR OPINION, WAS THE INCIDENT THAT THE PATIENT DESCRIBED THE COMPETENT MEDICAL CAUSE OF THIS INJURY/ILLNESS? YES ARE THE PATIENT'S COMPLAINTS CONSISTENT WITH HIS/HER HISTORY OF THE INJURY/ILLNESS? YES IS THE PATIENT'S HISTORY OF THE INJURY/ILLNESS CONSISTENT WITH YOUR OBJECTIVE FINDING? YES WHAT IS THE PERCENTAGE OF TEMPORARY IMPAIRMENT? MODERATE TO MARKED = 66.7% IS THE PATIENT WORKING? YES DOCTOR ON SITE: JAVAD HATHAWAY MD PREVENTIVE MEDICINE PAIN CLINIC TEACHING: PROCEDURE TEACHING FACET JOINT INJECTION MATERIAL PRINTED AND REVIEWED WITH PT. PT VERBALIZES UNDERSTANDING OF PROCEDURE AND OF PRE PROEDURE INSTRUCTIONS REVIEWED. 07/13/2019 1015 KERMIT. PROCEDURE CODES FA211 ESTABILISHED PATIENT [facility] FACILITY CHARGE DISPOSITION & COMMUNICATION FOLLOW UP POST (REASON: BILATERAL L4-5, L5-S1 LUMBAR FACET BLOCK, THERAPEUTIC-WORKMEN'S COMP) ELECTRONICALLY SIGNED BY FELIPA WOOD ON 07/13/2019 AT 01:17 PM EDT DISCLAIMER : THIS IS A VISIT SUMMARY EXTRACTED FROM THE [employer] CHART. IT IS NOT A COPY OF THE [employer] PROGRESS NOTE. SACHA
== END ==
LOC: M PAIN 09:00
PROVIDERS: ATTEND Nurse Practitioner Family
DX: M47.816 Spondylosis without myelopathy or radiculopathy, lumbar region (principal); Z79.891 Long term (current) use of opiate analgesic; Z88.2 Allergy status to sulfonamides; Z88.8 Allergy status to other drugs, medicaments and biological substances; Z91.048 Other nonmedicinal substance allergy status; Z91.018 Allergy to other foods

== ENCOUNTER → 2019-09-01 | Outpatient (CLI) | payer OTHER | LOC: M LABSMTC 09:37 | PROVIDERS: ATTEND Anesthesiology | DX: Z03.818 Encounter for observation for suspected exposure to other biological agents ruled out (principal); Z11.59 Encounter for screening for other viral diseases ==

== ENCOUNTER → 2019-09-04 | Outpatient (CLI) | payer OTHER ==
[~2019-09-04] MED LIST changes: +BUPIVACAINE HCL 0.25% 30ML VIAL As Ordered ONE; +ISOVUE-M 300 61% 15ML VIAL As Ordered ONE; +LIDOCAINE 1% SDV 30ML VIAL As Ordered ONE; +dexameTHASONE 10MG/1ML VIAL PRES.FREE (J1100 PER 1MG) As Ordered ONE; +diazePAM 5 MG TAB As Ordered ONE; +oxyCODONE 5MG TAB As Ordered ONE
--- NOTE | 2019-09-04 13:24 | REP ---
Partial lumbar spine series: Two views . History: Injection procedure for pain. 15 seconds of fluoroscopy time is reported. Findings: A sequence of two fluoroscopically obtained last image hold procedural spot radiographs of the lumbar spine document needle position and contrast injection associated with injection procedure. Electronically Signed by Bertrand Johnson MD 09/04/2019 01:16 P
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
== END ==
LOC: M PAIN 11:15
PROVIDERS: ATTEND Anesthesiology
DX: M47.816 Spondylosis without myelopathy or radiculopathy, lumbar region (principal); M47.817 Spondylosis without myelopathy or radiculopathy, lumbosacral region
CPT/HCPCS: 64493; 64494; J1100; Q9967

== ENCOUNTER → 2019-09-20 | Outpatient (CLI) | payer OTHER ==
[~2019-09-20] MED LIST changes: -BUPIVACAINE HCL 0.25% 30ML VIAL As Ordered ONE; -ISOVUE-M 300 61% 15ML VIAL As Ordered ONE; -LIDOCAINE 1% SDV 30ML VIAL As Ordered ONE; -dexameTHASONE 10MG/1ML VIAL PRES.FREE (J1100 PER 1MG) As Ordered ONE; -diazePAM 5 MG TAB As Ordered ONE; -oxyCODONE 5MG TAB As Ordered ONE
--- NOTE | 2019-09-21 01:50 | ECWPNPC ---
PATIENT NAME: ZAKIA BLAKE : 1955 GENDER: FEMALE VISIT DATE: 09/20/2019 DISCHARGE DATE: 09/20/19 1023 VISIT LOCKED DATE TIME: PHYSICIAN: KEN CASTELLANO RESOURCE: KEN CASTELLANO REASON FOR APPOINTMENT 1. W/C POST LFBT SADE L5-5, L5-S1 -IN OFFICE HISTORY OF PRESENT ILLNESS GENERAL: HERE FOR POST PROCEDURE FOLLOW-UP. HAD BILATERAL LUMBAR FACET BLOCK, THERAPEUTIC L4-5, L5-S1 ON 09/04/2019. REPORTING GREATER THAN 80% REDUCTION IN PAIN POST PROCEDURE THAT CONTINUES TODAY. REPORTS IMPROVED SLEEP SINCE PROCEDURE. DISCUSSED MEDICATION AND TREATMENT PLAN. PAIN IS DUE TO A WORK RELATED INJURY WITH DATE OF INJURY 07/28/1998. -. FALL RISK SCREENING: SCREENING :ONE FALL WITHOUT INJURY IN THE PAST YEAR PAIN SCREENING: PATIENT HAS A COMPLAINT OF ACUTE OR CHRONIC PAIN :YES 09/20/19 INTENSITY OF PAIN (SCALE OF 1 TO 10):1 WHAT DOES YOUR PAIN FEEL LIKE:ACHING, INTERMITTENT PAIN IS INCREASED BY: SITTING, LIFTING PAIN IS DECREASED BY: REST, HEAT NURSING NOTE: -. PAIN CENTER INTAKE QUESTIONS: DO YOU HAVE A HISTORY OF MRSA? :NO DO YOU TAKE A BLOOD THINNERS? :NO DO YOU HAVE ANY BLEEDING DISORDERS? :NO ANY NEW NUMBNESS OR WEAKNESS IN YOUR LEGS OR ARMS? :NO ANY PACEMAKER,DEFIBRILLATOR, OR DORSAL COLUMN STIMULATOR? :NO DO YOU HAVE ANY RASHES OR OPEN SORES? :YES LUPUS ARE YOU ALLERGIC TO IV DYE? :NO ARE YOU DIABETIC? :NO ANY NEW PROBLEMS WITH YOUR MEDICATIONS? :NO HAVE YOU RECEIVED A VACCINE IN THE PAST 30 DAYS? :NO DO YOU PLAN TO RECEIVE A VACCINE IN THE NEXT 21 DAYS? :NO DO YOU NEED ANY PRESCRIPTION? :NO DO YOU TAKE ANY IMMUNOSUPPRESSIVE MEDICATIONS? :NO IS THERE A CHANCE YOU COULD BE ? :NO ARE YOU BREAST FEEDING? :NO CURRENT MEDICATIONS TAKING BENADRYL 25 MG TABLET 1 TABLET NEEDED ORALLY EVERY 6 HRS TAKING CALCIUM 500 MG TABLET 1 TABLET ORALLY DAILY TAKING VITAMIN D 1000 UNIT CAPSULE 1 CAPSULE ORALLY ONCE A DAY TAKING ST [place] WORT TABLET 2 TABLET ORALLY ONCE A DAY TAKING DESONIDE CREAM 1 APPLICATION TO AFFECTED AREA EXTERNALLY TWICE A DAY TAKING SINGULAIR 10 MG TABLET 1 TABLET ORALLY ONCE A DAY TAKING CLARITIN 10 MG TABLET 1 TABLET ORALLY ONCE A DAY NEEDED TAKING POTASSIUM 1 TAB ORAL OTC 1 TAB PER DAY TAKING FAMOTIDINE 10 MG TABLET 1 TABLET NEEDED ORALLY TWICE A DAY TAKING BACLOFEN 10 MG TABLET 1 TAB ORALLY BID PRN FOR SPASMS AND PAIN NOT-TAKING TUMS 500 MG TABLET CHEWABLE 1 TABLET ORALLY ONCE A DAY, NOTES: TAKES NEEDED NOT-TAKING RANITIDINE HCL 150 MG CAPSULE 1 CAP ORALLY TWICE A DAY MEDICATION LIST REVIEWED AND RECONCILED WITH THE PATIENT PAST MEDICAL HISTORY ASTHMA GERD DISCOID LUPUS DIVERTICULITIS ULCERATIVE COLITIS HIATAL HERNIA GASTRITIS THORACIC AND LUMBAR PAIN HEREDITARY SPHEROCYTOSIS ALLERGIES WHEAT: NAUSEA/VOMITING LACTOSE: NAUSEA/VOMITING - ALLERGY BANDAIDS: RASH - ALLERGY FLEXERIL: HIVES - ALLERGY NITROFURANTOIN: RASH - ALLERGY SULFA (FOR ALLERGY USE ONLY): RASH - ALLERGY SURGICAL HISTORY SPLENECTOMY 1977 CHOLECYSTECTOMY 2006 HYSTERECTOMY AND BLADDER SUSPENSION 2004 FAMILY HISTORY FATHER: , DIAGNOSED WITH DIABETES, HYPERTENSION, OTHER SPECIFIED CONDITIONS INFLUENCING HEALTH STATUS MOTHER: 90 YRS, CONGESTIVE HEART FAILURE, UNSPECIFIED HEART DISEASE 1 SON(S) , 1 DAUGHTER(S) - HEALTHY. DAD-PARKINSONSFATHER AND PATERNAL GRANDMOTHER CARRIERS OF HEREDITARY SPHEROCYTOSIS. SOCIAL HISTORY GENERAL: TOBACCO USE ARE YOU A:NONSMOKER ADDITIONAL FINDINGS: TOBACCO [id number] FOR PERSONAL REASONS LATEX QUESTIONNAIRE DATE ASKED : 08/31/2019 ALCOHOL SCREENING DID YOU HAVE A DRINK CONTAINING ALCOHOL IN THE PAST YEAR?NO POINTS0 INTERPRETATIONNEGATIVE RECREATIONAL DRUG USE DRUG USE?NO PATIENT DENIES ABUSE OR MISSUSED OF ANY MEDICATION DENIES 09/04/19 CAFFEINE CAFFEINE USE?YES HOW OFTEN AND HOW MUCH? 0-1 CUP PER DAY PRESYBETERIAN [id number] SHINTO LANGUAGE LANGUAGES SPOKEN:KAZAKH LEARNING BARRIERS / SPECIAL NEEDS BARRIERS TO LEARNING?NO HEARING IMPAIRED?NO VISION IMPAIRED?YES COGNITIVELY IMPAIRED?NO :CORRECTIVE LENSES READINESS TO LEARN?YES LEARNING PREFERENCES?YES :TAPES/VIDEOS, BOOKLETS, HANDOUTS, DEMONSTRATION/VERBAL INSTRUCTION LEARNING CAPABILITIES PRESENT?YES EMOTIONAL BARRIERS?NO SPECIAL DEVICES?NO WILDLIFE BIOSTATION RESEARCH ECOLOGIST NEEDED?NO DOMESTIC VIOLENCE DO YOU FEEL SAFE IN YOUR ENVIRONMENT?YES DIET: GLUTEN FREE, LACTOSE FREE. EXERCISE: STRETCHES, WALKS. NEW PATIENT PAIN DIARY TODAY'S VISITNOTES 09/04/19 PATIENT DESCRIBES PAIN :ACHING, HAVE IT ALL THE TIME, SHARP, STABBING SHARP AND STABBING WITH SOME MOVEMENTS, ACHING ALL THE TIME, WAKING UP FROM PAIN IN HER SLEEP FROM 0-10, WHAT LEVEL IS YOUR PAIN TODAY?8 PRECIPITATING FACTORS MOVEMENT MAKES IT WORSE ALLEVIATING FACTORS STRETCHING HELPS SOMETIMES, BACLOFEN DOES HELP WHEN SHE USES PRN PAIN CLINIC PFS, CLERGY, PUBLIC HEALTH REFERRALS PFS REFERRAL NEEDED?NO CLERGY REFERRAL NEEDED?NO PUBLIC HEALTH REFERRAL NEEDED?NO WAS THE PROVIDER NOTIFIED OF ANY PERTINENT INFO? N/A HAS THE PATIENT BEEN EDUCATED REGARDING HIS/HER PLAN OF CARE?YES HAS THE PATIENT BEEN EDUCATED REGARDING PAIN, THE RISK FOR PAIN, THE IMPORTANCE OF EFFECTIVE PAIN MANAGEMENT, AND THE PAIN ASSESSMENT PROCESS?YES ADVANCE DIRECTIVE ADVANCE DIRECTIVE DISCUSSED WITH PATIENT:YES PT HAS HCP [facility] [phone] 01/13/18 REVIEWED WITH PT. AD02/28/18 REVIEWED WITH PT. AD05/16/18 1140 REVIEWED WITH PT LASREVIEWED WITH PT 07/03/18 1029 BVREVIEWED WITH PT 09/22/18 1055 BVREVIEWED WITH PT 01/10/19 1006 NLJREVIEWED WITH PATIENT 04/20/2019 1051 JS. HOSPITALIZATION/MAJOR DIAGNOSTIC PROCEDURE SURGERIES/CHILDBIRTH REVIEW OF SYSTEMS CONSTITUTIONAL: ANY RECENT FEVER OR ILLNESS NO . CHILLS NO . GASTROENTEROLOGY: BOWEL INCONTINENCE NO . ANY NEW CHANGE IN BOWEL CONTROL? NO . ABDOMINAL PAIN NO . CONSTIPATION NO . GENITOURINARY: ANY NEW CHANGE IN BLADDER CONTROL? NO . IS THERE A CHANCE YOU COULD BE ? NO . URINARY INCONTINENCE NO . CARDIOLOGY: CHEST PRESSURE NO . CHEST PAIN NO . RESPIRATORY: COUGH NO . SHORTNESS OF BREATH NO . VITAL SIGNS WT 141.4 LBS, HT 61 1/2, BMI 26.28 INDEX, BP 128/62 MM HG, HR 72 /MIN, RR 16 /MIN, TEMP 98.1 F, OXYGEN SAT % 96%, NA INITIALS TL 0950. EXAMINATION GENERAL EXAMINATION: GENERAL AWAKE,ALERT ,PLEASANT . PSYCH AFFECT NORMAL . LUNGS: LUNG ADAMS ARE CLEAR TO AUSCULTATION BILATERALLY. GOOD MOVEMENT OF AIR . HEART: S1, S2 IN A REGULAR RATE AND RHYTHM. NO SIGNIFICANT MURMURS, RUBS OR GALLOPS NOTED . ASSESSMENTS SPONDYLOSIS OF LUMBAR REGION WITHOUT MYELOPATHY OR RADICULOPATHY - M47.816 (PRIMARY) PAIN IN THORACIC SPINE - M54.6 PROCEDURES PN WORKMANS' COMP OPINION IN YOUR OPINION, WAS THE INCIDENT THAT THE PATIENT DESCRIBED THE COMPETENT MEDICAL CAUSE OF THIS INJURY/ILLNESS? YES ARE THE PATIENT'S COMPLAINTS CONSISTENT WITH HIS/HER HISTORY OF THE INJURY/ILLNESS? YES IS THE PATIENT'S HISTORY OF THE INJURY/ILLNESS CONSISTENT WITH YOUR OBJECTIVE FINDING? YES WHAT IS THE PERCENTAGE OF TEMPORARY IMPAIRMENT? MODERATE TO MARKED = 66.7% IS THE PATIENT WORKING? NO DOCTOR ON SITE: JAVAD HATHAWAY MD PROCEDURE CODES FA211 ESTABILISHED PATIENT [facility] CHARGE DISPOSITION & COMMUNICATION FOLLOW UP 3 MONTHS (REASON: WORKMEN'S COMP THORACIC BACK PAIN, LOW BACK PAIN) ELECTRONICALLY SIGNED BY FELIPA WOOD ON 09/20/2019 AT 10:26 AM EDT DISCLAIMER : THIS IS A VISIT SUMMARY EXTRACTED FROM THE [employer] CHART. IT IS NOT A COPY OF THE [employer] PROGRESS NOTE. SACHA
== END ==
LOC: M PAIN 09:45
PROVIDERS: ATTEND Nurse Practitioner Family
DX: M47.816 Spondylosis without myelopathy or radiculopathy, lumbar region (principal); M54.6 Pain in thoracic spine

== ENCOUNTER → 2019-12-21 | Outpatient (CLI) | payer OTHER | LOC: M PAIN 09:55 | PROVIDERS: ATTEND Nurse Practitioner Family | DX: M79.18 Myalgia, other site (principal); M47.816 Spondylosis without myelopathy or radiculopathy, lumbar region ==

== ENCOUNTER → 2020-03-21 | Outpatient (CLI) | payer OTHER ==
--- NOTE | 2020-03-26 06:47 | ECWPNPC ---
PATIENT NAME: ZAKIA BLAKE : 1955 GENDER: FEMALE VISIT DATE: 03/21/2020 DISCHARGE DATE: 03/21/20 1209 VISIT LOCKED DATE TIME: PHYSICIAN: KEN CASTELLANO RESOURCE: KEN CASTELLANO REASON FOR APPOINTMENT 1. WC/ THORACIC LBP HISTORY OF PRESENT ILLNESS DEPRESSION SCREENING: PHQ-2 (2015 EDITION) LITTLE INTEREST OR PLEASURE IN DOING THINGS?SEVERAL DAYS FEELING DOWN, DEPRESSED, OR HOPELESS?NOT AT ALL TOTAL SCORE1 GENERAL: HERE FOR FOLLOW-UP OF CHRONIC LOW BACK PAIN. THIS IS A WORK RELATED INJURY. REPORTS INCREASE IN LOW BACK PAIN OVER THE PAST FEW WEEKS. WAS DOING WELL FOR GREATER THAN 6 MONTHS AFTER LAST LUMBAR THERAPEUTIC FACET BLOCK DONE IN AUGUST 2019. REPORTING POOR SLEEP AT NIGHT DUE TO INCREASED PAIN. DENIES ILLNESS OR WEIGHT LOSS. DENIES BOWEL OR BLADDER INCONTINENCE. MRI OF THE LS SPINE IS REVIEWED. DISCUSSED TREATMENT OPTIONS. -. FALL RISK SCREENING: SCREENING :NO FALLS REPORTED IN THE LAST YEAR PAIN SCREENING: PATIENT HAS A COMPLAINT OF ACUTE OR CHRONIC PAIN :YES LOCATION OF PAIN:BOTH SHOULDERS, MID BACK, LOW BACK BOTH BUTTOCKS, INTERMITTENT SPASMS IN LEGS, LEFT WORSE THAN RIGHT INTENSITY OF PAIN (SCALE OF 1 TO 10): 8 WHAT DOES YOUR PAIN FEEL LIKE:ACHING INTERMITTENTLY STABBING DURATION:CONTINOUS PAIN IS INCREASED BY:ACTIVITIES, PROLONGED STANDING PAIN IS DECREASED BY:USE OF PAIN MEDICATIONS MINIMAL IMPROVEMENT WITH MEDICATION NURSING NOTE: -. PAIN CENTER INTAKE QUESTIONS: DO YOU HAVE A HISTORY OF MRSA? :NO DO YOU TAKE A BLOOD THINNERS? :NO DO YOU HAVE ANY BLEEDING DISORDERS? :NO ANY NEW NUMBNESS OR WEAKNESS IN YOUR LEGS OR ARMS? :NO ANY PACEMAKER,DEFIBRILLATOR, OR DORSAL COLUMN STIMULATOR? :NO DO YOU HAVE ANY RASHES OR OPEN SORES? :YES LUPUS ARE YOU ALLERGIC TO IV DYE? :NO ARE YOU DIABETIC? :NO ANY NEW PROBLEMS WITH YOUR MEDICATIONS? :NO HAVE YOU RECEIVED A VACCINE IN THE PAST 30 DAYS? :NO DO YOU PLAN TO RECEIVE A VACCINE IN THE NEXT 21 DAYS? :NO DO YOU NEED ANY PRESCRIPTION? :NO DO YOU TAKE ANY IMMUNOSUPPRESSIVE MEDICATIONS? :NO IS THERE A CHANCE YOU COULD BE ? :NO ARE YOU BREAST FEEDING? :NO CURRENT MEDICATIONS TAKING BENADRYL 25 MG TABLET 1 TABLET NEEDED ORALLY EVERY 6 HRS TAKING CALCIUM 500 MG TABLET 1 TABLET ORALLY DAILY TAKING VITAMIN D 1000 UNIT CAPSULE 1 CAPSULE ORALLY ONCE A DAY TAKING ST [place] WORT TABLET 2 TABLET ORALLY ONCE A DAY TAKING DESONIDE CREAM 1 APPLICATION TO AFFECTED AREA EXTERNALLY TWICE A DAY TAKING SINGULAIR 10 MG TABLET 1 TABLET ORALLY ONCE A DAY TAKING CLARITIN 10 MG TABLET 1 TABLET ORALLY ONCE A DAY NEEDED TAKING POTASSIUM 1 TAB ORAL OTC 1 TAB PER DAY TAKING FAMOTIDINE 10 MG TABLET 1 TABLET NEEDED ORALLY TWICE A DAY TAKING BACLOFEN 10 MG TABLET 1 TAB ORALLY BID PRN FOR SPASMS AND PAIN NOT-TAKING TUMS 500 MG TABLET CHEWABLE 1 TABLET ORALLY ONCE A DAY, NOTES: TAKES NEEDED NOT-TAKING RANITIDINE HCL 150 MG CAPSULE 1 CAP ORALLY TWICE A DAY MEDICATION LIST REVIEWED AND RECONCILED WITH THE PATIENT PAST MEDICAL HISTORY ASTHMA GERD DISCOID LUPUS DIVERTICULITIS ULCERATIVE COLITIS HIATAL HERNIA GASTRITIS THORACIC AND LUMBAR PAIN HEREDITARY SPHEROCYTOSIS ALLERGIES WHEAT: NAUSEA/VOMITING LACTOSE: NAUSEA/VOMITING - ALLERGY BANDAIDS: RASH - ALLERGY FLEXERIL: HIVES - ALLERGY NITROFURANTOIN: RASH - ALLERGY SULFA (FOR ALLERGY USE ONLY): RASH - ALLERGY SURGICAL HISTORY SPLENECTOMY 1977 CHOLECYSTECTOMY 2006 HYSTERECTOMY AND BLADDER SUSPENSION 2004 FAMILY HISTORY FATHER: , DIAGNOSED WITH HYPERTENSION, DIABETES, OTHER SPECIFIED CONDITIONS INFLUENCING HEALTH STATUS MOTHER: 90 YRS, CONGESTIVE HEART FAILURE, UNSPECIFIED HEART DISEASE 1 SON(S) , 1 DAUGHTER(S) - HEALTHY. DAD-PARKINSONSFATHER AND PATERNAL GRANDMOTHER CARRIERS OF HEREDITARY SPHEROCYTOSIS. SOCIAL HISTORY GENERAL: TOBACCO USE ARE YOU A:NONSMOKER ADDITIONAL FINDINGS: TOBACCO [id number] FOR PERSONAL REASONS LATEX QUESTIONNAIRE DATE ASKED : 08/31/2019 ALCOHOL SCREENING DID YOU HAVE A DRINK CONTAINING ALCOHOL IN THE PAST YEAR?NO POINTS0 INTERPRETATIONNEGATIVE RECREATIONAL DRUG USE DRUG USE?NO PATIENT DENIES ABUSE OR MISSUSED OF ANY MEDICATION DENIES 09/04/19 CAFFEINE CAFFEINE USE?NO MORAVIAN MYLXCTET24 NONDENOMINATIONAL LANGUAGE LANGUAGES SPOKEN:AUSTRALIAN LEARNING BARRIERS / SPECIAL NEEDS BARRIERS TO LEARNING?NO HEARING IMPAIRED?NO VISION IMPAIRED?YES COGNITIVELY IMPAIRED?NO :CORRECTIVE LENSES READINESS TO LEARN?YES LEARNING PREFERENCES?YES :TAPES/VIDEOS, BOOKLETS, HANDOUTS, DEMONSTRATION/VERBAL INSTRUCTION LEARNING CAPABILITIES PRESENT?YES EMOTIONAL BARRIERS?NO SPECIAL DEVICES?NO WASHER OFF NEEDED?NO DOMESTIC VIOLENCE DO YOU FEEL SAFE IN YOUR ENVIRONMENT?YES DIET: GLUTEN FREE, LACTOSE FREE. EXERCISE: STRETCHES, WALKS. TODAY'S VISITNOTES 09/04/19 PATIENT DESCRIBES PAIN :ACHING, HAVE IT ALL THE TIME, SHARP, STABBING SHARP AND STABBING WITH SOME MOVEMENTS, ACHING ALL THE TIME, WAKING UP FROM PAIN IN HER SLEEP FROM 0-10, WHAT LEVEL IS YOUR PAIN TODAY?8 PRECIPITATING FACTORS MOVEMENT MAKES IT WORSE ALLEVIATING FACTORS STRETCHING HELPS SOMETIMES, BACLOFEN DOES HELP WHEN SHE USES PRN PAIN CLINIC PFS, CLERGY, PUBLIC HEALTH REFERRALS PFS REFERRAL NEEDED?NO CLERGY REFERRAL NEEDED?NO PUBLIC HEALTH REFERRAL NEEDED?NO WAS THE PROVIDER NOTIFIED OF ANY PERTINENT INFO? N/A HAS THE PATIENT BEEN EDUCATED REGARDING HIS/HER PLAN OF CARE?YES HAS THE PATIENT BEEN EDUCATED REGARDING PAIN, THE RISK FOR PAIN, THE IMPORTANCE OF EFFECTIVE PAIN MANAGEMENT, AND THE PAIN ASSESSMENT PROCESS?YES ADVANCE DIRECTIVE ADVANCE DIRECTIVE DISCUSSED WITH PATIENT:YES PT HAS HCP [facility] SANCHEZX [phone] 01/13/18 REVIEWED WITH PT. AD02/28/18 REVIEWED WITH PT. AD05/16/18 1140 REVIEWED WITH PT LASREVIEWED WITH PT 07/03/18 1029 BVREVIEWED WITH PT 09/22/18 1055 BVREVIEWED WITH PT 01/10/19 1006 NLJREVIEWED WITH PATIENT 04/20/2019 1051 JS. HOSPITALIZATION/MAJOR DIAGNOSTIC PROCEDURE SURGERIES/CHILDBIRTH REVIEW OF SYSTEMS CONSTITUTIONAL: ANY RECENT FEVER NO . CHILLS NO . WEIGHT CHANGE OF UNKNOWN REASONS NO . GASTROENTEROLOGY: NEW UNEXPLAINABLE CHANGES IN BOWEL CONTROL NO . CONSTIPATION NO . GENITOURINARY: ANY NEW CHANGE IN BLADDER CONTROL? NO . NEUROLOGY: NEW ONSET DIZZINESS OR NEUROLOGICAL CHANGES NOT MENTIONED NO . NEW NUMBNESS OR PAIN PATTERNS NOT MENTIONED AND PERTINENT TO TODAY'S VISIT NO . CARDIOLOGY: NEW CHEST PRESSURE NO . NEW CHEST PAIN NO . RESPIRATORY: UNEXPLAINABLE COUGH NO . NEW SHORTNESS OF BREATH NO . VITAL SIGNS WT 141.6 LBS, HT 61 1/2, BMI 26.32 INDEX, BP 144/63 MM HG, HR 63 /MIN, RR 16 /MIN, TEMP 96.0 F, OXYGEN SAT % 96%, SAFE IN ENV? (Y/N) YES, NA INITIALS TX 10: 1119 REVIEWED. Wendy WERNER RN. EXAMINATION GENERAL EXAMINATION: GENERAL AWAKE,ALERT ,PLEAASANT . PSYCH AFFECT NORMAL . LUNGS: LUNG ADAMS ARE CLEAR TO AUSCULTATION BILATERALLY. GOOD MOVEMENT OF AIR . HEART: S1, S2 IN A REGULAR RATE AND RHYTHM. NO SIGNIFICANT MURMURS, RUBS OR GALLOPS NOTED . LUMBAR:PALPATION:TENDER OVER BILAT. L4/5-L5/S1 LUMBAR FACETS WITH FACET LOADING.. DIAGNOSTIC TESTS REVIEWEDMRI L/S SPINE 10/2018 . ASSESSMENTS SPONDYLOSIS OF LUMBAR REGION WITHOUT MYELOPATHY OR RADICULOPATHY - M47.816 (PRIMARY) TREATMENT SPONDYLOSIS OF LUMBAR REGION WITHOUT MYELOPATHY OR RADICULOPATHY NOTES: WORKMEN'S COMP REQUEST BILATERAL L4-5, L5-S1 LUMBAR THERAPEUTIC FACET BLOCK. 03/21/20 1210 PATIENT GIVEN PRE PROCEDURE INSTRUCTIONS AND HANDOUT ON FACET BLOCK, PATIENT VERBALIZES UNDERSTANDING. OTHERS NOTES: FACET JOINT INJECTION MATERIAL WAS PRINTED. PROCEDURES PN WORKMANS' COMP OPINION IN YOUR OPINION, WAS THE INCIDENT THAT THE PATIENT DESCRIBED THE COMPETENT MEDICAL CAUSE OF THIS INJURY/ILLNESS? YES ARE THE PATIENT'S COMPLAINTS CONSISTENT WITH HIS/HER HISTORY OF THE INJURY/ILLNESS? YES IS THE PATIENT'S HISTORY OF THE INJURY/ILLNESS CONSISTENT WITH YOUR OBJECTIVE FINDING? YES WHAT IS THE PERCENTAGE OF TEMPORARY IMPAIRMENT? MODERATE TO MARKED = 66.7% IS THE PATIENT WORKING? YES DOCTOR ON SITE: JAVAD HATHAWAY MD PROCEDURE CODES FA211 ESTABILISHED PATIENT [facility] FACILITY CHARGE DISPOSITION & COMMUNICATION FOLLOW UP POST PROCEDURE (REASON: WORKMEN'S COMP REQUEST BILATERAL L4-5, L5-S1 LUMBAR THERAPEUTIC FACET BLOCK) ELECTRONICALLY SIGNED BY FELIPA WOOD ON 03/25/2020 AT 01:15 PM EST DISCLAIMER : THIS IS A VISIT SUMMARY EXTRACTED FROM THE [employer] CHART. IT IS NOT A COPY OF THE [employer] PROGRESS NOTE. SACHA
== END ==
LOC: M PAIN 10:30
PROVIDERS: ATTEND Nurse Practitioner Family
DX: M47.816 Spondylosis without myelopathy or radiculopathy, lumbar region (principal); G89.29 Other chronic pain; J45.909 Unspecified asthma, uncomplicated; Z88.2 Allergy status to sulfonamides; Z88.8 Allergy status to other drugs, medicaments and biological substances; Z91.011 Allergy to milk products; Z91.018 Allergy to other foods; Z91.09 Other allergy status, other than to drugs and biological substances; Z79.899 Other long term (current) drug therapy

== ENCOUNTER → 2020-04-30 | Outpatient (CLI) | payer OTHER | LOC: M LABSMTC 11:03 | PROVIDERS: ATTEND Anesthesiology | DX: Z20.828 Contact with and (suspected) exposure to other viral communicable diseases (principal) ==

== ENCOUNTER → 2020-05-05 | Outpatient (CLI) | payer OTHER ==
[~2020-05-05] MED LIST changes: +BUPIVACAINE HCL 0.25% 30ML VIAL As Ordered ONE; +ISOVUE-M 300 61% 15ML VIAL As Ordered ONE; +LIDOCAINE 1% SDV 30ML VIAL As Ordered ONE; +TRIAMCINOLONE ACETONIDE SUSP 40 MG/ML VIAL (J3301) As Ordered ONE; +diazePAM 5MG TABLET As Ordered ONE; +oxyCODONE 5MG TAB As Ordered ONE
--- NOTE | 2020-05-05 14:13 | REP ---
INDICATION: BILATERAL THERAPEUTIC LUMBAR FACET BLOCK L4-L5, L5-S1. COMPARISON: None. TECHNIQUE: Two views. 34.5 seconds of fluoroscopy time is reported. FINDINGS: A sequence of 2 last image hold fluoroscopically obtained spot radiograph(s) of the lumbar spine document(s) needle position(s) and contrast injection associated with injection procedure. IMPRESSION: Procedural imaging. <Electronically signed by Marck Johnson > 05/05/20 0137
--- NOTE | 2020-05-07 01:36 | ECWPNPC ---
PATIENT NAME: ZAKIA BLAKE : 1955 GENDER: FEMALE VISIT DATE: 05/05/2020 DISCHARGE DATE: 05/05/20 1330 VISIT LOCKED DATE TIME: PHYSICIAN: JAVAD VILLALOBOS MD RESOURCE: JAVAD VILLALOBOS MD REASON FOR APPOINTMENT 1. BILATERAL THERAPEUTIC LUMBAR FACET BLOCK L4-L5, L5-S1 HISTORY OF PRESENT ILLNESS GENERAL: -. -. FALL RISK SCREENING: SCREENING :ONE FALL WITHOUT INJURY IN THE PAST YEAR PAIN SCREENING: PATIENT HAS A COMPLAINT OF ACUTE OR CHRONIC PAIN :YES LOCATION OF PAIN:LEG(S), LOW BACK INTENSITY OF PAIN (SCALE OF 1 TO 10):8 WHAT DOES YOUR PAIN FEEL LIKE:ACHING, CONTINOUS DURATION:AWAKENS FROM SLEEP PAIN IS INCREASED BY:ACTIVITIES SITTING, LIFTING PAIN IS DECREASED BY:OTHERS REST, HEAT PLAN/GOALS/TREATMENT/INTERVENTION/FOLLOW UP:SEE PLAN PAIN CENTER INTAKE QUESTIONS: DO YOU HAVE A HISTORY OF MRSA? :NO DO YOU TAKE A BLOOD THINNERS? :NO DO YOU HAVE ANY BLEEDING DISORDERS? :NO ANY NEW NUMBNESS OR WEAKNESS IN YOUR LEGS OR ARMS? :NO ANY PACEMAKER,DEFIBRILLATOR, OR DORSAL COLUMN STIMULATOR? :NO DO YOU HAVE ANY RASHES OR OPEN SORES? :NO ARE YOU ALLERGIC TO IV DYE? :NO ARE YOU DIABETIC? :NO ANY NEW PROBLEMS WITH YOUR MEDICATIONS? :NO HAVE YOU RECEIVED A VACCINE IN THE PAST 30 DAYS? :NO DO YOU PLAN TO RECEIVE A VACCINE IN THE NEXT 21 DAYS? :NO DO YOU TAKE ANY IMMUNOSUPPRESSIVE MEDICATIONS? :NO ANY HISTORY OF SEIZURES? :NO ANY HISTORY OF CARDIAC ISSUES OR EVENTS? :YES 05/02/20 IRREGULAR HEARTBEAT DO YOU HAVE SLEEP APNEA? :YES DO YOU WEAR A CPAP?NO UNABLE TO TOLERATE ANY RECENT HEAD INJURY? :NO DO YOU HAVE ANY NEW INFECTIONS? :NO IS THERE A CHANCE YOU COULD BE ? :NO ARE YOU BREAST FEEDING? :NO WHEN DID YOU LAST EAT? : 05/04/20 1800 WHEN DID YOU LAST DRINK? : 05/05 0615 WHAT DID YOU LAST DRINK? : WATER NAME OF PERSON DRIVING YOU HOME? : CHARBEL DO YOU HAVE ANY OTHER QUESTIONS OR CONCERNS? : NO CURRENT MEDICATIONS TAKING BENADRYL 25 MG TABLET 1 TABLET NEEDED ORALLY EVERY 6 HRS TAKING CALCIUM 500 MG TABLET 1 TABLET ORALLY DAILY TAKING VITAMIN D 1000 UNIT CAPSULE 1 CAPSULE ORALLY ONCE A DAY TAKING ST [place] WORT TABLET 2 TABLET ORALLY ONCE A DAY TAKING DESONIDE CREAM 1 APPLICATION TO AFFECTED AREA EXTERNALLY TWICE A DAY TAKING SINGULAIR 10 MG TABLET 1 TABLET ORALLY ONCE A DAY TAKING CLARITIN 10 MG TABLET 1 TABLET ORALLY ONCE A DAY NEEDED TAKING POTASSIUM 1 TAB ORAL 550MG OTC 1 TAB PER DAY TAKING FAMOTIDINE 10 MG TABLET 1 TABLET NEEDED ORALLY TWICE A DAY TAKING BACLOFEN 10 MG TABLET 1 TAB ORALLY BID PRN FOR SPASMS AND PAIN, NOTES: 05/04 2129 NOT-TAKING TUMS 500 MG TABLET CHEWABLE 1 TABLET ORALLY ONCE A DAY, NOTES: TAKES NEEDED NOT-TAKING RANITIDINE HCL 150 MG CAPSULE 1 CAP ORALLY TWICE A DAY MEDICATION LIST REVIEWED AND RECONCILED WITH THE PATIENT PAST MEDICAL HISTORY ASTHMA GERD DISCOID LUPUS DIVERTICULITIS ULCERATIVE COLITIS HIATAL HERNIA GASTRITIS THORACIC AND LUMBAR PAIN HEREDITARY SPHEROCYTOSIS IRREGULAR HEARTBEAT (05/02/20) ALLERGIES WHEAT: NAUSEA/VOMITING LACTOSE: NAUSEA/VOMITING - ALLERGY BANDAIDS: RASH - ALLERGY FLEXERIL: HIVES - ALLERGY NITROFURANTOIN: RASH - ALLERGY SULFA (FOR ALLERGY USE ONLY): RASH - ALLERGY SOCIAL HISTORY GENERAL: TOBACCO USE ARE YOU A:NONSMOKER ADDITIONAL FINDINGS: TOBACCO [id number] FOR PERSONAL REASONS LATEX QUESTIONNAIRE LATEX ALLERGY : HAVE YOU EVER DEVELOPED ANY TYPE OF REACTION AFTER HANDLING LATEX PRODUCTS SUCH RUBBER GLOVES, CONDOMS, DIAPHRAGMS, BALLOONS, SOCKS, OR UNDERWEAR?NO LATEX ALLERGY : HAVE YOU EVER DEVELOPED ANY TYPE OF REACTION DURING OR AFTER DENTAL APPOINTMENT, VAGINAL/RECTAL EXAMINATION, SURGICAL PROCEDURE, OR ANY OTHER EXPOSURE?NO LATEX RISK : HAVE YOU EVER HAD ANY DIFFICULTY BREATHING OR HIVES AFTER EATING OR HANDLING ANY FRUITS, OR VEGETABLES; SUCH KIWI, BANANAS, STONE FRUITS, OR CHESTNUTSNO LATEX RISK : DO YOU HAVE A PREVIOUS PERSONAL HISTORY OF MORE THAN NINE SURGERIES, SPINA BIFIDA, OR REPEATED CATHERIZATIONS? NO LATEX RISK : ARE YOU FREQUENTLY EXPOSED TO LATEX PRODUCTS IN YOUR OCCUPATION?NO DATE ASKED : 05/02/2020 ALCOHOL USE: KOMAL GRANDE 05/02/2020 2:11:56 PM > , NO. ALCOHOL SCREENING DID YOU HAVE A DRINK CONTAINING ALCOHOL IN THE PAST YEAR?NO POINTS0 INTERPRETATIONNEGATIVE RECREATIONAL DRUG USE DRUG USE?NO PATIENT DENIES ABUSE OR MISSUSED OF ANY MEDICATION DENIES 09/04/19 CAFFEINE CAFFEINE USE?NO BUDDHIST [id number] SIKH LANGUAGE LANGUAGES SPOKEN:ARABIC LEARNING BARRIERS / SPECIAL NEEDS BARRIERS TO LEARNING?NO HEARING IMPAIRED?NO VISION IMPAIRED?YES COGNITIVELY IMPAIRED?NO :CORRECTIVE LENSES READINESS TO LEARN?YES LEARNING PREFERENCES?YES :TAPES/VIDEOS, BOOKLETS, HANDOUTS, DEMONSTRATION/VERBAL INSTRUCTION LEARNING CAPABILITIES PRESENT?YES EMOTIONAL BARRIERS?NO SPECIAL DEVICES?NO OFFAL BALER NEEDED?NO DOMESTIC VIOLENCE DO YOU FEEL SAFE IN YOUR ENVIRONMENT?YES DIET: GLUTEN FREE, LACTOSE FREE. EXERCISE: STRETCHES, WALKS. TODAY'S VISITNOTES 09/04/19 PATIENT DESCRIBES PAIN :ACHING, HAVE IT ALL THE TIME, SHARP, STABBING SHARP AND STABBING WITH SOME MOVEMENTS, ACHING ALL THE TIME, WAKING UP FROM PAIN IN HER SLEEP FROM 0-10, WHAT LEVEL IS YOUR PAIN TODAY?8 PRECIPITATING FACTORS MOVEMENT MAKES IT WORSE ALLEVIATING FACTORS STRETCHING HELPS SOMETIMES, BACLOFEN DOES HELP WHEN SHE USES PRN - PFS REFERRAL NEEDED?NO CLERGY REFERRAL NEEDED?NO PUBLIC HEALTH REFERRAL NEEDED?NO WAS THE PROVIDER NOTIFIED OF ANY PERTINENT INFO? N/A HAS THE PATIENT BEEN EDUCATED REGARDING HIS/HER PLAN OF CARE?YES HAS THE PATIENT BEEN EDUCATED REGARDING PAIN, THE RISK FOR PAIN, THE IMPORTANCE OF EFFECTIVE PAIN MANAGEMENT, AND THE PAIN ASSESSMENT PROCESS?YES ADVANCE DIRECTIVE ADVANCE DIRECTIVE DISCUSSED WITH PATIENT:YES PT HAS HCP CHARBEL HADLEY [phone] 01/13/18 REVIEWED WITH PT. AD02/28/18 REVIEWED WITH PT. AD05/16/18 1140 REVIEWED WITH PT LASREVIEWED WITH PT 07/03/18 1029 BVREVIEWED WITH PT 09/22/18 1055 BVREVIEWED WITH PT 01/10/19 1006 NLJREVIEWED WITH PATIENT 04/20/2019 1051 JS. VITAL SIGNS WT 142.0 LBS, HT 61 1/2, BMI 26.39 INDEX, BP 132/60 MM HG, HR 86 /MIN, RR 18 /MIN, TEMP 95.6 F, OXYGEN SAT % 97%, SAFE IN ENV? (Y/N) Y, NA INITIALS AW 1038, REVIEWED BY: Colleen FERGUSON RN 1101. EXAMINATION GENERAL EXAMINATION: THE PATIENT IS ALERT, ORIENTED TIMES THREE AND COOPERATIVE. LUNGS ARE CLEAR TO AUSCULTATION. HEART SHOWS REGULAR RHYTHM, NO MURMURS AND NO GALLOPS. ASSESSMENTS SPONDYLOSIS OF LUMBAR REGION WITHOUT MYELOPATHY OR RADICULOPATHY - M47.816 (PRIMARY) SPONDYLOSIS OF LUMBOSACRAL REGION WITHOUT MYELOPATHY OR RADICULOPATHY - M47.817 TREATMENT SPONDYLOSIS OF LUMBAR REGION WITHOUT MYELOPATHY OR RADICULOPATHY [facility] FACET BLOCK (PAIN)[id number] MEDICATION: VALIUM TAB 5MG ORALLY (DIAZEPAM)MUKUND STAUFFER 05/05/2020 11:18:43 AM > LOT # [id number] EXP 01/2022 KOMAL GRANDE 05/05/2020 11:20:35 AM > VERIFIED. MUKUND STAUFFER 05/05/2020 11:22:37 AM > ADMINISTERED DILEONARDO,KARIN 05/05/2020 11:52:20 AM - SECOND DOSE ORDERED MUSA WERNER RN 05/05/2020 11:57:06 AM > LOT [id number]. EXPIRES JAN 2022. MUSA WERNER RN 05/05/2020 12:02:33 PM > ADMINISTERED. MEDICATION: OXYCODONE HCL TAB 5MG ORALLY MUKUND STAUFFER 05/05/2020 11:19:31 AM > LOT # [id number] EXP 05/2021 KOMAL GRANDE 05/05/2020 11:20:54 AM > VERIFIED. MUKUND STAUFFER 05/05/2020 11:23:07 AM > ADMINISTERED DILEONARDO,KARIN 05/05/2020 11:52:30 AM - SECOND DOSE ORDERED MUSA WERNER RN 05/05/2020 11:57:51 AM > LOT [id number]. EXPIRES 05/2021. KOMAL GRANDE 05/05/2020 11:58:57 AM > 2ND DOSE VERIFIED. KOMAL GRANDE 05/05/2020 11:59:33 AM > 2ND DOSE VERIFIED. MUSA WERNER RN 05/05/2020 12:02:59 PM > ADMINISTERED. IV LACTATED RINGER'S AT FIFI JAVED 05/05/2020 11:40:14 AM > #20 SL STARTED IN LEFT AC X 1 ATTEMPT BY THIS FLASK MAKER. SITE ASYMPTOMATIC. LR INFUSING AT [facility] WITHOUT DIFFICULTY. MUKUND STAUFFER 05/05/2020 4:58:30 PM > 200 ML INFUSED COMPLETION OF PROCEDURAL VISIT WHEN MEETS CRITERIA OTHERS NOTES: 05/02/20 1420 PAT COMPLETED WITH PATIENT. PATIENT DENIES ANY CHANGES FROM PREVIOUS VISIT TO FAMILY HISTORY, SURGICAL HISTORY OR HOSPITALIZATIONS. Bianca GRANDE RN BSN . PROCEDURES PAIN NURSING RECORD PROCEDURE IN ROOM 1203, PHYSICIAN IN ROOM 1246, START 1253, FINISH 1258, PHYSICIAN OUT OF ROOM 1259, OUT OF ROOM 1309, ECG NORMAL SINUS, PATIENT SHIELDED YES, SAFETY STRAP YES, PREP CHLOROPREP BY Bianca GRANDE RN, DRESSING TEGADERM BY DR. VILLALOBOS LOC: XIOMY,MUKUND 05/05/2020 11:34:24 AM > , 1. ALERT, ORIENTED XIOMY,MUKUND 05/05/2020 1:12:32 PM > , 1. ALERT, ORIENTED RESP: XIOMYMUKUND 05/05/2020 11:34:28 AM > , 1. REGULAR, NO DYSPNEA XIOMY,MUKUND 05/05/2020 1:12:46 PM > , 1. REGULAR, NO DYSPNEA COLOR: XIOMYMUKUND 05/05/2020 11:34:33 AM > , 1. PINK XIOMYMUKUND 05/05/2020 1:12:59 PM > , 1. PINK SKIN: XIOMYMUKUND 05/05/2020 11:34:37 AM > , 1. WARM, DRY XIOMY,MUKUND 05/05/2020 1:13:19 PM > , 1. WARM, DRY POSITION: XIOMYMUKUND 05/05/2020 11:34:52 AM > , 2. SUPINE XIOMYMUKUND 05/05/2020 12:06:47 PM >, 1. PRONE XIOMYMUKUND 05/05/2020 1:13:33 PM > , 5. SITTING VITALS: XIOMY,MUKUND 05/05/2020 12:07:24 PM > 157/78,63,18,98% XIOMY,MUKUND 05/05/2020 12:20:53 PM > 156/82,67,18,99% XIOMY,MUKUND 05/05/2020 12:30:57 PM > 163/80,64,16,98% XIOMY,MUKUND 05/05/2020 12:45:11 PM > 140/75,64,16,97% XIOMY,MUKUND 05/05/2020 1:00:39 PM > 155/74,66,18,98% MUKUND STAUFFER 05/05/2020 1:05:37 PM > 151/72,63,18,97% XIOMYMUKUND 05/05/2020 1:13:59 PM > 143/67,61,18,95% COMPLETION OF PROCEDURE APPOINTMENT: POST PAIN 3 SORENESS AT SITE, DRESSING SITE DRY AND INTACT, IV DISCONTINUED, SITE CLEAR, CATHETER INTACT, GAIT STEADY, TEACHING COMPLETED, PATIENT ACKNOWLEDGES UNDERSTANDING YES, PROCEDURE APPOINTMENT COMPLETED AT 1330 PN WORKMANS' COMP OPINION IN YOUR OPINION, WAS THE INCIDENT THAT THE PATIENT DESCRIBED THE COMPETENT MEDICAL CAUSE OF THIS INJURY/ILLNESS? YES ARE THE PATIENT'S COMPLAINTS CONSISTENT WITH HIS/HER HISTORY OF THE INJURY/ILLNESS? YES IS THE PATIENT'S HISTORY OF THE INJURY/ILLNESS CONSISTENT WITH YOUR OBJECTIVE FINDING? YES WHAT IS THE PERCENTAGE OF TEMPORARY IMPAIRMENT? MODERATE TO MARKED = 66.7% . IS THE PATIENT WORKING? YES DOCTOR ON SITE: MD CHRISTINA PATRICIO LUMBAR FACET BLOCK THERAPEUTIC PRE PROCEDURE DIAGNOSIS LUMBAR SPONDYLOSIS, LUMBOSACRAL SPONDYLOSIS POST PROCEDURE DIAGNOSIS LUMBAR SPONDYLOSIS, LUMBOSACRAL SPONDYLOSIS PROCEDURE BILATERAL L4-L5 AND BILATERAL L5-S1 LUMBAR FACET THERAPEUTIC BLOCK SURGEON DR. JAVAD VILLALOBOS SENIOR MAINTENANCE MECHANIC NONE ANESTHESIA LOCAL PRE PROCEDURE NOTE THE PATIENT HAS A HISTORY OF CHRONIC LOW BACK PAIN. I EVALUATED THE PATIENT AND REVIEWED THE CHART. I WENT OVER THE RISKS, ALTERNATIVES, AND BENEFITS ASSOCIATED WITH THIS PROCEDURE. THE PATIENT WOULD LIKE TO PROCEED AND GIVES CONSENT TO PERFORM THE PROCEDURE. THE PATIENT DENIES UNEXPLAINABLE WEIGHT LOSS, FEVER, CHILLS, OR NEW CHANGES IN URINARY OR BOWEL CONTROL. THE PATIENT IS COVID-19 NEGATIVE DESCRIPTION OF PROCEDURE THE PATIENT WAS BROUGHT TO THE PROCEDURE ROOM AND PLACED IN THE PRONE POSITION. THE LUMBOSACRAL AREA WAS CLEANED WITH CHLORAPREP SOLUTION AND DRAPED ASEPTICALLY. THE PROCEDURE WAS DONE UNDER STERILE CONDITIONS. A TIMEOUT WAS PERFORMED WHERE LATERALITY AND THE SITE OF THE PROCEDURE WERE CHECKED AND CONFIRMED WITH EVERYONE IN THE ROOM. UNDER FLUOROSCOPIC GUIDANCE, THE TARGET POINT WAS SELECTED AT THE RIGHT AND LEFT L4-L5 AND RIGHT AND LEFT L5-S1 FACET JOINTS. TARGET POINT WAS SELECTED AFTER LATERAL ROTATION AND TILT OF THE MAGNIFIER OF THE C-ARM. I CONFIRMED AGAIN WITH EVERYONE IN THE ROOM THE LATERALITY AND SITE OF THE TARGET AT 1253. LIDOCAINE 0.5% WAS USED TO NUMB THE SKIN AND THE SUBCUTANEOUS TISSUE BELOW IT. SPINAL NEEDLES, 22-GAUGE, WERE ADVANCED UNDER FLUOROSCOPIC GUIDANCE AND FOLLOWING PATIENT FEEDBACK UNTIL THE TARGETS WERE TOUCHED. THE POSITION OF THE NEEDLES WAS VERIFIED WITH AP AND LATERAL VIEWS. AFTER PROPER POSITION OF THE NEEDLES WAS ACHIEVED, ISOVUE-M DYE 30%, 0.1 ML, WAS INJECTED SHOWING ADEQUATE SPREAD OF THE DYE. KENALOG 20 MG WAS INJECTED AT EACH SITE. THEN, A SOLUTION OF 1.0 ML OF BUPIVACAINE 0.125% OF WAS USED TO FLUSH EACH SITE. THE MEDICATION WAS VERIFIED WITH THE NURSE. THERE WAS NO EVIDENCE OF BLOOD, PARESTHESIA OR CEREBROSPINAL FLUID DURING THE PROCEDURE. THE PATIENT WAS SENT TO THE RECOVERY ROOM. THE PATIENT WAS MOVING THE EXTREMITIES AND DOING WELL. THERE WERE NO COMPLICATIONS DURING THE PROCEDURE. ESTIMATED BLOOD LOSS WAS LESS THAN 5 ML. FLUOROSCOPY TIME WAS 34 SECONDS POST PROCEDURE NOTE THE PATIENT WILL BE SEEN IN A FOLLOW UP IN THE NEXT FEW WEEKS. I AM LOOKING FOR LONG LASTING RELIEF FOR THE PATIENT WITH THIS INTERVENTION. INSTRUCTIONS WERE GIVEN, QUESTIONS WERE ANSWERED, AND THE PATIENT EXPRESSED UNDERSTANDING AND AGREES WITH THE PLAN. I, KARIN GAYTAN, DOCUMENTED THE ABOVE INFORMATION ACTING A SCRIBE FOR DR. VILLALOBOS. I HAVE REVIEWED THE ABOVE DOCUMENT, WRITTEN BY KARIN GAYTAN, PROGRESSIVE CARE NURSE, AND I VERIFY THAT IT IS ACCURATE PROCEDURE CODES 90703 INJ PARAVERT F JNT L/S 1 LEV, MODIFIERS: 50 [id number] INJ PARAVERT F JNT L/S 2 LEV, MODIFIERS: 50 DISPOSITION & COMMUNICATION FOLLOW UP FOLLOW UP WITH COMMERCIAL LOAN ASSISTANT (REASON: POST BILATERAL THERAPEUTIC LUMBAR FACET BLOCK L4-L5, L5-S1) ELECTRONICALLY SIGNED BY JAVAD VILLALOBOS MD, MD ON 05/06/2020 AT 01:53 PM EST DISCLAIMER : THIS IS A VISIT SUMMARY EXTRACTED FROM THE [employer] CHART. IT IS NOT A COPY OF THE [employer] PROGRESS NOTE. FELAD
== END ==
LOC: M PAIN 10:30
PROVIDERS: ATTEND Anesthesiology
DX: M47.816 Spondylosis without myelopathy or radiculopathy, lumbar region (principal); M47.817 Spondylosis without myelopathy or radiculopathy, lumbosacral region; J45.909 Unspecified asthma, uncomplicated; K21.9 Gastro-esophageal reflux disease without esophagitis; L93.0 Discoid lupus erythematosus; K44.9 Diaphragmatic hernia without obstruction or gangrene; Z79.899 Other long term (current) drug therapy
CPT/HCPCS: 64493; 64494; J3301; Q9967

== ENCOUNTER → 2020-06-17 | Outpatient (CLI) | payer OTHER ==
[~2020-06-17] MED LIST changes: -BUPIVACAINE HCL 0.25% 30ML VIAL As Ordered ONE; -ISOVUE-M 300 61% 15ML VIAL As Ordered ONE; -LIDOCAINE 1% SDV 30ML VIAL As Ordered ONE; -TRIAMCINOLONE ACETONIDE SUSP 40 MG/ML VIAL (J3301) As Ordered ONE; -diazePAM 5MG TABLET As Ordered ONE; -oxyCODONE 5MG TAB As Ordered ONE
== END ==
LOC: M PAIN 09:45
PROVIDERS: ATTEND Nurse Practitioner Family
DX: G89.29 Other chronic pain (principal); M47.816 Spondylosis without myelopathy or radiculopathy, lumbar region; J45.909 Unspecified asthma, uncomplicated; K21.9 Gastro-esophageal reflux disease without esophagitis; L93.0 Discoid lupus erythematosus; K44.9 Diaphragmatic hernia without obstruction or gangrene; Z79.899 Other long term (current) drug therapy; Z88.2 Allergy status to sulfonamides; Z88.8 Allergy status to other drugs, medicaments and biological substances; Z91.018 Allergy to other foods; Z91.048 Other nonmedicinal substance allergy status

== ENCOUNTER → 2020-11-04 | Outpatient (CLI) | payer OTHER ==
--- NOTE | 2020-11-05 04:15 | ECWPNPC ---
PATIENT NAME: ZAKIA BLAKE : 1955 GENDER: FEMALE VISIT DATE: 11/04/2020 DISCHARGE DATE: 11/04/20 1032 VISIT LOCKED DATE TIME: PHYSICIAN: KEN CASTELLANO RESOURCE: KEN CASTELLANO REASON FOR APPOINTMENT 1. WORKMEN'S COMPENSATION/BACK PAIN HISTORY OF PRESENT ILLNESS GENERAL: HERE FOR FOLLOW-UP OF CHRONIC LOW BACK PAIN. THIS IS A WORK-RELATED INJURY. PAIN HAS BEGUN TO RETURN TO [facility]EL[place] OVER THE PAST FEW WEEKS. FINDING IT DIFFICULT TO SLEEP DUE TO LOW BACK PAIN. HAS RESPONDED WELL TO LUMBAR FACET BLOCKS IN THE PAST WITH GREATER THAN 80% REDUCTION IN PAIN FOR SEVERAL MONTHS POST PROCEDURE. PAIN IS IN THE SAME LOCATION PREVIOUS FLARE UPS. DENIES ANY CHANGES IN HER MEDICAL CONDITION. -. FALL RISK SCREENING: SCREENING : NO FALLS REPORTED IN THE LAST YEAR. PAIN SCREENING: PATIENT HAS A COMPLAINT OF ACUTE OR CHRONIC PAIN :YES LOCATION OF PAIN:LOW BACK INTENSITY OF PAIN (SCALE OF 1 TO 10):7 SPASM WHAT DOES YOUR PAIN FEEL LIKE:ACHING, CONTINOUS, THROBBING DURATION:CONTINOUS, CONSTANT, ALL DAY, AWAKENS FROM SLEEP PAIN IS INCREASED BY:OTHERS SITTING DOWN FOR A LONG TIME PAIN IS DECREASED BY:USE OF PAIN MEDICATIONS NURSING NOTE: -. PAIN CENTER INTAKE QUESTIONS: DO YOU HAVE A HISTORY OF MRSA? :NO DO YOU TAKE A BLOOD THINNERS? :NO DO YOU HAVE ANY BLEEDING DISORDERS? :NO ANY NEW NUMBNESS OR WEAKNESS IN YOUR LEGS OR ARMS? :NO ANY PACEMAKER,DEFIBRILLATOR, OR DORSAL COLUMN STIMULATOR? :NO DO YOU HAVE ANY RASHES OR OPEN SORES? :YES LUPUS RASHES ARE YOU ALLERGIC TO IV DYE? :NO ARE YOU DIABETIC? :NO ANY NEW PROBLEMS WITH YOUR MEDICATIONS? :YES BACLOFEN 10 MG - CAUSES TWITCHING HAVE YOU RECEIVED A VACCINE IN THE PAST 30 DAYS? :NO DO YOU PLAN TO RECEIVE A VACCINE IN THE NEXT 21 DAYS? :NO DO YOU NEED ANY PRESCRIPTION? :NO DO YOU TAKE ANY IMMUNOSUPPRESSIVE MEDICATIONS? :NO IS THERE A CHANCE YOU COULD BE ? :NO ARE YOU BREAST FEEDING? :NO CURRENT MEDICATIONS TAKING BENADRYL 25 MG TABLET 1 TABLET NEEDED ORALLY EVERY 6 HRS TAKING CALCIUM 500 MG TABLET 1 TABLET ORALLY DAILY TAKING VITAMIN D 1000 UNIT CAPSULE 1 CAPSULE ORALLY ONCE A DAY TAKING ST [place] WORT TABLET 2 TABLET ORALLY ONCE A DAY TAKING DESONIDE CREAM 1 APPLICATION TO AFFECTED AREA EXTERNALLY TWICE A DAY TAKING SINGULAIR 10 MG TABLET 1 TABLET ORALLY ONCE A DAY TAKING CLARITIN 10 MG TABLET 1 TABLET ORALLY ONCE A DAY NEEDED TAKING POTASSIUM 1 TAB ORAL 550MG OTC 1 TAB PER DAY TAKING FAMOTIDINE 10 MG TABLET 1 TABLET NEEDED ORALLY TWICE A DAY TAKING BACLOFEN 10 MG TABLET 1 TAB ORALLY NEEDED PRN FOR SPASMS AND PAIN TAKING MAGNESIUM 200 MG TABLET 2 TABLETS WITH A MEAL ORALLY ONCE A DAY, NOTES: NOT SURE OF DOSE NOT-TAKING TUMS 500 MG TABLET CHEWABLE 1 TABLET ORALLY ONCE A DAY, NOTES: TAKES NEEDED NOT-TAKING RANITIDINE HCL 150 MG CAPSULE 1 CAP ORALLY TWICE A DAY MEDICATION LIST REVIEWED AND RECONCILED WITH THE PATIENT PAST MEDICAL HISTORY ASTHMA GERD DISCOID LUPUS DIVERTICULITIS ULCERATIVE COLITIS HIATAL HERNIA GASTRITIS THORACIC AND LUMBAR PAIN HEREDITARY SPHEROCYTOSIS IRREGULAR HEARTBEAT (05/02/20) 2ND COVID 05/31/20 ALLERGIES WHEAT: NAUSEA/VOMITING LACTOSE: NAUSEA/VOMITING - ALLERGY BANDAIDS: RASH - ALLERGY FLEXERIL: HIVES - ALLERGY NITROFURANTOIN: RASH - ALLERGY SULFA (FOR ALLERGY USE ONLY): RASH - ALLERGY SOCIAL HISTORY GENERAL: TOBACCO USE ARE YOU A:NONSMOKER ADDITIONAL FINDINGS: TOBACCO [id number] FOR PERSONAL REASONS LATEX QUESTIONNAIRE LATEX ALLERGY : HAVE YOU EVER DEVELOPED ANY TYPE OF REACTION AFTER HANDLING LATEX PRODUCTS SUCH RUBBER GLOVES, CONDOMS, DIAPHRAGMS, BALLOONS, SOCKS, OR UNDERWEAR?YES - PLEASE INDICATE :OTHER (DOCUMENT IN NOTES) BANDAIDS LATEX ALLERGY : HAVE YOU EVER DEVELOPED ANY TYPE OF REACTION DURING OR AFTER DENTAL APPOINTMENT, VAGINAL/RECTAL EXAMINATION, SURGICAL PROCEDURE, OR ANY OTHER EXPOSURE?NO LATEX RISK : HAVE YOU EVER HAD ANY DIFFICULTY BREATHING OR HIVES AFTER EATING OR HANDLING ANY FRUITS, OR VEGETABLES; SUCH KIWI, BANANAS, STONE FRUITS, OR CHESTNUTSNO LATEX RISK : DO YOU HAVE A PREVIOUS PERSONAL HISTORY OF MORE THAN NINE SURGERIES, SPINA BIFIDA, OR REPEATED CATHERIZATIONS? NO LATEX RISK : ARE YOU FREQUENTLY EXPOSED TO LATEX PRODUCTS IN YOUR OCCUPATION?NO DATE ASKED : 11/04/2020 ALCOHOL USE: NO. ALCOHOL SCREENING DID YOU HAVE A DRINK CONTAINING ALCOHOL IN THE PAST YEAR?NO POINTS0 INTERPRETATIONNEGATIVE RECREATIONAL DRUG USE DRUG USE?NO PATIENT DENIES ABUSE OR MISSUSED OF ANY MEDICATION DENIES 09/04/19 CAFFEINE CAFFEINE USE?NO CHEONDOISM [id number] JAINISM LANGUAGE LANGUAGES SPOKEN:TURKMEN LEARNING BARRIERS / SPECIAL NEEDS CHANGE FROM LAST VISIT?NO BARRIERS TO LEARNING?NO HEARING IMPAIRED?YES : SELECTIVE HEARING VISION IMPAIRED?YES :CORRECTIVE LENSES COGNITIVELY IMPAIRED?YES READINESS TO LEARN?YES LEARNING PREFERENCES?YES :TAPES/VIDEOS, BOOKLETS, HANDOUTS, DEMONSTRATION/VERBAL INSTRUCTION LEARNING CAPABILITIES PRESENT?YES EMOTIONAL BARRIERS?NO SPECIAL DEVICES?NO DIRECTOR OF MATERNITY SERVICES NEEDED?NO DOMESTIC VIOLENCE DO YOU FEEL SAFE IN YOUR ENVIRONMENT?YES DIET: GLUTEN FREE, LACTOSE FREE. EXERCISE: STRETCHES, WALKS. TODAY'S VISITNOTES 09/04/19 PATIENT DESCRIBES PAIN :ACHING, HAVE IT ALL THE TIME, SHARP, STABBING SHARP AND STABBING WITH SOME MOVEMENTS, ACHING ALL THE TIME, WAKING UP FROM PAIN IN HER SLEEP FROM 0-10, WHAT LEVEL IS YOUR PAIN TODAY?8 PRECIPITATING FACTORS MOVEMENT MAKES IT WORSE ALLEVIATING FACTORS STRETCHING HELPS SOMETIMES, BACLOFEN DOES HELP WHEN SHE USES PRN - PFS REFERRAL NEEDED?NO CLERGY REFERRAL NEEDED?NO PUBLIC HEALTH REFERRAL NEEDED?NO WAS THE PROVIDER NOTIFIED OF ANY PERTINENT INFO? N/A HAS THE PATIENT BEEN EDUCATED REGARDING HIS/HER PLAN OF CARE?YES HAS THE PATIENT BEEN EDUCATED REGARDING PAIN, THE RISK FOR PAIN, THE IMPORTANCE OF EFFECTIVE PAIN MANAGEMENT, AND THE PAIN ASSESSMENT PROCESS?YES ADVANCE DIRECTIVE ADVANCE DIRECTIVE DISCUSSED WITH PATIENT:YES PT HAS HCP [facility] [phone] 01/13/18 REVIEWED WITH PT. AD02/28/18 REVIEWED WITH PT. AD05/16/18 1140 REVIEWED WITH PT LASREVIEWED WITH PT 07/03/18 1029 BVREVIEWED WITH PT 09/22/18 1055 BVREVIEWED WITH PT 01/10/19 1006 NLJREVIEWED WITH PATIENT 04/20/2019 1051 JS. REVIEW OF SYSTEMS CONSTITUTIONAL: ANY RECENT FEVER NO . CHILLS NO . WEIGHT CHANGE OF UNKNOWN REASONS NO . GASTROENTEROLOGY: NEW UNEXPLAINABLE CHANGES IN BOWEL CONTROL NO . CONSTIPATION NO . GENITOURINARY: ANY NEW CHANGE IN BLADDER CONTROL? NO . NEUROLOGY: NEW ONSET DIZZINESS OR NEUROLOGICAL CHANGES NOT MENTIONED NO . NEW NUMBNESS OR PAIN PATTERNS NOT MENTIONED AND PERTINENT TO TODAY'S VISIT NO . CARDIOLOGY: NEW CHEST PRESSURE NO . PATIENT DENIES NO . RESPIRATORY: UNEXPLAINABLE COUGH NO . NEW SHORTNESS OF BREATH NO . VITAL SIGNS WT 145.8 LBS, HT 61 1/2, BMI 27.10 INDEX, BP 133/60 MM HG, HR 60 /MIN, RR 18 /MIN, TEMP 97.5 F, OXYGEN SAT % 97%, SAFE IN ENV? (Y/N) YES, NA INITIALS SC 10:03T.LAURIE LEZAMA. EXAMINATION GENERAL EXAMINATION: GENERAL AWAKE,ALERT ,PLEAASANT . PSYCH AFFECT NORMAL . LUNGS: LUNG ADAMS ARE CLEAR TO AUSCULTATION BILATERALLY. GOOD MOVEMENT OF AIR . HEART: S1, S2 IN A REGULAR RATE AND RHYTHM. NO SIGNIFICANT MURMURS, RUBS OR GALLOPS NOTED . LUMBAR:PALPATION:TENDER OVER BILAT. L4/5-L5/S1 LUMBAR FACETS WITH FACET LOADING.. DIAGNOSTIC TESTS REVIEWEDI L/S SPINE 10/2018 . ASSESSMENTS SPONDYLOSIS OF LUMBAR REGION WITHOUT MYELOPATHY OR RADICULOPATHY - M47.816 (PRIMARY) TREATMENT SPONDYLOSIS OF LUMBAR REGION WITHOUT MYELOPATHY OR RADICULOPATHY NOTES: BILATERAL THERAPEUTIC LUMBAR FACET BLOCK L4-5,L5-S1 REVIEWED PRE PROCEDURE INFORMATION, PATIENT VERBALIZED UNDERSTANDING JASSON WHITLOCK PROCEDURES PN WORKMANS' COMP OPINION IN YOUR OPINION, WAS THE INCIDENT THAT THE PATIENT DESCRIBED THE COMPETENT MEDICAL CAUSE OF THIS INJURY/ILLNESS? YES ARE THE PATIENT'S COMPLAINTS CONSISTENT WITH HIS/HER HISTORY OF THE INJURY/ILLNESS? YES IS THE PATIENT'S HISTORY OF THE INJURY/ILLNESS CONSISTENT WITH YOUR OBJECTIVE FINDING? YES WHAT IS THE PERCENTAGE OF TEMPORARY IMPAIRMENT? MODERATE TO MARKED = 66.7% IS THE PATIENT WORKING? YES DOCTOR ON SITE: JAVAD HATHAWAY MD PROCEDURE CODES FA211 ESTABILISHED PATIENT [facility] CHARGE DISPOSITION & COMMUNICATION FOLLOW UP POST (REASON: BILATERAL THERAPEUTIC LUMBAR FACET BLOCK L4-5,L5-S1) ELECTRONICALLY SIGNED BY FELIPA WOOD ON 11/04/2020 AT 01:10 PM EDT DISCLAIMER : THIS IS A VISIT SUMMARY EXTRACTED FROM THE [employer] CHART. IT IS NOT A COPY OF THE [employer] PROGRESS NOTE. SACHA
== END ==
LOC: M PAIN 10:00
PROVIDERS: ATTEND Nurse Practitioner Family
DX: M47.816 Spondylosis without myelopathy or radiculopathy, lumbar region (principal); J45.909 Unspecified asthma, uncomplicated; K21.9 Gastro-esophageal reflux disease without esophagitis; L93.0 Discoid lupus erythematosus; K44.9 Diaphragmatic hernia without obstruction or gangrene; Z79.899 Other long term (current) drug therapy; Z88.2 Allergy status to sulfonamides; Z91.018 Allergy to other foods; E73.9 Lactose intolerance, unspecified; Z88.8 Allergy status to other drugs, medicaments and biological substances; Z91.048 Other nonmedicinal substance allergy status

== ENCOUNTER → 2020-11-13 | Outpatient (CLI) | payer OTHER | LOC: M LABSMTC 14:00 | PROVIDERS: ATTEND Anesthesiology | DX: Z20.822 Contact with and (suspected) exposure to COVID-19 (principal) ==

== ENCOUNTER → 2020-11-18 | Outpatient (CLI) | payer OTHER ==
[~2020-11-18] MED LIST changes: +BUPIVACAINE HCL 0.25% 30ML VIAL As Ordered ONE; +ISOVUE-M 300 61% 15ML VIAL As Ordered ONE; +LIDOCAINE 1% SDV 30ML VIAL As Ordered ONE; +TRIAMCINOLONE ACETONIDE SUSP 40 MG/ML VIAL (J3301) As Ordered ONE; +diazePAM 5MG TABLET As Ordered ONE; +oxyCODONE 5MG TAB As Ordered ONE
--- NOTE | 2020-11-18 16:06 | REP ---
INDICATION: BILATERAL THERAPEUTIC LUMABR FACET BLOCK. COMPARISON: None. TECHNIQUE: Two views. 34.7 seconds of fluoroscopy time is reported. FINDINGS: A sequence of 2 last image hold fluoroscopically obtained spot radiograph(s) of the lumbar spine document(s) needle position(s) and contrast injection associated with injection procedure. IMPRESSION: Procedural imaging. <Electronically signed by Marck Johnson > 11/18/20 6037
--- NOTE | 2020-11-22 00:56 | ECWPNPC ---
PATIENT NAME: ZAKIA BLAKE : 1955 GENDER: FEMALE VISIT DATE: 11/18/2020 DISCHARGE DATE: 11/18/20 1439 VISIT LOCKED DATE TIME: PHYSICIAN: JAVAD VILLALOBOS MD RESOURCE: JAVAD VILLALOBOS MD REASON FOR APPOINTMENT 1. BILATERAL THERAPEUTIC LUMBAR FACET BLOCK L4-5,L5-S1 HISTORY OF PRESENT ILLNESS GENERAL: -. FALL RISK SCREENING: SCREENING : NO FALLS REPORTED IN THE LAST YEAR. PAIN SCREENING: PATIENT HAS A COMPLAINT OF ACUTE OR CHRONIC PAIN :YES LOCATION OF PAIN:LOW BACK BUTTOCKS INTENSITY OF PAIN (SCALE OF 1 TO 10):9 WHAT DOES YOUR PAIN FEEL LIKE:ACHING, CONTINOUS, SHARP, STABBING DURATION:CONTINOUS, CONSTANT, STEADY, ALL DAY PAIN IS INCREASED BY:ACTIVITIES, PROLONGED STANDING PROLONGED SITTING PAIN IS DECREASED BY:OTHERS MOVING SLOW NURSING NOTE: -. PAIN CENTER INTAKE QUESTIONS: DO YOU HAVE A HISTORY OF MRSA? :NO DO YOU TAKE A BLOOD THINNERS? :NO DO YOU HAVE ANY BLEEDING DISORDERS? :NO ANY NEW NUMBNESS OR WEAKNESS IN YOUR LEGS OR ARMS? :YES WEAKNESS BILAT LEGS ANY PACEMAKER,DEFIBRILLATOR, OR DORSAL COLUMN STIMULATOR? :NO DO YOU HAVE ANY RASHES OR OPEN SORES? :NO ARE YOU ALLERGIC TO IV DYE? :NO ARE YOU DIABETIC? :NO ANY NEW PROBLEMS WITH YOUR MEDICATIONS? :NO HAVE YOU RECEIVED A VACCINE IN THE PAST 30 DAYS? :NO DO YOU PLAN TO RECEIVE A VACCINE IN THE NEXT 21 DAYS? :NO DO YOU TAKE ANY IMMUNOSUPPRESSIVE MEDICATIONS? :NO ANY HISTORY OF SEIZURES? :NO ANY HISTORY OF CARDIAC ISSUES OR EVENTS? :YES IRREGULAR HR DO YOU HAVE ANY KIDNEY OR LIVER DISEASE? :NO DO YOU HAVE SLEEP APNEA? :NO ANY RECENT HEAD INJURY? :NO DO YOU HAVE ANY NEW INFECTIONS? :NO BUG BITE/ ALLERGIC REACTION TO SIDE OF HEAD. PATIENT PUT ON TAPERING DOSE OF PREDNISONE. DR. VILLALOBOS AWARE. IS THERE A CHANCE YOU COULD BE ? :NO ARE YOU BREAST FEEDING? :NO WHEN DID YOU LAST EAT? : 11/17/2020 1800 WHEN DID YOU LAST DRINK? : 11/18/2020 0638 WHAT DID YOU LAST DRINK? : WATER NAME OF PERSON DRIVING YOU HOME? : [facility]BEL DO YOU HAVE ANY OTHER QUESTIONS OR CONCERNS? : NO CURRENT MEDICATIONS TAKING BENADRYL 25 MG TABLET 1 TABLET NEEDED ORALLY EVERY 6 HRS TAKING CALCIUM 500 MG TABLET 1 TABLET ORALLY DAILY TAKING VITAMIN D 1000 UNIT CAPSULE 1 CAPSULE ORALLY ONCE A DAY TAKING ST [place] WORT TABLET 2 TABLET ORALLY ONCE A DAY TAKING DESONIDE CREAM 1 APPLICATION TO AFFECTED AREA EXTERNALLY TWICE A DAY TAKING SINGULAIR 10 MG TABLET 1 TABLET ORALLY ONCE A DAY TAKING CLARITIN 10 MG TABLET 1 TABLET ORALLY ONCE A DAY NEEDED TAKING POTASSIUM 1 TAB ORAL 550MG OTC 1 TAB PER DAY TAKING FAMOTIDINE 10 MG TABLET 1 TABLET NEEDED ORALLY TWICE A DAY TAKING BACLOFEN 10 MG TABLET 1 TAB ORALLY NEEDED PRN FOR SPASMS AND PAIN TAKING MAGNESIUM 200 MG TABLET 2 TABLETS WITH A MEAL ORALLY ONCE A DAY, NOTES: NOT SURE OF DOSE NOT-TAKING PREDNISONE 20 MG TABLET 1 TABLET ORALLY ONCE A DAY, NOTES: 11/17/2020 LAST DOSE NOT-TAKING TUMS 500 MG TABLET CHEWABLE 1 TABLET ORALLY ONCE A DAY, NOTES: TAKES NEEDED NOT-TAKING RANITIDINE HCL 150 MG CAPSULE 1 CAP ORALLY TWICE A DAY MEDICATION LIST REVIEWED AND RECONCILED WITH THE PATIENT PAST MEDICAL HISTORY ASTHMA GERD DISCOID LUPUS DIVERTICULITIS ULCERATIVE COLITIS HIATAL HERNIA GASTRITIS THORACIC AND LUMBAR PAIN HEREDITARY SPHEROCYTOSIS IRREGULAR HEARTBEAT (05/02/20) 2ND COVID 05/31/20 ALLERGIES WHEAT: NAUSEA/VOMITING LACTOSE: NAUSEA/VOMITING - ALLERGY BANDAIDS: RASH - ALLERGY FLEXERIL: HIVES - ALLERGY NITROFURANTOIN: RASH - ALLERGY SULFA (FOR ALLERGY USE ONLY): RASH - ALLERGY SOCIAL HISTORY GENERAL: TOBACCO USE ARE YOU A:NONSMOKER ADDITIONAL FINDINGS: TOBACCO GLT-VBDPVVO-COUSDU FOR PERSONAL REASONS LATEX QUESTIONNAIRE LATEX ALLERGY : HAVE YOU EVER DEVELOPED ANY TYPE OF REACTION AFTER HANDLING LATEX PRODUCTS SUCH RUBBER GLOVES, CONDOMS, DIAPHRAGMS, BALLOONS, SOCKS, OR UNDERWEAR?YES - PLEASE INDICATE :OTHER (DOCUMENT IN NOTES) BANDAIDS LATEX ALLERGY : HAVE YOU EVER DEVELOPED ANY TYPE OF REACTION DURING OR AFTER DENTAL APPOINTMENT, VAGINAL/RECTAL EXAMINATION, SURGICAL PROCEDURE, OR ANY OTHER EXPOSURE?NO LATEX RISK : HAVE YOU EVER HAD ANY DIFFICULTY BREATHING OR HIVES AFTER EATING OR HANDLING ANY FRUITS, OR VEGETABLES; SUCH KIWI, BANANAS, STONE FRUITS, OR CHESTNUTSNO LATEX RISK : DO YOU HAVE A PREVIOUS PERSONAL HISTORY OF MORE THAN NINE SURGERIES, SPINA BIFIDA, OR REPEATED CATHERIZATIONS? NO LATEX RISK : ARE YOU FREQUENTLY EXPOSED TO LATEX PRODUCTS IN YOUR OCCUPATION?NO DATE ASKED : 11/04/2020 ALCOHOL USE: NO. ALCOHOL SCREENING DID YOU HAVE A DRINK CONTAINING ALCOHOL IN THE PAST YEAR?NO POINTS0 INTERPRETATIONNEGATIVE RECREATIONAL DRUG USE DRUG USE?NO PATIENT DENIES ABUSE OR MISSUSED OF ANY MEDICATION DENIES 09/04/19 CAFFEINE CAFFEINE USE?NO ZOROASTRIANISM [id number] SIKH LANGUAGE LANGUAGES SPOKEN:IRISH LEARNING BARRIERS / SPECIAL NEEDS CHANGE FROM LAST VISIT?NO BARRIERS TO LEARNING?NO HEARING IMPAIRED?YES : SELECTIVE HEARING VISION IMPAIRED?YES :CORRECTIVE LENSES COGNITIVELY IMPAIRED?YES READINESS TO LEARN?YES LEARNING PREFERENCES?YES :TAPES/VIDEOS, BOOKLETS, HANDOUTS, DEMONSTRATION/VERBAL INSTRUCTION LEARNING CAPABILITIES PRESENT?YES EMOTIONAL BARRIERS?NO SPECIAL DEVICES?NO OFFICE ASSISTANCE NEEDED?NO DOMESTIC VIOLENCE DO YOU FEEL SAFE IN YOUR ENVIRONMENT?YES DIET: GLUTEN FREE, LACTOSE FREE. EXERCISE: STRETCHES, WALKS. TODAY'S VISITNOTES 09/04/19 PATIENT DESCRIBES PAIN :ACHING, HAVE IT ALL THE TIME, SHARP, STABBING SHARP AND STABBING WITH SOME MOVEMENTS, ACHING ALL THE TIME, WAKING UP FROM PAIN IN HER SLEEP FROM 0-10, WHAT LEVEL IS YOUR PAIN TODAY?8 PRECIPITATING FACTORS MOVEMENT MAKES IT WORSE ALLEVIATING FACTORS STRETCHING HELPS SOMETIMES, BACLOFEN DOES HELP WHEN SHE USES PRN - PFS REFERRAL NEEDED?NO CLERGY REFERRAL NEEDED?NO PUBLIC HEALTH REFERRAL NEEDED?NO WAS THE PROVIDER NOTIFIED OF ANY PERTINENT INFO? N/A HAS THE PATIENT BEEN EDUCATED REGARDING HIS/HER PLAN OF CARE?YES HAS THE PATIENT BEEN EDUCATED REGARDING PAIN, THE RISK FOR PAIN, THE IMPORTANCE OF EFFECTIVE PAIN MANAGEMENT, AND THE PAIN ASSESSMENT PROCESS?YES ADVANCE DIRECTIVE ADVANCE DIRECTIVE DISCUSSED WITH PATIENT:YES PT HAS HCP [facility] [phone] 01/13/18 REVIEWED WITH PT. AD02/28/18 REVIEWED WITH PT. AD05/16/18 1140 REVIEWED WITH PT LASREVIEWED WITH PT 07/03/18 1029 BVREVIEWED WITH PT 09/22/18 1055 BVREVIEWED WITH PT 01/10/19 1006 NLJREVIEWED WITH PATIENT 04/20/2019 1051 JS. VITAL SIGNS WT 146.0 LBS, WT-KG 66.23 KG, HT 61 1/2, BMI 27.14 INDEX, BP 134/70 MM HG, HR 64 /MIN, RR 18 /MIN, TEMP 99.1 F, OXYGEN SAT % 96%, SAFE IN ENV? (Y/N) YES, NA INITIALS AW 1124, REVIEWED BY: Veronica OSULLIVAN RN. EXAMINATION GENERAL: A HISTORY AND PHYSICAL EXAM ON THE PATIENT WAS DONE ON 11/04/2020 (DATE OF ORIGINAL ASSESSMENT) IN PREPARATION OF SURGERY/PROCEDURE. I HAVE NOW REASSESSED THIS PATIENT'S HEALTH STATUS AND PERFORMED AN UPDATED EXAM TODAY. ALL CHANGES IN THE PATIENT'S HISTORY, PHYSICAL EXAM, PRE-EXISTING CONDITONS, AND INDICATIONS/CONTRAINDICATIONS TO THE PLANNED PROCEDURE AND ANESTHESIA ARE DOCUMENTED AND EVALUATED BELOW. I ATTEST TO THE ADEQUACY AND APPROPRIATENESS OF MY ASSESSMENT, AND CONFIRM THE NECESSITY FOR THE PLANNED PROCEDURE. THE PATIENT IS ALERT, ORIENTED TIMES THREE AND COOPERATIVE. LUNGS ARE CLEAR TO AUSCULTATION. HEART SHOWS REGULAR RHYTHM, NO MURMURS AND NO GALLOPS. ASSESSMENTS SPONDYLOSIS OF LUMBAR REGION WITHOUT MYELOPATHY OR RADICULOPATHY - M47.816 (PRIMARY) TREATMENT SPONDYLOSIS OF LUMBAR REGION WITHOUT MYELOPATHY OR RADICULOPATHY [facility] FACET BLOCK (PAIN)[id number] MEDICATION: PAIN VALIUM TAB 5MG ORALLY (DIAZEPAM)[id number],CHRISTIANNE R 11/18/2020 12:35:41 PM > VERIFIED FIFI BELTRE 11/18/2020 12:40:53 PM > ADMINISTERED MEDICATION: PAIN OXYCODONE HCL TAB 5MG ORALLY [id number],CHRISTIANNE R 11/18/2020 12:35:57 PM > VERIFIED PATT,FIFI 11/18/2020 12:41:23 PM > ADMINISTERED OTHERS CLINICAL NOTES: PAT COMPLETED 11/17/20 Colleen CAPONE RN. PROCEDURES PAIN NURSING RECORD : PATIENT MET CRITERIA FOR END OF APPOINTMENT AT 1435 PROCEDURE IN ROOM 1330, PHYSICIAN IN ROOM 1415, START 1417, FINISH 1424, PHYSICIAN OUT OF ROOM 1425, OUT OF ROOM 1432, ECG NORMAL SINUS, PATIENT SHIELDED NO, SAFETY STRAP YES, PREP CHLOROPREP Gabbie JACKSON RN, DRESSING TEGADERM DR. VILLALOBOS LOC: 1. ALERT, ORIENTEDRENETTA TOM 11/18/2020 1:45:04 PM > RESP: 1. REGULAR, NO DYSPNEARENETTA TOM 11/18/2020 1:45:10 PM > COLOR: 1. PINKRENETTAIZZY 11/18/2020 1:45:13 PM > SKIN: 1. WARM, DRYRENETTA TOM 11/18/2020 1:45:19 PM > POSITION: 1. PRONERENETTA TOM 11/18/2020 1:45:23 PM > VITALS: 1255 P55 R18 0297% BP 125/59 AW P57 02 98% BP132/65 AW 1400 - HR 56, 98%, 143/62, R 14 TBRADLEYRN 1415 - HR63, 98%, 128/63, R14 TBRADLEYRN 1430 - HR 58, 128/63, 98% R14 TBRADLEYRN NOTES Gabbie JACKSON RN COMPLETION OF PROCEDURE APPOINTMENT: POST PAIN 3, DRESSING SITE DRY AND INTACT, IV N/A, GAIT STEADY, TEACHING COMPLETED, PATIENT ACKNOWLEDGES UNDERSTANDING YES, PROCEDURE APPOINTMENT COMPLETED AT 1435 BY: Gabbie JACKSON RN PN WORKMANS' COMP OPINION IN YOUR OPINION, WAS THE INCIDENT THAT THE PATIENT DESCRIBED THE COMPETENT MEDICAL CAUSE OF THIS INJURY/ILLNESS? YES ARE THE PATIENT'S COMPLAINTS CONSISTENT WITH HIS/HER HISTORY OF THE INJURY/ILLNESS? YES IS THE PATIENT'S HISTORY OF THE INJURY/ILLNESS CONSISTENT WITH YOUR OBJECTIVE FINDING? YES WHAT IS THE PERCENTAGE OF TEMPORARY IMPAIRMENT? MODERATE TO MARKED = 66.7% IS THE PATIENT WORKING? YES DOCTOR ON SITE: JAVAD HATHAWAY MD PN LUMBAR FACET BLOCK THERAPEUTIC PRE PROCEDURE DIAGNOSIS LUMBAR SPONDYLOSIS, LUMBOSACRAL SPONDYLOSIS POST PROCEDURE DIAGNOSIS LUMBAR SPONDYLOSIS, LUMBOSACRAL SPONDYLOSIS PROCEDURE BILATERAL L4-L5 AND BILATERAL L5-S1 LUMBAR FACET THERAPEUTIC BLOCK SURGEON DR. JAVAD VILLALOBOS MORTGAGE PROTECTION SPECIALIST NONE ANESTHESIA LOCAL PRE PROCEDURE NOTE THE PATIENT HAS A HISTORY OF CHRONIC LOW BACK PAIN. I EVALUATED THE PATIENT AND REVIEWED THE CHART. I WENT OVER THE RISKS, ALTERNATIVES, AND BENEFITS ASSOCIATED WITH THIS PROCEDURE. THE PATIENT WOULD LIKE TO PROCEED AND GIVES CONSENT TO PERFORM THE PROCEDURE. THE PATIENT DENIES UNEXPLAINABLE WEIGHT LOSS, FEVER, CHILLS, OR NEW CHANGES IN URINARY OR BOWEL CONTROL. THE PATIENT IS COVID-19 NEGATIVE DESCRIPTION OF PROCEDURE THE PATIENT WAS BROUGHT TO THE PROCEDURE ROOM AND PLACED IN THE PRONE POSITION. THE LUMBOSACRAL AREA WAS CLEANED WITH CHLORAPREP SOLUTION AND DRAPED ASEPTICALLY. THE PROCEDURE WAS DONE UNDER STERILE CONDITIONS. A TIMEOUT WAS PERFORMED WHERE THE CONSENTED SITE WAS VERIFIED WITH EVERYONE IN THE ROOM. UNDER FLUOROSCOPIC GUIDANCE, THE TARGET POINT WAS SELECTED AT THE RIGHT AND LEFT L4-L5 AND RIGHT AND LEFT L5-S1 FACET JOINTS. TARGET POINT WAS SELECTED AFTER LATERAL ROTATION AND TILT OF THE MAGNIFIER OF THE C-ARM. I CONFIRMED AGAIN THE SITE OF TARGET. LIDOCAINE 0.5% WAS USED TO NUMB THE SKIN AND THE SUBCUTANEOUS TISSUE BELOW IT. SPINAL NEEDLES, 22-GAUGE, WERE ADVANCED UNDER FLUOROSCOPIC GUIDANCE AND FOLLOWING PATIENT FEEDBACK UNTIL THE TARGETS WERE TOUCHED. THE POSITION OF THE NEEDLES WAS VERIFIED WITH AP AND LATERAL VIEWS. AFTER PROPER POSITION OF THE NEEDLES WAS ACHIEVED, ISOVUE-M DYE 30%, 0.1 ML, WAS INJECTED SHOWING ADEQUATE SPREAD OF THE DYE. KENALOG 10 MG WAS INJECTED AT EACH SITE. THEN, A SOLUTION OF 1.0 ML OF BUPIVACAINE 0.125% OF WAS USED TO FLUSH EACH SITE. THE MEDICATION WAS VERIFIED WITH THE NURSE. THERE WAS NO EVIDENCE OF BLOOD, PARESTHESIA OR CEREBROSPINAL FLUID DURING THE PROCEDURE. THE PATIENT WAS SENT TO THE RECOVERY ROOM. THE PATIENT WAS MOVING THE EXTREMITIES AND DOING WELL. THERE WERE NO COMPLICATIONS DURING THE PROCEDURE. ESTIMATED BLOOD LOSS WAS LESS THAN 5 ML. FLUOROSCOPY TIME WAS 34 SECONDS POST PROCEDURE NOTE THE PATIENT WILL BE SEEN IN A FOLLOW UP IN THE NEXT FEW WEEKS. I AM LOOKING FOR LONG LASTING RELIEF FOR THE PATIENT WITH THIS INTERVENTION. INSTRUCTIONS WERE GIVEN, QUESTIONS WERE ANSWERED, AND THE PATIENT EXPRESSED UNDERSTANDING AND AGREES WITH THE PLAN. I, KARIN GAYTAN, DOCUMENTED THE ABOVE INFORMATION ACTING A SCRIBE FOR DR. VILLALOBOS. I HAVE REVIEWED THE ABOVE DOCUMENT, WRITTEN BY KARIN GAYTAN, ELECTRONIC ORGAN TECHNICIAN, AND I VERIFY THAT IT IS ACCURATE VISIT CODES PROCEDURE CODES 51672 INJ PARAVERT F JNT L/S 1 LEV, MODIFIERS: 50 [id number] INJ PARAVERT F JNT L/S 2 LEV, MODIFIERS: 50 DISPOSITION & COMMUNICATION FOLLOW UP FOLLOW UP WITH TAXI SERVICER (REASON: POST BILATERAL THERAPEUTIC LUMBAR FACET BLOCK L4-L5, L5-S1) ELECTRONICALLY SIGNED BY JAVAD VILLALOBOS MD, MD ON 11/21/2020 AT 02:08 PM EDT DISCLAIMER : THIS IS A VISIT SUMMARY EXTRACTED FROM THE [employer] CHART. IT IS NOT A COPY OF THE [employer] PROGRESS NOTE. MTDD
== END ==
LOC: M PAIN 11:20
PROVIDERS: ATTEND Anesthesiology
DX: M47.816 Spondylosis without myelopathy or radiculopathy, lumbar region (principal); J45.909 Unspecified asthma, uncomplicated; Z88.2 Allergy status to sulfonamides; Z88.8 Allergy status to other drugs, medicaments and biological substances; Z91.011 Allergy to milk products; Z91.018 Allergy to other foods; Z91.09 Other allergy status, other than to drugs and biological substances; Z79.899 Other long term (current) drug therapy
CPT/HCPCS: 64493; 64494; J3301; Q9967

== ENCOUNTER → 2021-02-18 | Outpatient (CLI) | payer OTHER ==
[~2021-02-18] MED LIST changes: -BUPIVACAINE HCL 0.25% 30ML VIAL As Ordered ONE; -ISOVUE-M 300 61% 15ML VIAL As Ordered ONE; -LIDOCAINE 1% SDV 30ML VIAL As Ordered ONE; -TRIAMCINOLONE ACETONIDE SUSP 40 MG/ML VIAL (J3301) As Ordered ONE; -diazePAM 5MG TABLET As Ordered ONE; -oxyCODONE 5MG TAB As Ordered ONE
== END ==
LOC: M PAIN 10:15
PROVIDERS: ATTEND Anesthesiology
DX: G89.29 Other chronic pain (principal); M47.817 Spondylosis without myelopathy or radiculopathy, lumbosacral region; M47.816 Spondylosis without myelopathy or radiculopathy, lumbar region; J45.909 Unspecified asthma, uncomplicated; Z88.2 Allergy status to sulfonamides; Z88.8 Allergy status to other drugs, medicaments and biological substances; Z91.011 Allergy to milk products; Z91.018 Allergy to other foods; Z91.09 Other allergy status, other than to drugs and biological substances; Z79.899 Other long term (current) drug therapy

== ENCOUNTER → 2021-05-28 | Outpatient (CLI) | payer OTHER | LOC: M PAIN 10:00 | PROVIDERS: ATTEND Nurse Practitioner Family | DX: M51.16 Intervertebral disc disorders with radiculopathy, lumbar region (principal); M47.816 Spondylosis without myelopathy or radiculopathy, lumbar region; J45.909 Unspecified asthma, uncomplicated; K21.9 Gastro-esophageal reflux disease without esophagitis; L93.0 Discoid lupus erythematosus; K44.9 Diaphragmatic hernia without obstruction or gangrene; Z79.899 Other long term (current) drug therapy; Z88.2 Allergy status to sulfonamides; Z88.8 Allergy status to other drugs, medicaments and biological substances; Z91.018 Allergy to other foods; Z91.048 Other nonmedicinal substance allergy status; E73.9 Lactose intolerance, unspecified ==

== ENCOUNTER → 2021-06-16 | Outpatient (CLI) | payer OTHER | LOC: M PAIN 10:30 | PROVIDERS: ATTEND Nurse Practitioner Family | DX: M51.16 Intervertebral disc disorders with radiculopathy, lumbar region (principal); M47.816 Spondylosis without myelopathy or radiculopathy, lumbar region; J45.909 Unspecified asthma, uncomplicated; K21.9 Gastro-esophageal reflux disease without esophagitis; L93.0 Discoid lupus erythematosus; K51.90 Ulcerative colitis, unspecified, without complications; K44.9 Diaphragmatic hernia without obstruction or gangrene; Z79.899 Other long term (current) drug therapy; Z88.2 Allergy status to sulfonamides; Z88.8 Allergy status to other drugs, medicaments and biological substances; Z91.018 Allergy to other foods; Z91.048 Other nonmedicinal substance allergy status ==

== ENCOUNTER → 2021-09-08 | Outpatient (CLI) | payer OTHER | LOC: M PAIN 10:00 | PROVIDERS: ATTEND Nurse Practitioner Family | DX: M47.816 Spondylosis without myelopathy or radiculopathy, lumbar region (principal); M47.817 Spondylosis without myelopathy or radiculopathy, lumbosacral region; J45.909 Unspecified asthma, uncomplicated; K21.9 Gastro-esophageal reflux disease without esophagitis; L93.0 Discoid lupus erythematosus; K51.90 Ulcerative colitis, unspecified, without complications; K44.9 Diaphragmatic hernia without obstruction or gangrene; Z79.899 Other long term (current) drug therapy; Z88.2 Allergy status to sulfonamides; Z88.8 Allergy status to other drugs, medicaments and biological substances; Z91.018 Allergy to other foods; Z91.048 Other nonmedicinal substance allergy status ==

== ENCOUNTER → 2022-02-14 | Outpatient (CLI) | payer OTHER | LOC: M LABSMTC 11:10 | PROVIDERS: ATTEND Anesthesiology | DX: Z01.812 Encounter for preprocedural laboratory examination (principal) ==

== ENCOUNTER → 2022-02-18 | Outpatient (CLI) | payer OTHER ==
[~2022-02-18] MED LIST changes: +BUPIVACAINE HCL 0.25% 30ML VIAL As Ordered ONE; +ISOVUE-M 300 61% 15ML VIAL As Ordered ONE; +LIDOCAINE 1% SDV 30ML VIAL As Ordered ONE; +TRIAMCINOLONE ACETONIDE SUSP 40 MG/ML VIAL (J3301) As Ordered ONE; +diazePAM 5MG TABLET As Ordered ONE; +oxyCODONE 5MG TAB As Ordered ONE
== END ==
LOC: M PAIN 07:50
PROVIDERS: ATTEND Anesthesiology
DX: M47.816 Spondylosis without myelopathy or radiculopathy, lumbar region (principal); M47.817 Spondylosis without myelopathy or radiculopathy, lumbosacral region; J45.909 Unspecified asthma, uncomplicated; K21.9 Gastro-esophageal reflux disease without esophagitis; L93.0 Discoid lupus erythematosus; K51.90 Ulcerative colitis, unspecified, without complications; K44.9 Diaphragmatic hernia without obstruction or gangrene; K29.70 Gastritis, unspecified, without bleeding; M54.50 Low back pain, unspecified; E73.9 Lactose intolerance, unspecified; M54.6 Pain in thoracic spine; D58.0 Hereditary spherocytosis; I49.9 Cardiac arrhythmia, unspecified; Z79.899 Other long term (current) drug therapy; Z88.2 Allergy status to sulfonamides; Z88.8 Allergy status to other drugs, medicaments and biological substances; Z91.018 Allergy to other foods
CPT/HCPCS: 64493; 64494; J3301

== ENCOUNTER → 2022-03-01 | Outpatient (CLI) | payer OTHER ==
[~2022-03-01] MED LIST changes: -BUPIVACAINE HCL 0.25% 30ML VIAL As Ordered ONE; -ISOVUE-M 300 61% 15ML VIAL As Ordered ONE; -LIDOCAINE 1% SDV 30ML VIAL As Ordered ONE; -TRIAMCINOLONE ACETONIDE SUSP 40 MG/ML VIAL (J3301) As Ordered ONE; -diazePAM 5MG TABLET As Ordered ONE; -oxyCODONE 5MG TAB As Ordered ONE
== END ==
LOC: M PAIN 13:00
PROVIDERS: ATTEND Anesthesiology
DX: G89.29 Other chronic pain (principal); M47.816 Spondylosis without myelopathy or radiculopathy, lumbar region; J45.909 Unspecified asthma, uncomplicated; Z88.2 Allergy status to sulfonamides; Z88.8 Allergy status to other drugs, medicaments and biological substances; Z91.011 Allergy to milk products; Z91.018 Allergy to other foods; Z91.09 Other allergy status, other than to drugs and biological substances; Z79.899 Other long term (current) drug therapy

== ENCOUNTER → 2022-05-10 | Outpatient (CLI) | payer OTHER | LOC: M PAIN 15:45 → M TMPAIN 15:45 | PROVIDERS: ATTEND Anesthesiology | DX: M47.816 Spondylosis without myelopathy or radiculopathy, lumbar region (principal); G89.29 Other chronic pain; J45.909 Unspecified asthma, uncomplicated; Z88.2 Allergy status to sulfonamides; Z88.8 Allergy status to other drugs, medicaments and biological substances; Z91.011 Allergy to milk products; Z91.018 Allergy to other foods; Z91.09 Other allergy status, other than to drugs and biological substances; Z79.899 Other long term (current) drug therapy ==

== ENCOUNTER → 2022-11-03 | Outpatient (CLI) | payer OTHER ==
[~2022-11-03] MED LIST changes: +MONT-5 PO; -SING10TA32 PO
== END ==
LOC: M PAIN 10:30
PROVIDERS: ATTEND Anesthesiology
DX: M79.18 Myalgia, other site (principal); M47.816 Spondylosis without myelopathy or radiculopathy, lumbar region; M54.50 Low back pain, unspecified; J45.909 Unspecified asthma, uncomplicated; K21.9 Gastro-esophageal reflux disease without esophagitis; L93.0 Discoid lupus erythematosus; K44.9 Diaphragmatic hernia without obstruction or gangrene; D58.0 Hereditary spherocytosis; Z79.899 Other long term (current) drug therapy; Z88.2 Allergy status to sulfonamides; Z88.8 Allergy status to other drugs, medicaments and biological substances; Z91.048 Other nonmedicinal substance allergy status; Z91.018 Allergy to other foods; E73.9 Lactose intolerance, unspecified

== ENCOUNTER → 2022-12-02 | Outpatient (CLI) | payer OTHER | LOC: M PAIN 15:15 | PROVIDERS: ATTEND Anesthesiology | DX: M47.816 Spondylosis without myelopathy or radiculopathy, lumbar region (principal); G89.29 Other chronic pain; M54.50 Low back pain, unspecified; J45.909 Unspecified asthma, uncomplicated; K21.9 Gastro-esophageal reflux disease without esophagitis; L93.0 Discoid lupus erythematosus; K44.9 Diaphragmatic hernia without obstruction or gangrene; D58.0 Hereditary spherocytosis; Z79.899 Other long term (current) drug therapy; Z88.2 Allergy status to sulfonamides; Z88.8 Allergy status to other drugs, medicaments and biological substances; Z91.018 Allergy to other foods; Z91.048 Other nonmedicinal substance allergy status; E73.9 Lactose intolerance, unspecified ==

== ENCOUNTER → 2023-03-08 | Outpatient (CLI) | payer OTHER ==
[~2023-03-08] MED LIST changes: +ISOVUE-M 300 61% 15ML VIAL As Ordered ONE; +LIDOCAINE 1% SDV 30ML VIAL As Ordered ONE; +TRIAMCINOLONE ACETONIDE SUSP 40MG/ML 1ML VIAL As Ordered ONE; +diazePAM 5MG TABLET As Ordered ONE; +oxyCODONE 5MG TAB As Ordered ONE
== END ==
LOC: M PAIN 12:45
PROVIDERS: ATTEND Anesthesiology
DX: M47.816 Spondylosis without myelopathy or radiculopathy, lumbar region (principal); Z88.1 Allergy status to other antibiotic agents; Z88.2 Allergy status to sulfonamides; Z88.8 Allergy status to other drugs, medicaments and biological substances; Z91.011 Allergy to milk products; Z91.018 Allergy to other foods; Z91.040 Latex allergy status; Z91.09 Other allergy status, other than to drugs and biological substances; Z79.899 Other long term (current) drug therapy
CPT/HCPCS: 64493; 64494; J0665; J3301; Q9967

== ENCOUNTER → 2023-04-27 | Outpatient (CLI) | payer OTHER ==
[~2023-04-27] MED LIST changes: -ISOVUE-M 300 61% 15ML VIAL As Ordered ONE; -LIDOCAINE 1% SDV 30ML VIAL As Ordered ONE; -TRIAMCINOLONE ACETONIDE SUSP 40MG/ML 1ML VIAL As Ordered ONE; -diazePAM 5MG TABLET As Ordered ONE; -oxyCODONE 5MG TAB As Ordered ONE
== END ==
LOC: M PAIN 11:00
PROVIDERS: ATTEND Anesthesiology
DX: M47.816 Spondylosis without myelopathy or radiculopathy, lumbar region (principal); G89.29 Other chronic pain; M54.50 Low back pain, unspecified; M54.6 Pain in thoracic spine; J45.909 Unspecified asthma, uncomplicated; K21.9 Gastro-esophageal reflux disease without esophagitis; Z79.899 Other long term (current) drug therapy; Z88.1 Allergy status to other antibiotic agents; Z88.2 Allergy status to sulfonamides; Z88.8 Allergy status to other drugs, medicaments and biological substances; Z91.040 Latex allergy status; Z91.018 Allergy to other foods

== ENCOUNTER → 2023-07-13 | Outpatient (CLI) | payer OTHER | LOC: M PAIN 11:00 | PROVIDERS: ATTEND Anesthesiology | DX: M47.816 Spondylosis without myelopathy or radiculopathy, lumbar region (principal); M54.50 Low back pain, unspecified; J45.909 Unspecified asthma, uncomplicated; K21.9 Gastro-esophageal reflux disease without esophagitis; L93.0 Discoid lupus erythematosus; K44.9 Diaphragmatic hernia without obstruction or gangrene; E73.9 Lactose intolerance, unspecified; Z79.899 Other long term (current) drug therapy; Z88.2 Allergy status to sulfonamides; Z88.0 Allergy status to penicillin; Z88.1 Allergy status to other antibiotic agents; Z88.8 Allergy status to other drugs, medicaments and biological substances; Z91.018 Allergy to other foods; Z91.048 Other nonmedicinal substance allergy status ==

== ENCOUNTER → 2023-10-19 | Outpatient (CLI) | payer OTHER | LOC: M PAIN 11:00 | PROVIDERS: ATTEND Anesthesiology | DX: M47.816 Spondylosis without myelopathy or radiculopathy, lumbar region (principal); G89.29 Other chronic pain; M54.50 Low back pain, unspecified; J45.909 Unspecified asthma, uncomplicated; K21.9 Gastro-esophageal reflux disease without esophagitis; L93.0 Discoid lupus erythematosus; K44.9 Diaphragmatic hernia without obstruction or gangrene; M35.00 Sjogren syndrome, unspecified; Z79.899 Other long term (current) drug therapy; Z88.1 Allergy status to other antibiotic agents; Z88.2 Allergy status to sulfonamides; Z88.8 Allergy status to other drugs, medicaments and biological substances; Z91.040 Latex allergy status; Z91.018 Allergy to other foods ==

== ENCOUNTER → 2024-01-25 | Outpatient (CLI) | payer OTHER | LOC: M PAIN 13:30 | PROVIDERS: ATTEND Anesthesiology | DX: M47.816 Spondylosis without myelopathy or radiculopathy, lumbar region (principal); G89.29 Other chronic pain; J45.909 Unspecified asthma, uncomplicated; K21.9 Gastro-esophageal reflux disease without esophagitis; L93.0 Discoid lupus erythematosus; K51.90 Ulcerative colitis, unspecified, without complications; M54.6 Pain in thoracic spine; M54.50 Low back pain, unspecified; M35.00 Sjogren syndrome, unspecified; Z79.899 Other long term (current) drug therapy; Z88.1 Allergy status to other antibiotic agents; Z88.2 Allergy status to sulfonamides; Z88.8 Allergy status to other drugs, medicaments and biological substances; Z91.040 Latex allergy status; Z91.018 Allergy to other foods; Z91.048 Other nonmedicinal substance allergy status ==

== ENCOUNTER → 2024-05-02 | Outpatient (CLI) | payer OTHER | LOC: M PAIN 10:45 | PROVIDERS: ATTEND Anesthesiology | DX: M47.816 Spondylosis without myelopathy or radiculopathy, lumbar region (principal); G89.29 Other chronic pain; M54.50 Low back pain, unspecified; J45.909 Unspecified asthma, uncomplicated; K21.9 Gastro-esophageal reflux disease without esophagitis; Z79.899 Other long term (current) drug therapy; Z88.2 Allergy status to sulfonamides; Z88.1 Allergy status to other antibiotic agents; Z88.8 Allergy status to other drugs, medicaments and biological substances; Z91.040 Latex allergy status ==